=== PATIENT | female | born 1955 | race Caucasian/White ===

== ENCOUNTER 2017-06-30 00:04 | Emergency (ER) | payer MEDICAID ==
[~2017-06-30] VITALS: Ht 154.9 cm; Wt 59.0 kg
[~2017-06-30 00:04] MED LIST: LEVO500T21 PO; METO25TA5 PO
[2017-06-30] MEDS ORDERED: ADENOSINE 6 MG/2 ML INJ IV ONE (00:30)
[2017-06-30 01:19] LABS: Basophils # (auto) 0.1 uL; Basophils % (auto) 0.7 % (0.0-2.0); Eosinophils # (auto) 0.2 uL; Eosinophils % (auto) 2.3 % (0.0-7.0); Hematocrit 44.2 % (36.0-46.0); Hemoglobin 14.4 g/dL (12.2-16.2); Lymphocytes # (auto) 3.3 uL; Lymphocytes % (auto) 39.5 % (10.0-50.0); Mean Corpuscular Hemoglobin 28.9 pg (28.0-32.0); Mean Corpuscular Hgb Conc. 32.5 g/dL (32.0-36.0); Mean Corpuscular Volume 88.8 fL (80.0-100.0); Mean Platelet Volume 9.6 fL (6.9-10.8); Monocytes # (auto) 0.5 uL; Monocytes % (auto) 5.6 % (0.0-12.0); Neutrophils # (auto) 4.3 uL; Neutrophils % (auto) 51.9 % (37.0-80.0); Nucleated Red Blood Cells % 0.1 %; Platelet Count (auto) 275 10^3/uL (140-450); Red Cell Distribution Width 14.9 % (11.8-14.3); White Blood Cell 8.3 10^3/uL (4.4-10.8)
[2017-06-30 01:31] LABS: Albumin 3.2 g/dL (3.4-5.0); BUN/Creatinine Ratio 17.3; Calcium 8.1 mg/dL (8.5-10.1); Magnesium 2.5 mg/dL (1.6-2.6)
[2017-06-30 01:34] LABS: Bilirubin, Total 0.2 mg/dL (0.2-1.0); Total Protein 6.8 g/dL (6.4-8.2)
[2017-06-30 01:41] LABS: Temperature: 21.1 C (20.0-25.0)
[2017-06-30 02:11] VITALS: BP 168/108
[2017-06-30] MEDS ORDERED: FUROSEMIDE 20 MG/2 ML VIAL IV ONE (02:15)
== END 2017-06-30 02:58 | disposition home or self-care (01) ==
LOC: EDBD 00:04 → ER 00:16
DX: I47.1 Supraventricular tachycardia (principal); I50.9 Heart failure, unspecified; E07.9 Disorder of thyroid, unspecified; F17.210 Nicotine dependence, cigarettes, uncomplicated; Z79.899 Other long term (current) drug therapy
CPT/HCPCS: 36415; 71010; 80053; 83735; 83880; 84484; 85025; 93005; 96374; 96375; 99285; J1940

== ENCOUNTER 2017-07-28 21:27 | Inpatient (IN) | payer MEDICAID ==
[~2017-07-28] VITALS: Ht 162.6 cm; Wt 72.6 kg
[2017-07-28 22:03] LABS: Basophils # (auto) 0.1 uL; Basophils % (auto) 1.2 % (0.0-2.0); Eosinophils # (auto) 0.1 uL; Eosinophils % (auto) 1.2 % (0.0-7.0); Hematocrit 41.2 % (36.0-46.0); Hemoglobin 13.6 g/dL (12.2-16.2); Lymphocytes # (auto) 1.7 uL; Lymphocytes % (auto) 24.5 % (10.0-50.0); Mean Corpuscular Hemoglobin 29.3 pg (28.0-32.0); Mean Corpuscular Volume 88.8 fL (80.0-100.0); Monocytes # (auto) 0.4 uL; Monocytes % (auto) 6.3 % (0.0-12.0); Neutrophils # (auto) 4.6 uL; Neutrophils % (auto) 66.8 % (37.0-80.0); Nucleated Red Blood Cells % 0.1 %; Platelet Count (auto) 298 10^3/uL (140-450); Red Blood Cells 4.64 10^6/uL (4.0-5.20); Red Cell Distribution Width 14.7 % (11.8-14.3); White Blood Cell 6.9 10^3/uL (4.4-10.8)
[2017-07-28 22:24] LABS: INR 0.93 (0.9-1.15); Partial Thromboplastin Time 26.4 sec (22.64-33.71); Prothrombin Time 10.1 sec (9.37-12.3)
[2017-07-28 22:26] LABS: Alanine Aminotransferase 24 U/L (13-56); Alkaline Phosphatase 101 U/L (45-117); Anion Gap 7 (5-15); Aspartate Aminotransferase 20 U/L (15-37); BUN/Creatinine Ratio 23.2; Bilirubin, Total 0.1 mg/dL (0.2-1.0); Blood Urea Nitrogen 22 mg/dL (7-18); Calcium 7.5 mg/dL (8.5-10.1); Carbon Dioxide 22 mmol/L (21-32); Chloride 116 mmol/L (98-107); GFR African American 77 mL/min; GFR Non-African American 63 mL/min; Glucose 84 mg/dL (74-106); Magnesium 2.5 mg/dL (1.6-2.6); Potassium 3.7 mmol/L (3.5-5.1); Sodium 145 mmol/L (136-145); Total Protein 6.3 g/dL (6.4-8.2)
[2017-07-29 00:50] LABS: Alcohol, Urine < 3.0 mg/dL (0-5); Amphetamine Screen, Urine POSITIVE (NEGATIVE); Barbiturate Scree,Urine NEGATIVE (NEGATIVE); Benzodiazephine Screen, Urine NEGATIVE (NEGATIVE); Cannabinoid Screen, Urine NEGATIVE (NEGATIVE); Cocaine Screen, Urine NEGATIVE (NEGATIVE); Opiate Scree,Urine NEGATIVE (NEGATIVE); Phencyclidine Screen, Urine NEGATIVE (NEGATIVE)
[2017-07-29 01:01] LABS: Urine Blood Normal /uL (Negative); Urine Specific Gravity 1.027 (1.001-1.035)
[2017-07-29 01:03] LABS: Urine Bacteria MODERATE /hpf (None Seen); Urine WBC 5 /hpf (0 - 5)
[2017-07-29 01:04] LABS: Urine Hyaline Cast FEW /lpf (0 - 2)
[2017-07-29] MEDS ORDERED: MORPHINE SULF INJ 2 MG/ML SYRINGE 1ML IV PRN (04:30)
[2017-07-29] MEDS ORDERED: ONDANSETRON HCL 4 MG/2 ML VIAL IV PRN (04:30)
[2017-07-29] MEDS ORDERED: ACETAMINOPHEN 500 MG TAB PO PRN (04:30)
[2017-07-29] MEDS ORDERED: NITROGLYCERIN 0.4 MG SL TAB SL PRN (04:30)
[2017-07-29] MEDS ORDERED: HYDROcodone-ACET 5/325MG TAB PO PRN (04:30)
[2017-07-29] MEDS ORDERED: FUROSEMIDE 40 MG/4 ML VIAL IV ONE (04:30)
[2017-07-29] MEDS ORDERED: cefTRIAXone SOD 1,000 MG VL ONE (04:34)
[2017-07-29] MEDS ORDERED: cefTRIAXone 1GM/10ml IVPUSH 10 ML IV ONE (05:00)
[2017-07-29 06:05] LABS: Basophils # (auto) 0.1 uL; Basophils % (auto) 1.5 % (0.0-2.0); Eosinophils # (auto) 0.1 uL; Eosinophils % (auto) 1.7 % (0.0-7.0); Hematocrit 44.5 % (36.0-46.0); Hemoglobin 14.5 g/dL (12.2-16.2); Lymphocytes # (auto) 2.7 uL; Lymphocytes % (auto) 37.4 % (10.0-50.0); Mean Corpuscular Hemoglobin 28.8 pg (28.0-32.0); Mean Corpuscular Hgb Conc. 32.7 g/dL (32.0-36.0); Mean Corpuscular Volume 88.3 fL (80.0-100.0); Monocytes # (auto) 0.5 uL; Monocytes % (auto) 6.9 % (0.0-12.0); Neutrophils # (auto) 3.7 uL; Neutrophils % (auto) 52.5 % (37.0-80.0); Nucleated Red Blood Cells % 0.1 %; Platelet Count (auto) 289 10^3/uL (140-450); Red Blood Cells 5.03 10^6/uL (4.0-5.20); Red Cell Distribution Width 14.3 % (11.8-14.3); White Blood Cell 7.1 10^3/uL (4.4-10.8)
[2017-07-29 06:34] LABS: BUN/Creatinine Ratio 23.8; Calcium 8.1 mg/dL (8.5-10.1); Potassium 4.1 mmol/L (3.5-5.1)
[2017-07-29] MEDS ORDERED: METOPROLOL TARTRATE 25 MG TAB PO SCH (10:00)
[2017-07-29 14:28] VITALS: BP 119/74
[2017-07-30] MEDS ORDERED: cefTRIAXone 1GM/10ml IVPUSH 10 ML IV SCH (09:00)
[2017-07-30] MEDS ORDERED: FUROSEMIDE 20 MG TAB PO SCH (10:00)
== END 2017-07-29 14:57 | disposition left against medical advice (07) | DRG 201 ==
LOC: EDSEX 21:27 → EDBD 21:27 → ER 21:27 → TELE 21:28
PROVIDERS: ADMIT Nurse Practitioner Family; ATTEND Internal Medicine
DX: I47.1 Supraventricular tachycardia (principal); I50.33 Acute on chronic diastolic (congestive) heart failure; E44.0 Moderate protein-calorie malnutrition; F15.10 Other stimulant abuse, uncomplicated; I11.0 Hypertensive heart disease with heart failure; Z82.49 Family history of ischemic heart disease and other diseases of the circulatory system; Z71.6 Tobacco abuse counseling; N39.0 Urinary tract infection, site not specified; T43.625A Adverse effect of amphetamines, initial encounter
CPT/HCPCS: 36415; 71045; 80048; 80053; 80307; 81001; 83735; 83880; 84484; 85025; 85379; 85610; 85730; 93005; 96374; 96375; J0696

== ENCOUNTER 2017-08-08 03:39 | Emergency (ER) | payer MEDICAID ==
[~2017-08-08] VITALS: Ht 154.9 cm; Wt 59.0 kg
[2017-08-08] MEDS ORDERED: ADENOSINE 6 MG/2 ML INJ IV ONE ×5 (03:54→04:30)
[2017-08-08 04:52] LABS: Basophils # (auto) 0 uL; Basophils % (auto) 0.9 % (0.0-2.0); Eosinophils # (auto) 0.2 uL; Eosinophils % (auto) 3.8 % (0.0-7.0); Hematocrit 41.4 % (36.0-46.0); Hemoglobin 13.5 g/dL (12.2-16.2); Lymphocytes # (auto) 1.8 uL; Lymphocytes % (auto) 34.8 % (10.0-50.0); Mean Corpuscular Hemoglobin 28.7 pg (28.0-32.0); Mean Corpuscular Hgb Conc. 32.6 g/dL (32.0-36.0); Mean Corpuscular Volume 88.2 fL (80.0-100.0); Monocytes # (auto) 0.4 uL; Monocytes % (auto) 7.6 % (0.0-12.0); Neutrophils # (auto) 2.7 uL; Neutrophils % (auto) 52.9 % (37.0-80.0); Nucleated Red Blood Cells % 0.1 %; Platelet Count (auto) 219 10^3/uL (140-450); Red Blood Cells 4.69 10^6/uL (4.0-5.20); Red Cell Distribution Width 14.8 % (11.8-14.3)
[2017-08-08] MEDS ORDERED: ONDANSETRON HCL 4 MG/2 ML VIAL IV ONE (05:00)
[2017-08-08] MEDS ORDERED: SODIUM CHLORIDE 0.9% 1,000 ML IV ONE (05:00)
[2017-08-08 05:09] LABS: Alanine Aminotransferase 37 U/L (13-56); Albumin 3.2 g/dL (3.4-5.0); Anion Gap 9 (5-15); Calcium 8.1 mg/dL (8.5-10.1); Carbon Dioxide 24 mmol/L (21-32); Chloride 107 mmol/L (98-107); Glucose 105 mg/dL (74-106); Magnesium 2.2 mg/dL (1.6-2.6); Potassium 3.9 mmol/L (3.5-5.1); Sodium 140 mmol/L (136-145)
[2017-08-08 05:12] LABS: Alkaline Phosphatase 97 U/L (45-117); Aspartate Aminotransferase 35 U/L (15-37); Bilirubin, Total 0.2 mg/dL (0.2-1.0); Blood Urea Nitrogen 13 mg/dL (7-18); GFR African American 92 mL/min; GFR Non-African American 76 mL/min; Total Protein 6.7 g/dL (6.4-8.2)
[2017-08-08 05:56] VITALS: BP 144/94
== END 2017-08-08 06:03 | disposition home or self-care (01) ==
LOC: EDBD 03:39 → ER 03:39
DX: I47.1 Supraventricular tachycardia (principal); R00.2 Palpitations; F15.10 Other stimulant abuse, uncomplicated; F17.210 Nicotine dependence, cigarettes, uncomplicated; F12.10 Cannabis abuse, uncomplicated; Z79.2 Long term (current) use of antibiotics; Z79.899 Other long term (current) drug therapy
CPT/HCPCS: 36415; 71045; 80053; 83735; 84443; 84484; 85025; 93005; 96361; 96374; 99285; J0153

== ENCOUNTER 2017-08-19 02:21 | Emergency (ER) | payer MEDICAID ==
[~2017-08-19] VITALS: Ht 154.9 cm; Wt 59.0 kg
[2017-08-19] MEDS ORDERED: LORazepam 2MG/ML-1ML VIAL IV ONE (02:30)
[2017-08-19] MEDS ORDERED: ADENOSINE 6 MG/2 ML INJ IV ONE ×2 (02:37→02:45)
[2017-08-19 05:07] VITALS: BP 103/55
== END 2017-08-19 05:13 | disposition home or self-care (01) ==
LOC: EDBD 02:21 → ER 02:23
DX: I47.1 Supraventricular tachycardia (principal); F15.10 Other stimulant abuse, uncomplicated; E07.9 Disorder of thyroid, unspecified; F17.210 Nicotine dependence, cigarettes, uncomplicated; F12.10 Cannabis abuse, uncomplicated
CPT/HCPCS: 92960; 93005; 96374; 96375; 99284; J0153; J2060

== ENCOUNTER 2019-01-27 18:21 | Emergency (ER) | payer MEDICAID ==
[~2019-01-27] VITALS: Ht 162.6 cm; Wt 65.8 kg
[2019-01-27 18:33] VITALS: BP 171/96
[2019-01-27 19:08] LABS: Basophils # (auto) 0.1 uL; Basophils % (auto) 1.1 % (0.0-2.0); Eosinophils # (auto) 0.1 uL; Eosinophils % (auto) 1.6 % (0.0-7.0); Hematocrit 45.8 % (36.0-46.0); Hemoglobin 15.3 g/dL (12.2-16.2); Lymphocytes # (auto) 1.6 uL; Lymphocytes % (auto) 17.2 % (10.0-50.0); Mean Corpuscular Hemoglobin 28.9 pg (28.0-32.0); Mean Corpuscular Hgb Conc. 33.3 g/dL (32.0-36.0); Mean Corpuscular Volume 86.6 fL (80.0-100.0); Monocytes # (auto) 0.4 uL; Monocytes % (auto) 4.5 % (0.0-12.0); Neutrophils % (auto) 75.6 % (37.0-80.0); Platelet Count (auto) 269 10^3/uL (140-450); Red Blood Cells 5.28 10^6/uL (4.0-5.20); Red Cell Distribution Width 15.5 % (11.8-14.3); White Blood Cell 9.3 10^3/uL (4.4-10.8)
[2019-01-27 19:21] LABS: Albumin 3.9 g/dL (3.4-5.0); Anion Gap 9 (5-15); BUN/Creatinine Ratio 11.5; Blood Urea Nitrogen 12 mg/dL (7-18); Calcium 8.2 mg/dL (8.5-10.1); Carbon Dioxide 24 mmol/L (21-32); Chloride 109 mmol/L (98-107); GFR African American 69 mL/min; GFR Non-African American 57 mL/min; Glucose 108 mg/dL (74-106); Potassium 4.1 mmol/L (3.5-5.1); Sodium 142 mmol/L (136-145)
[2019-01-27 19:26] LABS: Alanine Aminotransferase 22 U/L (13-56); Alkaline Phosphatase 104 U/L (45-117); Aspartate Aminotransferase 19 U/L (15-37); Bilirubin, Total 0.4 mg/dL (0.2-1.0); Total Protein 7.5 g/dL (6.4-8.2)
== END 2019-01-27 20:22 | disposition left against medical advice (07) ==
LOC: ER 18:21 → EDBD 18:21 → ER 20:22
DX: G40.909 Epilepsy, unspecified, not intractable, without status epilepticus (principal); F17.210 Nicotine dependence, cigarettes, uncomplicated; F12.10 Cannabis abuse, uncomplicated; F15.10 Other stimulant abuse, uncomplicated; Z95.0 Presence of cardiac pacemaker; Z86.39 Personal history of other endocrine, nutritional and metabolic disease
CPT/HCPCS: 36415; 80053; 80185; 83735; 84484; 85025

== ENCOUNTER 2024-06-29 20:40 | Emergency (ER) | payer BC, MEDICAID ==
[~2024-06-29] VITALS: Ht 154.9 cm; Wt 59.0 kg
[~2024-06-29 20:40] MED LIST changes: -LEVO500T21 PO; +LEVO500T31 PO
[2024-06-29 21:57] VITALS: TEMP 98.6
[2024-06-29] MEDS ORDERED: PRED10TA PO (22:05)
[2024-06-29] MEDS ORDERED: AMOX875T4 PO (22:05)
--- NOTE | 2024-06-29 22:05 | ED.PDOC ---
SOB-HPI HPI Comments 68-year-old female presents to ER with complaints of cough x2 days. Patient reports that she has been experiencing dry cough and congestion x2 days. Denies any pain. Denies use of medications for current symptoms. Patient presents to ER ambulatory on arrival, with steady gait, in no distress. 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 History: No Pertinent FINANCIAL PLANNING ANALYST History Family History Family History: No family hx of Cancer, No family hx of DM Family History (Other): epilepsy Social History Smoker: Cigarettes, Greater Than 1 Pack/Day Alcohol: Denies ETOH Use Drugs: Denies Drug Use Lives In: Home Constitutional: denies: chills, diaphoresis, fatigue, fever, malaise, sweats, weakness, others EENTM: reports: others (As stated in HPI) Respiratory: reports: others (As stated in HPI) Cardiovascular: denies: chest pain, dizzy spells, diaphoresis, Dyspnea on exertion, edema, irregular heart beat, left arm pain, lightheadedness, palpitations, PND, syncope, others Gastrointestinal: denies: abdomen distended, abdominal pain, blood streaked bowels, constipated, diarrhea, dysphagia, difficulty swallowing, hematemesis, melena, nausea, poor appetite, poor fluid intake, rectal bleeding, rectal pain, vomiting, others Genitourinary: denies: abnormal vagina bleeding, burning, dyspareunia, dysuria, flank pain, frequency, hematuria, incontinence, pain, , vagina discharge, urgency, others Neurological: denies: dizziness, fainting, headache, left sided numbness, left sided weakness, numbness, paresthesia, pre-existing deficit, right sided numbness, right sided weakness, seizure, speech problems, tingling, tremors, weakness, others Musculoskeletal: denies: back pain, gout, joint pain, joint swelling, muscle pain, muscle stiffness, neck pain, others Integumetry: denies: bruises, change in color, change in hair/nails, dryness, laceration, lesions, lumps, rash, wounds, others Allergic/Immunocompromised: denies: Difficulty Healing, Frequent Infections, Hives, Itching, others Hematologic/Lymphatic: denies: anemia, blood clots, easy bleeding, easy bruising, swollen glands, others Endocrine: denies: excessive hunger, excessive sweating, excessive thirst, excessive urination, flushing, intolerance to cold, intolerance to heat, unexplained weight gain, unexplained weight loss, others Psychiatric: denies: anxiety, bipolar disorder, depression, hopeless, panic disorder, schizophrenia, sleepless, suicidal, others Physical Exam General Appearance: No Apparent Distress HEENT: Normal ENT Inspection, PERRL/EOMI, Pharynx Normal, TMs Normal Neck: Full Range of Motion, Non-Tender, Normal Respiratory: Chest Non-Tender, Lungs Clear, No Accessory Muscle Use, No Respiratory Distress, Normal Breath Sounds Cardiovascular: No Murmur, No Gallop, Regular Rate/Rhythm Breast Exam: Deferred Gastrointestinal: NOT DONE Genitalia: Deferred Pelvic: Deferred Rectal: Deferred Extremities: Normal capillary refill, Normal range of motion Neurologic: Alert, wrinkle chaser II-XII nml as Tested, No Motor Deficits, Normal Affect, Normal Mood, No Sensory Deficits Cerebellar Function: Normal Reflexes: Normal Skin: Dry, Normal Color, Warm Peripheral Pulses: 2+ Radial (R), 2+ Radial (L), 2+ Brachial (R), 2+ Brachial (L) Lymphatic: No Adenopathy Was a procedure done? Was a procedure done?: No Sedation Sedation?: No Differential Dx Differential Diagnosis: Pneumonia, Respiratory Distress, Pharyngitis X-Ray, Labs, Meds, VS Vital Signs Date Time Temp Pulse Resp B/P (MAP) Pulse Ox O2 Delivery O2 Flow Rate FiO2 06/29/24 21:57 99 16 94 Room Air 06/29/24 21:57 98.6 0 16 145/103 (117) 94 98.6 06/29/24 21:21 98.6 99 16 145/103 (117) 94 Current Medications Medications (Trade) Dose Ordered Sig/Lianet Route Start Time Stop Time Status Last Admin Ceftriaxone Sodium (Rocephin) 1,000 mg ONCE ONCE IM 06/29/24 22:15 06/29/24 22:16 06/29/24 22:06 Rocephin 1 g IM ordered Smoking cessation discussed and advised Patient in no distress during ER visit/prior to discharge Advised to follow up with PCP in 1-2 days Patient verbalized understanding and agreeable with current plan of care Advised to return to ER immediately if symptoms worsen Time of 1ST Reevaluation: 21:44 Reevaluation 1ST: N/A Patient Education/Counseling: Diagnosis, Treatment, Prognosis, Need For Follow Up Family Education/Counseling: No Family Present Departure 1 Departure Time of Disposition: 22:02 Impression: Primary Impression: Upper respiratory infection Qualified Codes: J06.9 - Acute upper respiratory infection, unspecified Disposition: 01 HOME / SELF CARE / HOMELESS Condition: Stable e-Prescriptions Prednisone (Prednisone) 10 Mg Tab 10 MG PO BID for 5 Days, #10 TAB 0 Refills Prov: NELY CARABALLO 06/29/24 Amoxicillin & Pot Clavulanate (Amoxicillin/Potassium Cla) 875 Mg Tab 1 TAB PO BID for 7 Days, #14 TAB 0 Refills Prov: NELY CARABALLO 06/29/24 Discharged With: Self Critical Care Note Critical Care Time?: No Stability Stability form required: No Heart Score Heart Score: Heart Score Response (Comments) Value History N/A 0 EKG N/A 0 Age N/A 0 Risk Factors N/A 0 Troponin N/A 0 Total 0 NELY CARABALLO Jun 29, 2024 22:05
[2024-06-29] MEDS: cefTRIAXone SOD 1,000 MG VL IM ONE (22:06)
[2024-06-29 22:10] VITALS: BP 108/76; PULSE 101; RESP 18; O2SAT 95
== END 2024-06-29 22:15 | disposition home or self-care (01) ==
LOC: ER 20:40
DX: J06.9 Acute upper respiratory infection, unspecified (principal); I10 Essential (primary) hypertension; F17.210 Nicotine dependence, cigarettes, uncomplicated
CPT/HCPCS: 96372; 99283; J0696

== ENCOUNTER 2024-08-19 18:28 | Emergency (ER) | payer BC, MEDICAID ==
[~2024-08-19] VITALS: Ht 157.5 cm; Wt 69.0 kg
[~2024-08-19 18:28] MED LIST changes: +AMOX875T4 PO; +PRED10TA PO
[2024-08-19 18:55] VITALS: BP 178/97; PULSE 102
--- NOTE | 2024-08-19 18:58 | ED.PDOC ---
SOB-HPI HPI Comments 68-year-old female who came to ER for shortness of breath. Patient has history of hypertension, COPD, status post pacemaker insertion, has been off her medications for 6 months. States for the past 4 days, she has been having flu- like symptoms, with productive cough of whitish sputum, congestion, shortness of breath, wheezing and body pains. Upon arrival blood pressure was 178/97 mm Hg, saturating 93% on room air. Chief Complaint: Shortness of Breath Time Seen by MD: 18:57 Primary Care Provider: ARAM Reviewed notes: Nurses Notes Information Source: Patient Mode of Arrival: Ambulatory Severity: Moderate Timing: Days Duration: Intermittent Context: With Light Exertion PE Risk Factors: None History of: COPD Prehospital treatment: None Modifying Factors: Nothing Associated Signs and Symptoms: Wheeze, Cough, Nasal Congestion If cough with SOB: Productive, White Review of Systems REVIEW OF SYSTEMS: No fever, no chills, or fatigue HEENT: No sore throat, no earache, no congestion, no neck pain. Cardiac: No chest pain. No palpitations. Lungs: (+) shortness of breath, (+) cough. GI: No nausea, no vomiting, no diarrhea, no constipation, no abdominal pain : No dysuria, frequency, or urgency. No hematuria. Musculoskeletal: No joint pain , no joint swelling, no extremity edema. Skin: No rash, no itching. Neuro: No headache, no dizziness, no weakness Vital Signs Vital Signs Date Time Temp Pulse Resp B/P (MAP) Pulse Ox O2 Delivery O2 Flow Rate FiO2 08/19/24 19:33 16 98 Room Air* 0 21 08/19/24 18:55 98.1 102 178/97 (124) Physical Exam General: Awake, alert and oriented. No acute distress. Skin: Skin in warm, dry and intact. Appropriate color for ethnicity. Nailbeds pink with no cyanosis. HEENT: The head is normocephalic and atraumatic. Conjunctivae are clear without exudates or hemorrhage. Sclera is non-icteric. EOM are intact. No signs of nystagmus. Eyelids are normal in appearance without swelling or lesions. Oral mucosa is pink and moist Neck: The neck is supple with normal range of motion. No JVD. Cardiac: Heart rate and rhythm are normal. No murmurs, gallops, or rubs are auscultated. Respiratory: No signs of respiratory distress. Lung sounds are clear in all lobes bilaterally without rales, ronchi, or wheezes. Abdominal: Abdomen is soft, non-tender without distention. Bowel sounds are present and normoactive in all four quadrants. Extremities: Upper and lower extremities are atraumatic in appearance without deformity or edema. Neurological: The patient is awake, alert and oriented to person, place, and time with normal speech. Speech is clear. There is no facial asymmetry. Psychiatric: Appropriate mood and affect. Good judgement and insight. No visual or auditory hallucinations. Past Medical History PAST MEDICAL HISTORY: COPD, HTN Surgical History: Pacemaker AIRCRAFT ENGINE MECHANIC History: No Pertinent AIRCRAFT ENGINE MECHANIC History Family History Family History: No family hx of Cancer, No family hx of DM Family History (Other): epilepsy Social History Smoker: Cigarettes Alcohol: Denies ETOH Use Drugs: Denies Drug Use Lives In: Home Was a procedure done? Was a procedure done?: No Differential Dx Differential Diagnosis: Asthma, Bronchitis, CHF, COPD, Myocardial infarction, Pneumonia, Pulmonary Embolism, Respiratory Distress, URI, Other X-Ray, Labs, Meds, VS Vital Signs Date Time Temp Pulse Resp B/P (MAP) Pulse Ox O2 Delivery O2 Flow Rate FiO2 08/19/24 19:33 16 98 Room Air* 0 21 08/19/24 18:55 98.1 102 20 178/97 (124) 94 08/19/24 18:54 20 94 Room Air* 0 21 Lab Test 08/19/24 19:30 08/19/24 18:51 Range/Units White Blood Count 7.3 4.4-10.8 10^3/uL Red Blood Count 4.85 4.0-5.20 10^6/uL Hemoglobin 14.0 12.2-16.2 g/dL Hematocrit 42.3 36.0-46.0 % Mean Corpuscular Volume 87.2 80.0-100.0 fL Mean Corpuscular Hemoglobin 28.9 28.0-32.0 pg Mean Corpuscular Hemoglobin Concent 33.1 32.0-36.0 g/dL Red Cell Distribution Width 14.1 11.8-14.3 % Platelet Count 262 140-450 10^3/uL Mean Platelet Volume 9.5 6.9-10.8 fL Neutrophils (%) (Auto) 67.3 37.0-80.0 % Lymphocytes (%) (Auto) 24.9 10.0-50.0 % Monocytes (%) (Auto) 5.1 0.0-12.0 % Eosinophils (%) (Auto) 2.0 0.0-7.0 % Basophils (%) (Auto) 0.7 0.0-2.0 % Neutrophils # (Auto) 4.9 1.6-8.6 10 ^3/uL Lymphocytes # (Auto) 1.8 0.4-5.4 10 ^3/uL Monocytes # (Auto) 0.4 0-1.3 10 ^3/uL Eosinophils # (Auto) 0.1 0-0.8 10 ^3/uL Basophils # (Auto) 0.1 0-0.2 10 ^3/uL Nucleated Red Blood Cells 0.1 % Sodium Level 142 136-145 mmol/L Potassium Level 3.5 3.5-5.1 mmol/L Chloride Level 109 H 98-107 mmol/L Carbon Dioxide Level 24 20-31 mmol/L Anion Gap 9 5-15 Blood Urea Nitrogen 9 9-23 mg/dL Creatinine 1.50 H 0.550-1.02 mg/dL Glomerular Filtration Rate Calc 37 >90 mL/min BUN/Creatinine Ratio 6.0 L 10.0-20.0 Serum Glucose 120 H 74-106 mg/dL Calcium Level 9.6 8.7-10.4 mg/dL Total Bilirubin 0.3 0.2-1.0 mg/dL Aspartate Amino Transferase (AST) 15 13-40 U/L Alanine Aminotransferase (ALT) 12 7-40 U/L Alkaline Phosphatase 126 H 46-116 U/L B-Type Natriuretic Peptide 82.46 0-100 pg/mL Total Protein 6.7 5.7-8.2 g/dL Albumin 4.5 3.2-4.8 g/dL Influenza Type A Antigen Negative Negative Influenza Type B Antigen Negative Negative SARS-CoV-2 Antigen (Rapid) Negative NEGATIVE Time of 1ST Reevaluation: 20:44 Reevaluation 1ST: N/A Patient Education/Counseling: Treatment, Other, Pt Unresponsive Family Education/Counseling: No Family Present Departure 1 Departure Time of Disposition: 20:44 Impression: Primary Impression: Cough Additional Impression: Acute kidney injury Disposition: 09 ADMITTED INPATIENT Condition: Stable Comments 68-year-old female who presents to the emergency department with flu-like symptoms. Workup significant for acute kidney injury, GFR is reduced, creatinine elevated compared to previous results. Patient has no known history of chronic kidney disease. Patient was to be admitted for further treatment, evaluation and monitoring however she eloped from the emergency department prior to discussing test results and plan of treatment. Extensive evaluation was performed in attempt to identify or rule out: (See differential diagnosis section) The following tests were ordered, and results were reviewed by me: (See diagnostic results section) The following test were independently interpreted by me: EKG I reviewed and agreed with the following test results read by other providers: N/A I reviewed the following notes from the pt's past medical encounters: July 02, 2024 ED visit Additional information was gathered from interviewing the following independent historians: N/A Discussion of management or test interpretation with external physician/other qualified health daycare teacher: N/A Decision regarding hospitalization or escalation of hospital level of care: Risk and benefits of admission for further treatment of patient's condition was considered. Due to patient's current clinical condition, high risk of decline and poor outcome if discharged and need for further inpatient management and monitoring, patient will be admitted to the hospital. Critical Care Note Critical Care Time?: No Critical care comment: Shortness of breath Stability Stability form required: No Heart Score Heart Score: Heart Score Response (Comments) Value History Moderate Suspicious 1 EKG Normal 0 Age >65 2 Risk Factors >3 or Hx ASHD 2 Troponin Normal limit 0 Total 5 I personally scribed for KENA FULLER MD ([email or web address]) on 08/19/24 at 18:58. Electronically submitted by Balta Romero ([employer]). I personally scribed for KENA FULLER MD ([email or web address]) on 08/19/24 at 20:26. Electronically submitted by Balta Romero ([employer]). KENA FULLER MD Aug 19, 2024 18:58
[2024-08-19 19:33] VITALS: RESP 16; O2SAT 98
[2024-08-19] MEDS: IPRATROPIUM BROM 0.5 MG/2.5ML INH SOL NEB ONE (19:33)
[2024-08-19] MEDS: ALBUTEROL SULF 2.5 MG/0.5ML(0.5%) NEB SOLN NEB ONE (19:33)
[2024-08-19 19:57] LABS: Basophils # (auto) 0.1 10 ^3/uL (0-0.2); Basophils % (auto) 0.7 % (0.0-2.0); Eosinophils # (auto) 0.1 10 ^3/uL (0-0.8); Hematocrit 42.3 % (36.0-46.0); Lymphocytes # (auto) 1.8 10 ^3/uL (0.4-5.4); Lymphocytes % (auto) 24.9 % (10.0-50.0); Mean Corpuscular Hemoglobin 28.9 pg (28.0-32.0); Mean Corpuscular Hgb Conc. 33.1 g/dL (32.0-36.0); Mean Corpuscular Volume 87.2 fL (80.0-100.0); Monocytes # (auto) 0.4 10 ^3/uL (0-1.3); Monocytes % (auto) 5.1 % (0.0-12.0); Neutrophils # (auto) 4.9 10 ^3/uL (1.6-8.6); Neutrophils % (auto) 67.3 % (37.0-80.0); Nucleated Red Blood Cells % 0.1 %; Platelet Count (auto) 262 10^3/uL (140-450); Red Blood Cells 4.85 10^6/uL (4.0-5.20); Red Cell Distribution Width 14.1 % (11.8-14.3); White Blood Cell 7.3 10^3/uL (4.4-10.8)
[2024-08-19 19:58] LABS: Rapid Influenza A Negative (Negative); Rapid Influenza B Negative (Negative)
[2024-08-19 19:59] LABS: COVID19 ANTIGEN SOFIA FIA NEGATIVE (NEGATIVE)
[2024-08-19 20:10] LABS: Alanine Aminotransferase 12 U/L (7-40); Anion Gap 9 (5-15); Aspartate Aminotransferase 15 U/L (13-40); Blood Urea Nitrogen 9 mg/dL (9-23); Calcium 9.6 mg/dL (8.7-10.4); Carbon Dioxide 24 mmol/L (20-31); Potassium 3.5 mmol/L (3.5-5.1); Sodium 142 mmol/L (136-145)
[2024-08-19 20:11] LABS: Albumin 4.5 g/dL (3.2-4.8); Bilirubin, Total 0.3 mg/dL (0.2-1.0); Total Protein 6.7 g/dL (5.7-8.2)
[2024-08-19 20:12] LABS: Alkaline Phosphatase 126 U/L (46-116); Chloride 109 mmol/L (98-107); Glucose 120 mg/dL (74-106)
[2024-08-19] MEDS ORDERED: SODIUM CHLORIDE 0.9% 1,000 ML IV ONE (20:45)
== END 2024-08-19 23:00 | disposition left against medical advice (07) ==
LOC: ER 18:28
DX: N17.9 Acute kidney failure, unspecified (principal); J44.9 Chronic obstructive pulmonary disease, unspecified; I10 Essential (primary) hypertension; F17.210 Nicotine dependence, cigarettes, uncomplicated; Z95.0 Presence of cardiac pacemaker; Z20.822 Contact with and (suspected) exposure to COVID-19
CPT/HCPCS: 36415; 80053; 83880; 85025; 87426; 87804; 94640

== ENCOUNTER 2024-10-15 16:21 | Emergency (ER) | payer BC, MEDICAID ==
[~2024-10-15] VITALS: Ht 154.9 cm; Wt 63.6 kg
--- NOTE | 2024-10-15 17:48 | DVH ---
Procedure: US GALLBLADDER Study Date and Requested Time: 10/15/2024 04:50 PM History: pain Comparison: None Technique: Multiple high resolution martins-scale images obtained of the right upper quadrant of the abd omen with color Doppler for evaluation of blood flow and vascularity as indicated. Findings: Liver normal in size, measuring 14 cm in length, with increased echogenicity and normal contours. No evidence of focal hepatic lesions, intrahepatic or extrahepatic ductal dilatation. Common bile duct i s not visualized. Cholelithiasis with evidence of gallbladder wall thickening or pericholecystic fluid. Negative sonogr aphic Magallanes's sign. Pancreas is obscured by bowel gas Right kidney measures 8 cm in length, with normal contours, echotexture, and cortical thickness. No e vidence of hydronephrosis, calculi, cystic or solid renal lesions. Partially visualized inferior vena cava unremarkable. Impression: Cholelithiasis with no evidence of acute cholecystitis. Slight increased hepatic echogenicity which may be from hepatic disease/hepatic steatosis. Pancreas and common bile duct are obscured by bowel gas. Mild atrophy of the right kidney.
[2024-10-15] MEDS: PANTOPRAZOLE 40 MG/10 ML VIAL INJ IV ONE (18:27)
[2024-10-15] MEDS: PROCHLORPERAZINE EDISYLATE 5 MG/ML 2ML VIAL IV ONE (18:28)
[2024-10-15] MEDS: MORPHINE SULFATE 4 MG/ML SYR/VIAL IV ONE (18:29)
[2024-10-15] MEDS: cloNIDine HCL 0.1 MG TAB PO ONE (18:36)
[2024-10-15 18:44] LABS: Basophils # (auto) 0.1 10 ^3/uL (0-0.2); Basophils % (auto) 0.5 % (0.0-2.0); Eosinophils # (auto) 0.1 10 ^3/uL (0-0.8); Eosinophils % (auto) 0.6 % (0.0-7.0); Hematocrit 51.1 % (36.0-46.0); Hemoglobin 16.7 g/dL (12.2-16.2); Lymphocytes # (auto) 1.4 10 ^3/uL (0.4-5.4); Mean Corpuscular Hemoglobin 28.6 pg (28.0-32.0); Mean Corpuscular Hgb Conc. 32.6 g/dL (32.0-36.0); Mean Corpuscular Volume 87.9 fL (80.0-100.0); Monocytes # (auto) 0.3 10 ^3/uL (0-1.3); Monocytes % (auto) 2.9 % (0.0-12.0); Neutrophils # (auto) 8.9 10 ^3/uL (1.6-8.6); Nucleated Red Blood Cells % 0.2 %; Platelet Count (auto) 234 10^3/uL (140-450); Red Blood Cells 5.82 10^6/uL (4.0-5.20); Red Cell Distribution Width 14.5 % (11.8-14.3); White Blood Cell 10.8 10^3/uL (4.4-10.8)
[2024-10-15 18:55] LABS: Alanine Aminotransferase 14 U/L (7-40); Anion Gap 9 (5-15); Aspartate Aminotransferase 16 U/L (13-40); BUN/Creatinine Ratio 10.6 (10.0-20.0); Blood Urea Nitrogen 10 mg/dL (9-23); Calcium 9.9 mg/dL (8.7-10.4); Carbon Dioxide 24 mmol/L (20-31); Lipase 42 U/L (12-53); Potassium 3.7 mmol/L (3.5-5.1); Sodium 142 mmol/L (136-145)
[2024-10-15 18:56] LABS: Bilirubin, Total 0.5 mg/dL (0.2-1.0)
[2024-10-15 19:10] LABS: Albumin 5.1 g/dL (3.2-4.8); Alkaline Phosphatase 148 U/L (46-116); Chloride 109 mmol/L (98-107); Glucose 172 mg/dL (74-106)
[2024-10-15 19:15] VITALS: RESP 88; O2SAT 95
--- NOTE | 2024-10-15 19:17 | ECG ---
[facility] Test Date: 2024-10-15 Test Time: 16:25:31 Pat Name: ROMEL ARAUJO Department: ED Room: Gender: F Bed Operator: delio : 1955 Requested By: BE FARRIS Order Number: [id number] Reading MD: Adrian Silva Measurements Intervals [place] Rate: 98 P: 50 MO: 176 QRS: -37 QRSD: 85 T: 58 QT: 375 QTc: 479 Interpretive Statements Sinus rhythm Left atrial enlargement Left axis deviation Anterior infarct, old Baseline wander in lead(s) II Electronically Signed On 10-16-2024 18:19:51 PDT by Adrian Silva Please click the below link to view image of tracing.
--- NOTE | 2024-10-15 19:55 | ED.PDOC ---
GI ASSESSMENT HPI Comments This is a 68-year-old female who comes in with chief complaint of abdominal pain times approximately 45 minutes. Patient states that she was [facility] approximately one month ago and was diagnosed with gallstones. She states that she was discharged at that time. The patient denies any nausea, vomiting or diarrhea. There has been no radiation of the pain and the patient was complaining of some bloating. Upon arrival, the patient was complaining of a significant amount of pain. 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, Medications, Allergies (No allergies to medications) Allergies: Coded Allergies: NO KNOWN ALLERGIES (Unverified , 08/19/17) Home Meds Active Scripts Prednisone (Prednisone) 10 Mg Tab, 10 MG PO BID for 5 Days, #10 TAB 0 Refills Prov:NELY CARABALLO 06/29/24 Amoxicillin & Pot Clavulanate (Amoxicillin/Potassium Cla) 875 Mg Tab, 1 TAB PO BID for 7 Days, #14 TAB 0 Refills Prov:NELY CARABALLO 06/29/24 Metoprolol Tartrate (Metoprolol Tartrate) 25 Mg Tab, 12.5 MG PO BID for 30 Days Prov:DOMINIQUE LEE MD 03/27/15 Levofloxacin (Levaquin) 500 Mg Tab, 500 MG PO DAILY for 3 Days Prov:DOMINIQUE LEE MD 03/27/15 Information Source: Patient, Emergency Med Personnel Mode of Arrival: EMS Timing: Minutes Duration: Since onset Prehospital treatment: Burning Supervisor Quality: Aching, Cramping Vomitus: None Stool: Normal Severity: Moderate Recent: None Recent Hx of: Other (Gallstones) Pain Location: Diffuse Modifying Factors: Nothing Associated sign and symptoms: Abdominal Pain, Other (Bloating) Past Medical History PAST MEDICAL HISTORY: COPD, Gallstones, HTN, Seizures Surgical History: Pacemaker 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 ASSEMBLER History: No Pertinent PUNCHBOARD ASSEMBLER History Family History Family History: No family hx of Cancer, No family hx of DM Family History (Other): epilepsy Social History Smoker: Cigarettes Alcohol: Denies ETOH Use Drugs: Denies Drug Use Lives In: Home Constitutional: denies: chills, diaphoresis, fatigue, fever, malaise, sweats, weakness, others EENTM: denies: blurred vision, double vision, ear bleeding, ear discharge, ear drainage, ear pain, ear ringing, eye pain, eye redness, hearing loss, mouth pain, mouth swelling, nasal discharge, nose bleeding, nose congestion, nose pain, photophobia, tearing, throat pain, throat swelling, voice changes, others Respiratory: denies: cough, hemoptysis, orthopnea, SOB at rest, shortness of breath, SOB with excertion, stridor, wheezing, others Cardiovascular: denies: chest pain, dizzy spells, diaphoresis, Dyspnea on exertion, edema, irregular heart beat, left arm pain, lightheadedness, palpitations, PND, syncope, others Gastrointestinal: reports: abdominal pain, nausea, vomiting; denies: abdomen distended, blood streaked bowels, constipated, diarrhea, dysphagia, difficulty swallowing, hematemesis, melena, poor appetite, poor fluid intake, rectal bleeding, rectal pain, others Genitourinary: denies: abnormal vagina bleeding, burning, dyspareunia, dysuria, flank pain, frequency, hematuria, incontinence, pain, , vagina dis charge, urgency, others Neurological: denies: dizziness, fainting, headache, left sided numbness, left sided weakness, numbness, paresthesia, pre-existing deficit, right sided numbness, right sided weakness, seizure, speech problems, tingling, tremors, weakness, others Musculoskeletal: denies: back pain, gout, joint pain, joint swelling, muscle pain, muscle stiffness, neck pain, others Integumetry: denies: bruises, change in color, change in hair/nails, dryness, laceration, lesions, lumps, rash, wounds, others Allergic/Immunocompromised: denies: Difficulty Healing, Frequent Infections, Hives, Itching, others Hematologic/Lymphatic: denies: anemia, blood clots, easy bleeding, easy bruising, swollen glands, others Endocrine: denies: excessive hunger, excessive sweating, excessive thirst, excessive urination, flushing, intolerance to cold, intolerance to heat, unexplained weight gain, unexplained weight loss, others Psychiatric: denies: anxiety, bipolar disorder, depression, hopeless, panic disorder, schizophrenia, sleepless, suicidal, others Physical Exam General Appearance: Moderate Distress HEENT: Normal ENT Inspection, Pharynx Normal, TMs Normal Neck: Full Range of Motion, Non-Tender, Normal, Normal Inspection Respiratory: Chest Non-Tender, Lungs Clear, No Accessory Muscle Use, No Respiratory Distress, Normal Breath Sounds Cardiovascular: No Edema, No JVD, No Murmur, No Gallop, Normal Peripheral Pulses, Regular Rate/Rhythm Breast Exam: Deferred Gastrointestinal: Epigastric, No Organomegaly, No Pulsatile Mass, Normal Bowel Sounds, Soft, Tenderness Genitalia: Deferred Pelvic: Deferred Rectal: Deferred Extremities: No calf tenderness, Normal capillary refill, Normal inspection, Normal range of motion, Non-tender, No pedal edema Musculoskeletal : Apperance: Normal Neurologic: Alert, 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 Was a procedure done?: No GI differential Dx Differential Diagnosis: Appendicitis, Cholangitis, Cholecystitis, Gastritis/PUD, Gastroenteritis, Inflammatory BD, Ischemic Bowel X-Ray, Labs, Meds, VS Vital Signs Date Time Temp Pulse Resp B/P (MAP) Pulse Ox O2 Delivery O2 Flow Rate FiO2 10/15/24 19:10 97 17 238/158 (184) 93 10/15/24 19:06 106 10/15/24 19:02 97 17 238/158 10/15/24 18:36 208/153 10/15/24 18:33 98.0 100 18 208/153 (171) 96 98.0 10/15/24 18:29 100 18 208/153 10/15/24 17:58 Room Air* 0 21 10/15/24 16:35 97.8 105 24 166/97 (120) 95 97.8 10/15/24 16:25 98 Lab Test 10/15/24 18:26 Range/Units White Blood Count 10.8 4.4-10.8 10^3/uL Red Blood Count 5.82 H 4.0-5.20 10^6/uL Hemoglobin 16.7 H 12.2-16.2 g/dL Hematocrit 51.1 H 36.0-46.0 % Mean Corpuscular Volume 87.9 80.0-100.0 fL Mean Corpuscular Hemoglobin 28.6 28.0-32.0 pg Mean Corpuscular Hemoglobin Concent 32.6 32.0-36.0 g/dL Red Cell Distribution Width 14.5 H 11.8-14.3 % Platelet Count 234 140-450 10^3/uL Mean Platelet Volume 9.4 6.9-10.8 fL Neutrophils (%) (Auto) 83.0 H 37.0-80.0 % Lymphocytes (%) (Auto) 13.0 10.0-50.0 % Monocytes (%) (Auto) 2.9 0.0-12.0 % Eosinophils (%) (Auto) 0.6 0.0-7.0 % Basophils (%) (Auto) 0.5 0.0-2.0 % Neutrophils # (Auto) 8.9 H 1.6-8.6 10 ^3/uL Lymphocytes # (Auto) 1.4 0.4-5.4 10 ^3/uL Monocytes # (Auto) 0.3 0-1.3 10 ^3/uL Eosinophils # (Auto) 0.1 0-0.8 10 ^3/uL Basophils # (Auto) 0.1 0-0.2 10 ^3/uL Nucleated Red Blood Cells 0.2 % Sodium Level 142 136-145 mmol/L Potassium Level 3.7 3.5-5.1 mmol/L Chloride Level 109 H 98-107 mmol/L Carbon Dioxide Level 24 20-31 mmol/L Anion Gap 9 5-15 Blood Urea Nitrogen 10 9-23 mg/dL Creatinine 0.94 0.550-1.02 mg/dL Glomerular Filtration Rate Calc 66 >90 mL/min BUN/Creatinine Ratio 10.6 10.0-20.0 Serum Glucose 172 H 74-106 mg/dL Calcium Level 9.9 8.7-10.4 mg/dL Total Bilirubin 0.5 0.2-1.0 mg/dL Aspartate Amino Transferase (AST) 16 13-40 U/L Alanine Aminotransferase (ALT) 14 7-40 U/L Alkaline Phosphatase 148 H 46-116 U/L Total Protein 8.0 5.7-8.2 g/dL Albumin 5.1 H 3.2-4.8 g/dL Lipase 42 12-53 U/L Current Medications Medications (Trade) Dose Ordered Sig/Lianet Route Start Time Stop Time Status Last Admin Morphine Sulfate 4 mg ONCE ONCE IV 10/15/24 16:30 10/15/24 16:31 DC 10/15/24 18:29 Prochlorperazine Edisylate (Compazine Inj) 10 mg ONCE ONCE IV 10/15/24 16:30 10/15/24 16:31 DC 10/15/24 18:28 Pantoprazole Sodium (Protonix) 40 mg ONCE ONCE IV 10/15/24 16:30 10/15/24 16:31 DC 10/15/24 18:27 Clonidine HCl (Catapres Tablet) 0.2 mg ONCE ONCE PO 10/15/24 18:15 10/15/24 18:18 DC 10/15/24 18:36 Gallbladder ultrasound shows: Impression: Cholelithiasis with no evidence of acute cholecystitis. Slight increased hepatic echogenicity which may be from hepatic disease/hepatic steatosis. Pancreas and common bile duct are obscured by bowel gas. Mild atrophy of the right kidney. The patient had an IV Hep-Lock established The patient was given morphine 4 mg IV push for the pain The patient was given Compazine 10 mg IV push for the nausea The patient was given Protonix 40 mg IV push The patient was also given clonidine 0.2 mg by mouth secondary to elevated blood pressure The patient was blood pressure continues to be significantly elevated so we did start the patient on a nicardipine drip The patient's CBC is within normal limits The chemistry panel is within normal limits with a normal lipase and liver enzymes Despite the pain medication, the patient was still having persistent pain The patient was being admitted with a diagnosis of intractable abdominal pain as well as cholelithiasis The patient was also admitted with accelerated hypertension Images Reviewed?: Images reviewed and evaluated by me Time of 1ST Reevaluation: 19:52 Reevaluation 1ST: Unchanged Patient Education/Counseling: Diagnosis, Treatment, Prognosis Family Education/Counseling: No Family Present Departure 1 Departure Time of Disposition: 19:51 Impression: Primary Impression: Accelerated hypertension Additional Impressions: Cholelithiasis Qualified Codes: K80.20 - Calculus of gallbladder without cholecystitis without obstruction Intractable abdominal pain Disposition: ADMITTED INPATIENT Admit to: [facility] Condition: Fair Critical Care Note Critical Care Time?: Yes (35 min-critical care time only) Stability Stability form required: Yes Unstable for transfer: ICU, CCU, PCU, [facility] (Intensive VS monitoring), ED Physician Assesment (Clinical assesment) Heart Score Heart Score: Heart Score Response (Comments) Value History N/A 0 EKG N/A 0 Age N/A 0 Risk Factors N/A 0 Troponin N/A 0 Total 0 BE FARRIS MD Oct 15, 2024 19:55
[2024-10-15] MEDS: HYDROmorphone HCL 2 MG/ML VL/or syr IV ONE (20:03)
[2024-10-15] MEDS: ONDANSETRON HCL 4 MG/2 ML VIAL IV ONE (20:04)
[2024-10-15] MEDS: LABETALOL HCL 20 MG/4 ML VL IV ONE ×2 (20:54→21:18)
[2024-10-15] MEDS: IOHEXOL 300 MG/ML 100ML BOTTLE IJ ONE (22:17)
--- NOTE | 2024-10-15 22:23 | DVH ---
Exam: CT CT AB PEL WO CON-NO ORAL OR IV History: ABdominal pain Comparison Study: None available at time of dictation. TECHNIQUE: Multidetector CT of the abdomen was performed from lung bases to pubic symphysis. Imaging was performed without IV contrast. Axial, coronal and sagittal multiplanar reformats were obtained fr om the axial data set by the technologist. Radiation Dose Information: CT Dose: CTDI volume is 12.29 mGy. Dose-length product is 729.01 mGy*cm FINDINGS: Evaluation of solid organs is limited due to lack of intravenous contrast use. Findings: Lung Bases: No acute or significant lung base finding. Normal heart size. No pleural or pericardial effusion. Liver: The liver is normal in size. No focal lesions. Gallbladder and Biliary Tree: Cholelithiasis mildly dilated gallbladder Spleen: Unremarkable Pancreas: The pancreas is grossly normal in appearance. Adrenal Glands: Unremarkable Kidneys: Kidneys are grossly normal without calculi or hydronephrosis. Bladder: Grossly unremarkable for degree of distention. Bowel: Large hiatal hernia. Small bowel and colon are normal in caliber and distribution. The append ix is not visualized; however, no secondary findings of acute appendicitis identified. Ascites: Absent Lymphadenopathy: No mesenteric, retroperitoneal or periportal lymphadenopathy. Abdominal Wall and Mesentery: Unremarkable. Vasculature: The visualized abdominal aorta is normal in size and caliber. Evaluation of abdominal a nd pelvic vessels is limited due to lack of intravenous contrast. Pelvic Organs: Unremarkable Musculoskeletal: No aggressive focal bony lesions, acute fractures or dislocation. Soft tissues: Unremarkable IMPRESSION: 1. Numerous prominent gallstones and mildly dilated gallbladder 2. No findings of bowel obstruction Radiation optimization: All CT scans at this facility use at least one of these dose optimization remigio hniques: automated exposure control mA and/or kV adjustment per patient size (includes targeted exam s where dose is matched to clinical indication) or iterative reconstruction.
[2024-10-15 23:53] VITALS: O2SAT 92
[2024-10-16 00:30] VITALS: TEMP 97.5
[2024-10-16 02:30] VITALS: BP 106/76; PULSE 72; RESP 16; O2SAT 94
--- NOTE | 2024-10-16 10:22 | DVHDS2 ---
Physician Discharge Progress N Final Diagnosis: Cholelithiasis Uncontrolled blood pressure Noncompliance with home medications Commentary: Commentary 68 y.o. female with HTN, pacemaker was brought to the ED c/o AP after eating dinner. Her SBP on arrival was over 200. Patient admitted that she is not taking her BP medications. Patient has h/o cholelithiasis and stated that "I don't know why they did not do the surgery". Her abdominal US and CT both showed cholelithiasis, otherwise unremarkable. Patient was given Clonidine 0.2 mg PO and Labetalol 20 mg IV before she was taken to CT. After that her BP normalized and remained WNL until she was discharged. Patient was advised to f/u with a [facility] surgeon and hack saw operator to check her pacemaker. She stated that she hasn't been seen by a hack saw operator "for a long time". Patient agreed with the plan. Condition on Discharge: Stable Disposition: Home SNF Discharge Will this Physician continue t: No Discharge Instructions: Diet: Cardiac 2g Na,low cholest Activity: No Restrictions, As Tolerated Follow Up/Referral: General surgery for possible cholecystectomy Cardiology for pacemaker check and blood pressure medications revision The appointments will be schaduled by [facility] and coordinated with the patient in 3 days Medications: Metoprolol 25 mg PO BID Follow Up Care: Discharge Statement: "Patient was advised to return to the ER or call 911 if any headaches, dizziness, shortness of breath, chest pain, abdominal pain, bleeding, fevers, or worsening of medical condition. Patient was counseled about treatment plan, medications, possible side effects, patientverbalized understanding. All questions were answered to the best of my ability. This discharge took greater then 30 minutes in planning, reviewing documentation, counseling the patient, and discussing with other team members." BUD JULIEN MD Oct 16, 2024 10:22
--- NOTE | 2024-10-18 12:03 | ECG ---
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
== END 2024-10-16 02:58 | disposition home or self-care (01) ==
LOC: ER 16:21 → EDBD 16:21 → EDUNIT# 16:21 → ER 10-16 02:58
DX: I10 Essential (primary) hypertension (principal); K80.20 Calculus of gallbladder without cholecystitis without obstruction; R10.84 Generalized abdominal pain; J44.9 Chronic obstructive pulmonary disease, unspecified; F17.210 Nicotine dependence, cigarettes, uncomplicated; Z95.0 Presence of cardiac pacemaker; Z79.899 Other long term (current) drug therapy; Z79.52 Long term (current) use of systemic steroids
CPT/HCPCS: 36415; 74176; 76705; 80053; 83690; 85025; 93005; 96374; 96375; 99285; J0780; J1171; J2270; J2405; J2470

== ENCOUNTER 2025-01-06 18:30 | Emergency (ER) | payer BC, MEDICAID | END 2025-01-06 18:38 | disposition left against medical advice (07) | LOC: ER 18:38 | DX: Z48.02 Encounter for removal of sutures (principal); Z53.21 Procedure and treatment not carried out due to patient leaving prior to being seen by health care provider ==

== ENCOUNTER 2025-02-08 19:45 | Observation (INO) | payer BC, MEDICAID ==
[~2025-02-08] VITALS: Ht 154.9 cm; Wt 67.4 kg
[2025-02-08] MEDS: ACCU-CHEK COMFORT CURVE STRIP VI SCH (11:29)
--- NOTE | 2025-02-08 20:24 | ED.PDOC ---
SOB-HPI HPI Comments 69 year old female presents to the ED with a chief complaint of shortness of breath onset 1 day. Patient states she has been experiencing shortness of breath and cough for the past day, worsen today. She had a CABG at [facility] 1 month ago, uses O2 4L NC at night. Upon ED arrival, O2 sat was 91% on RA. PMHx COPD, a-fib, HTN, seizure. Denies chest pain, headache, dizziness, nausea, vomiting, fever, chills. No other associated symptoms, modifiers, recent injuries or sick contacts present at this time. Chief Complaint: Shortness of Breath Time Seen by MD: 20:05 Primary Care Provider: none Reviewed notes: Medications, Allergies Information Source: Patient Mode of Arrival: Wheelchair Severity: Moderate Timing: Days Duration: Since onset Context: At Rest PE Risk Factors: Recent Surgery (CABG 1 month ago) History of: COPD Prehospital treatment: None Modifying Factors: Nothing Associated Signs and Symptoms: Cough Past Medical History PAST MEDICAL HISTORY: AFIB, COPD, Gallstones, HTN, Seizures Surgical History: CABG, Pacemaker STOREPERSON History: No Pertinent STOREPERSON History Family History Family History: No family hx of Cancer, No family hx of DM Family History (Other): epilepsy Social History Smoker: Cigarettes Alcohol: Denies ETOH Use Drugs: Denies Drug Use Lives In: Home Constitutional: denies: chills, diaphoresis, fatigue, fever, malaise, sweats, weakness, others EENTM: denies: blurred vision, double vision, ear bleeding, ear discharge, ear drainage, ear pain, ear ringing, eye pain, eye redness, hearing loss, mouth pain, mouth swelling, nasal discharge, nose bleeding, nose congestion, nose pain, photophobia, tearing, throat pain, throat swelling, voice changes, others Respiratory: reports: cough, shortness of breath; denies: hemoptysis, orthopnea, SOB at rest, SOB with excertion, stridor, wheezing, others Cardiovascular: denies: chest pain, dizzy spells, diaphoresis, Dyspnea on exertion, edema, irregular heart beat, left arm pain, lightheadedness, palpitations, PND, syncope, others Gastrointestinal: denies: abdomen distended, abdominal pain, blood streaked bowels, constipated, diarrhea, dysphagia, difficulty swallowing, hematemesis, melena, nausea, poor appetite, poor fluid intake, rectal bleeding, rectal pain, vomiting, others Genitourinary: denies: abnormal vagina bleeding, burning, dyspareunia, dysuria, flank pain, frequency, hematuria, incontinence, pain, , vagina discharge, urgency, others Neurological: denies: dizziness, fainting, headache, left sided numbness, left sided weakness, numbness, paresthesia, pre-existing deficit, right sided numbness, right sided weakness, seizure, speech problems, tingling, tremors, we akness, others Musculoskeletal: denies: back pain, gout, joint pain, joint swelling, muscle pain, muscle stiffness, neck pain, others Integumetry: denies: bruises, change in color, change in hair/nails, dryness, laceration, lesions, lumps, rash, wounds, others Allergic/Immunocompromised: denies: Difficulty Healing, Frequent Infections, Hives, Itching, others Hematologic/Lymphatic: denies: anemia, blood clots, easy bleeding, easy bruising, swollen glands, others Endocrine: denies: excessive hunger, excessive sweating, excessive thirst, excessive urination, flushing, intolerance to cold, intolerance to heat, unexplained weight gain, unexplained weight loss, others Psychiatric: denies: anxiety, bipolar disorder, depression, hopeless, panic disorder, schizophrenia, sleepless, suicidal, others All Other Systems: Reviewed and Negative Physical Exam General Appearance: Normal HEENT: Normal ENT Inspection, Pharynx Normal, TMs Normal Neck: Full Range of Motion, Non-Tender, Normal, Normal Inspection Respiratory: Chest Non-Tender, Lungs Clear, No Accessory Muscle Use, No Respiratory Distress, Normal Breath Sounds Cardiovascular: No Edema, No JVD, No Murmur, No Gallop, Normal Peripheral Pulses, Regular Rate/Rhythm Breast Exam: Deferred Gastrointestinal: No Organomegaly, Non Tender, No Pulsatile Mass, Normal Bowel Sounds, Soft Genitalia: Deferred Pelvic: Deferred Rectal: Deferred Extremities: No calf tenderness, Normal capillary refill, Normal inspection, Normal range of motion, Non-tender, No pedal edema Musculoskeletal : Apperance: Normal Neurologic: Alert, hydropulper operator II-XII nml as Tested, No Motor Deficits, Normal Affect, Normal Mood, No Sensory Deficits Cerebellar Function: Normal Reflexes: Normal Skin: Dry, Normal Color, Warm Lymphatic: No Adenopathy Was a procedure done? Was a procedure done?: No Differential Dx Differential Diagnosis: Asthma, Bronchitis, CHF, COPD, Dysrhythmia, Hypertension, Hyperventilation, Hyponatremia, Myocardial infarction, Pneumothorax, Pulmonary Embolism, Other X-Ray, Labs, Meds, VS Vital Signs Date Time Temp Pulse Resp B/P (MAP) Pulse Ox O2 Delivery O2 Flow Rate FiO2 02/08/25 20:05 80 02/08/25 19:49 97.7 87 30 143/106 91 97.7 02/08/25 19:49 91 Room Air* 0 21 Lab Test 02/08/25 22:50 02/08/25 22:00 02/08/25 20:52 Range/Units Prothrombin Time Pending Prothrombin Time INR Pending Activated Partial Thromboplast Time Pending White Blood Count 9.5 4.4-10.8 10^3/uL Red Blood Count 4.21 4.0-5.20 10^6/uL Hemoglobin 9.5 L 12.2-16.2 g/dL Hematocrit 31.2 L 36.0-46.0 % Mean Corpuscular Volume 74.0 L 80.0-100.0 fL Mean Corpuscular Hemoglobin 22.7 L 28.0-32.0 pg Mean Corpuscular Hemoglobin Concent 30.6 L 32.0-36.0 g/dL Red Cell Distribution Width 18.8 H 11.8-14.3 % Platelet Count 455 H 140-450 10^3/uL Mean Platelet Volume 8.1 6.9-10.8 fL Neutrophils (%) (Auto) 65.7 37.0-80.0 % Lymphocytes (%) (Auto) 26.0 10.0-50.0 % Monocytes (%) (Auto) 6.1 0.0-12.0 % Eosinophils (%) (Auto) 1.5 0.0-7.0 % Basophils (%) (Auto) 0.7 0.0-2.0 % Neutrophils # (Auto) 6.3 1.6-8.6 10 ^3/uL Lymphocytes # (Auto) 2.5 0.4-5.4 10 ^3/uL Monocytes # (Auto) 0.6 0-1.3 10 ^3/uL Eosinophils # (Auto) 0.1 0-0.8 10 ^3/uL Basophils # (Auto) 0.1 0-0.2 10 ^3/uL Nucleated Red Blood Cells 0.1 % Troponin I High Sensitivity 14 13 </=34 ng/L Sodium Level 141 136-145 mmol/L Potassium Level 3.8 3.5-5.1 mmol/L Chloride Level 106 98-107 mmol/L Carbon Dioxide Level 22 20-31 mmol/L Anion Gap 13 5-15 Blood Urea Nitrogen 10 9-23 mg/dL Creatinine 0.89 0.550-1.02 mg/dL Glomerular Filtration Rate Calc 70 >90 mL/min BUN/Creatinine Ratio 11.2 10.0-20.0 Serum Glucose 111 H 74-106 mg/dL Calcium Level 9.2 8.7-10.4 mg/dL Total Bilirubin 0.2 0.2-1.0 mg/dL Aspartate Amino Transferase (AST) 41 H 13-40 U/L Alanine Aminotransferase (ALT) 19 7-40 U/L Alkaline Phosphatase 204 H 46-116 U/L Total Protein 6.8 5.7-8.2 g/dL Albumin 3.8 3.2-4.8 g/dL Time of 1ST Reevaluation: 20:35 Reevaluation 1ST: Unchanged Patient Education/Counseling: Diagnosis, Treatment, Prognosis Family Education/Counseling: No Family Present Additional Information The following tests were ordered, and results were reviewed by me: EKG, CBC, TROP-x3, CMP, PTPTT, XY CHEST I reviewed and agreed with the following test results read by other providers: XY CHEST I discussed treatment and results with medical personnel and: patient Comprehensive systems review obtained and negative except for what is stated in the HPI. SEPSIS Sepsis Screen Date sepsis recognized/suspect: Feb 08, 2025 Time Sepsis recognized/suspect: 1948 Recent Procedure: Yes On Antibiotic Therapy: No Respiratory Rate >20: Yes Heart Rate >90: No Temp<36 C (96.8 F) or >38.3 C: No SBP <90 or MAP <65 mmHG: No New Acute Mental Status Change: No Is the patient on CPAP, BIPAP,: No Physician Orders Troponin-I Hs (02/09/25 00:00) Troponin-I Hs (02/09/25 03:00) Troponin-I Hs (02/09/25 06:00) Heplock Iv (02/08/25 20:32) PTPTT (02/08/25 20:32) Chest Portable (02/08/25 20:32) Paper Counter (02/08/25 20:32) B-Type Natriuretic Peptide (02/08/25 23:05) Lactic Acid W/ Reflex Order (02/08/25 23:05) Blood Culture (02/08/25 23:05) Furosemide Injection (Lasix Injection) (02/08/25 23:15) Aspirin Tablet (02/08/25 23:15) Ceftriaxone Ivpb Rocephin (02/08/25 23:15) Azithromycin 500mg/ 250ml (Zithromax 50 (02/08/25 23:15) Vital Signs Date Time Temp Pulse Resp B/P (MAP) Pulse Ox O2 Delivery O2 Flow Rate FiO2 02/08/25 20:05 80 02/08/25 19:49 97.7 87 30 143/106 91 97.7 02/08/25 19:49 91 Room Air* 0 21 Laboratory Tests Test 02/08/25 22:00 White Blood Count 9.5 10^3/uL (4.4-10.8) Departure 1 Departure Time of Disposition: 23:17 Impression: Primary Impression: CHF (congestive heart failure) Additional Impressions: Intermediate coronary syndrome Post-op pneumonia Disposition: ADMITTED INPATIENT Admit to: Tele Condition: Guarded Comments Shortness of Breath and Chest Tightness in Post-CABG Patient Chief Complaint: Shortness of breath and chest tightness for 1 day History of Present Illness: Patient is a 69-year-old female who presents to the emergency department with complaints of shortness of breath and chest tightness for the past day. Of note, she underwent coronary artery bypass grafting (CABG) one month ago. The patient reports progressive dyspnea with minimal exertion and a sensation of tightness across her anterior chest. She denies fever, productive cough, orthopnea, or lower extremity edema. Her symptoms have been gradually worsening over the past 24 hours, prompting her visit to the ED today. Review of Systems: Constitutional: No fever, chills, or night sweats. Cardiovascular: Positive for chest tightness. No palpitations or syncope. Respiratory: Positive for shortness of breath. No cough, hemoptysis, or wheezing. Gastrointestinal: No nausea, vomiting, abdominal pain, or changes in bowel habits. Musculoskeletal: No joint pain or swelling. Neurological: No headache, dizziness, or focal weakness. All other systems negative or unable to assess. Medications: Current medications not fully documented in heavy coil winder. Medications administered in ED: - Furosemide (Lasix) - Aspirin - Ceftriaxone (Rocephin) IV - Azithromycin Allergies: No known drug allergies documented in heavy coil winder. Past Medical History: Coronary artery disease, status post CABG one month ago Presumed history of congestive heart failure Anemia Additional past medical history not fully documented in heavy coil winder Past Surgical History: Coronary artery bypass grafting (CABG) one month ago Physical Exam: General: 69-year-old female in moderate respiratory distress. Cardiovascular: Surgical incisions on anterior chest that are healing well without signs of infection. Respiratory: Diminished breath sounds bilaterally. Additional physical exam findings not documented in heavy coil winder. Lab Results: CBC: - Hemoglobin: 9.5 g/dL (Low) - Hematocrit: 31.2% (Low) Chemistry Panel: - Alkaline phosphatase: 204 (Elevated) - ALT (SGPT): 41 (Borderline elevated) Cardiac Enzymes: - Initial Troponin: 13 (Normal) Imaging and Other Relevant Results: Chest X-ray: - Cardiomegaly - Pulmonary vascular congestion consistent with congestive heart failure - Small right pleural effusion - Small to moderate left pleural effusion - Associated atelectasis versus pneumonia Medical Decision Making: Summary Statement: 69-year-old female with recent CABG one month ago presenting with acute onset shortness of breath, chest tightness, and radiographic evidence of congestive heart failure and bilateral pleural effusions with possible pneumonia. Problem List: 1. Acute congestive heart failure exacerbation 2. Bilateral pleural effusions 3. Possible pneumonia 4. Anemia 5. Status post CABG one month ago 6. Mildly elevated liver enzymes Differential Diagnosis: For the patient's dyspnea and chest tightness: 1. CHF exacerbation 2. Post-CABG complication 3. Healthcare-associated pneumonia 4. Pulmonary embolism 5. Acute coronary syndrome 6. Pleural effusion 7. Anemia contributing to symptoms ED Course: Patient presented with shortness of breath and chest tightness. Initial workup revealed anemia, mildly elevated liver enzymes, and normal troponin. Chest X-ray showed cardiomegaly, pulmonary vascular congestion, and bilateral pleural effusions with possible pneumonia. Patient was treated with Lasix for CHF, aspirin for cardiac protection, and IV Rocephin and azithromycin for possible pneumonia. Decision was made to admit the patient for management of CHF exacerbation and post-operative pneumonia following recent CABG. Assessment and Plan: 1. Congestive Heart Failure Exacerbation: - Likely post-CABG complication with radiographic evidence of pulmonary vascular congestion and pleural effusions - Continue IV Lasix for diuresis - Monitor I/O strictly - Daily weights - Cardiology consultation - Consider echocardiogram to assess cardiac function 2. Bilateral Pleural Effusions: - Related to CHF and post-surgical state - Monitor with serial chest imaging - May require thoracentesis if respiratory status deteriorates 3. Possible Pneumonia: - Continue IV antibiotics with Rocephin and azithromycin - Sputum culture if productive cough develops - Monitor for clinical improvement 4. Anemia (Hgb 9.5, Hct 31.2): - Likely multifactorial: post-surgical, chronic disease - Monitor hemoglobin/hematocrit - Consider iron studies - Transfuse if symptomatic or hemodynamically significant 5. Elevated Liver Enzymes: - Alkaline phosphatase 204, ALT 41 - May be related to CHF with hepatic congestion - Monitor with repeat testing Disposition: Admit to inpatient medicine service with cardiology consultation for management of CHF exacerbation and possible pneumonia following recent CABG. Additional Notes: Patient requires admission for CHF exacerbation and possible pneumonia following recent CABG. Billing Information: ICD-10: I50.9 - Heart failure, unspecified ICD-10: J18.9 - Pneumonia, unspecified organism ICD-10: J90 - Pleural effusion, not elsewhere classified ICD-10: Z95.1 - Presence of aortocoronary bypass graft ICD-10: D64.9 - Anemia, unspecified Critical Care Note Critical Care Time?: Yes (35 min-critical care time only) Critical care comment: Total critical care time: Approximately 36 minutes Due to a high probability of clinically significant, life threatening deterioration, the patient required my highest level of preparedness to intervene emergently and I personally spent this critical care time directly and personally managing the patient. This critical care time included obtaining a history; examining the patient; pulse oximetry; ordering and review of studies; arranging urgent treatment with development of a management plan; evaluation of patient's response to treatment; frequent reassessment; and, discussions with other providers. This critical care time was performed to assess and manage the high probability of imminent, life-threatening deterioration that could result in multi-organ failure. It was exclusive of separately billable procedures and treating other patients. Stability Stability form required: No Heart Score Heart Score: Heart Score Response (Comments) Value History Moderate Suspicious 1 EKG Repolarization Disturb 1 Age >65 2 Risk Factors >3 or Hx ASHD 2 Troponin Normal limit 0 Total 6 I personally scribed for FABIAN WRAY MD ([email or web address]) on 02/08/25 at 20:23. Electronically submitted by Kandice Tilley ([email or web address]). I personally scribed for FABIAN WRAY MD ([email or web address]) on 02/08/25 at 20:41. Electronically submitted by Kandice Tilley ([email or web address]). FABIAN WRAY MD Feb 08, 2025 20:23
--- NOTE | 2025-02-08 20:33 | ECG ---
[facility] Test Date: 2025-02-08 Test Time: 20:05:24 Pat Name: ROMEL ARAUJO Department: [facility] ED Room: [address] [place] [address] Gender: F Rn Social Work: JAMES : 1955 Requested By: FABIAN WRAY Order Number: [id number] Reading MD: Adrian Silva Measurements Intervals [place] Rate: 80 P: 0 NC: 0 QRS: -8 QRSD: 95 T: 15 QT: 405 QTc: 468 Interpretive Statements Atrial flutter Ventricular premature complex Anterior infarct, old Nonspecific T abnormalities, inferior leads ST elevation, consider inferior injury Electronically Signed On 02-09-2025 17:54:25 PDT by Adrian Silva Please click the below link to view image of tracing.
--- NOTE | 2025-02-08 21:35 | DVH ---
CHEST RADIOGRAPH Indication: SOB Technique: Single frontal view of the chest was obtained Comparison: None FINDINGS: Lines and Tubes: None. Left-sided approach dual lead pacemaker terminating in the right atrium and r ight ventricle. Lungs: Diffuse interstitial prominence. Bilateral lower lung zone opacities with obscuration of bilat eral hemidiaphragm. No pneumothorax. Cardiomediastinal contours: Unremarkable Bones: No acute osseous abnormality. There is chronic resorption of the right distal clavicle. IMPRESSION: Cardiomegaly with findings suggestive of congestive heart failure and Small right with small to moder ate left-sided pleural effusions and associated atelectasis /pneumonia.
[2025-02-08 21:36] LABS: Chloride 106 mmol/L (98-107); Potassium 3.8 mmol/L (3.5-5.1); Sodium 141 mmol/L (136-145)
[2025-02-08 21:38] LABS: Anion Gap 13 (5-15)
[2025-02-08 21:44] LABS: BUN/Creatinine Ratio 11.2 (10.0-20.0)
[2025-02-08 21:53] LABS: Alanine Aminotransferase 19 U/L (7-40); Albumin 3.8 g/dL (3.2-4.8); Alkaline Phosphatase 204 U/L (46-116); Bilirubin, Total 0.2 mg/dL (0.2-1.0); Blood Urea Nitrogen 10 mg/dL (9-23); Calcium 9.2 mg/dL (8.7-10.4); Carbon Dioxide 22 mmol/L (20-31); Glucose 111 mg/dL (74-106); Total Protein 6.8 g/dL (5.7-8.2)
[2025-02-08 22:17] LABS: Nucleated Red Blood Cells % 0.1 %
[2025-02-08 22:19] LABS: Hematocrit 31.2 % (36.0-46.0); Hemoglobin 9.5 g/dL (12.2-16.2); Mean Corpuscular Hemoglobin 22.7 pg (28.0-32.0); Mean Corpuscular Volume 74.0 fL (80.0-100.0)
[2025-02-08 23:18] LABS: INR 1.05 (0.9-1.15); Partial Thromboplastin Time 27.5 SEC (24.5-34.5); Prothrombin Time 11.1 sec (9.3-11.8)
[2025-02-09] VITALS (12 sets, daily range): BP systolic 142–197; BP diastolic 85–114; PULSE 73–105; RESP 16–26; TEMP 97.9–98; O2SAT 90–100
[2025-02-09] MEDS ORDERED: DEXTROSE (50%) 50ML SYRG IV PRN (01:00)
[2025-02-09] MEDS ORDERED: ONDANSETRON HCL 4 MG/2 ML VIAL IV PRN (01:00)
[2025-02-09] MEDS: NITROGLYCERIN 0.4 MG SL TAB SL ONE (01:00)
[2025-02-09] MEDS: ALBUTEROL SULF 2.5 MG/0.5ML(0.5%) NEB SOLN NEB PRN (01:25)
--- NOTE | 2025-02-09 01:26 | DVH ---
EXAM: CT CHEST WITHOUT CONTRAST History: rule out pneumonia, SOB Comparison Study: None TECHNIQUE: Multidetector CT of the chest was performed. Imaging was performed without IV contrast. Ax ial, coronal, and sagittal multiplanar reformats were obtained from the axial data set by the technol [email or web address]. Radiation Dose : CTDI vol 8.86 mGy, DLP 309.8 mGy*cm. Findings: Evaluation is degraded by respiratory motion. Lungs/pleura: Moderate bilateral pleural effusions with adjacent opacity. 15 mm nodule within the lef t upper lobe. Heart/Great vessels: There is cardiomegaly. Trace pericardial effusion. There are mild atherosclerot ic calcifications of the aorta. There is a left-sided dual-chamber pacemaker. Mediastinum: Chronic appearing defect along the length of the sternum with associated soft tissue den sity abutting the anterior mediastinum, correlation with surgical history is suggested. Soft tissues/Bones: Chronic appearing deformity of the sternum as above. Upper abdomen: Large hiatal hernia /intrathoracic stomach. Impression: 1. Moderate bilateral pleural effusions with adjacent opacity, possibly atelectasis, though superimpo sed infectious/ inflammatory process cannot be excluded in the appropriate clinical setting. 2. 15 mm left upper lobe nodule, suboptimally assessed given respiratory motion. Comparison with any prior outside imaging is suggested. If no prior imaging is available and if the patient meets Fle[employer] hner society guidelines, further evaluation with CT at 3 months, PET-CT, or tissue sampling is sugges kurt. 3. Chronic appearing deformity of the sternum with soft tissue density along the length of the sternu m, sterility indeterminate. Correlation with procedural history and comparison with prior imaging is suggested. 4. Additional findings as detailed.
--- NOTE | 2025-02-09 01:46 | DVH ---
Bilateral Chest Sonogram Clinical history: FLUID CHECK Technique: Limited sonographic evaluation of the bilateral chest was performed. Findings/Impression: There are moderate bilateral pleural effusions.
[2025-02-09] MEDS: FUROSEMIDE 40 MG/4 ML VIAL IV ONE (02:03)
[2025-02-09] MEDS: AZITHROMYCIN 500MG/ 250ML 250 ML IV ONE (02:29)
--- NOTE | 2025-02-09 02:50 | ECG ---
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
[2025-02-09] MEDS ORDERED: VANCOMYCIN PER PHARMACY 0 MG IV SCH (03:00)
--- NOTE | 2025-02-09 04:17 | DVHHP ---
ADMIT DATE: 02/09/2025 CHIEF COMPLAINT: Coming in for shortness of breath. HISTORY OF PRESENT ILLNESS: A 69-year-old female with significant past medical history for coronary artery disease, status post CABG on 11/17/2024, history of recent hospitalization at [facility] from 12/01 to 12/20 secondary to flail sternum with nonunion and superimposed infection, history of diabetes mellitus type 2, essential hypertension, epilepsy, hyperlipidemia, COPD, chronic respiratory failure, on continuous 4 liters nasal cannula oxygen, who presents to Emergency Room with dyspnea on exertion. The patient has a complicated long history of methamphetamine abuse, says last usage was prior to her last hospitalization where she was seen at [facility] from 12/01 to 12/20 due to flail sternum and nonunion with superimposed infection with MRSA with a diagnosis of mediastinitis. The patient was seen by Cardiothoracic Surgery at the time, apparently had chest tubes due to her left pleural effusion as well as VÍCTOR drains due to her sternal infection, which was apparently debrided and was supposed to be transitioned to a [facility] facility on 12/20. The patient apparently left the following day against medical advice and apparently had another encounter after her CABG when she left against medical advice and seems to have a recurrent history of noncompliance. The patient says that she has been taking all her home medications, but is very questionable. The patient says she took her Lasix, last dose was yesterday morning. The patient says that she has noticed that she has lower extremity swelling, but says that the swelling has been there ever since she left the hospital a month ago. The patient says that the swelling possibly might be even a little better. She feels that she does have orthopnea symptoms that have been progressive over the last week. She does have a cough that is dry. No fevers, no chills or diaphoresis, and she does have dyspnea on minimal exertion, which she says is new to her. She denies any chest pain symptoms, diarrhea or constipation, bloody or tarry stools, body aches, fatigue, or nasal congestion. PAST MEDICAL HISTORY: Coronary artery disease, chronic respiratory failure, epilepsy, essential hypertension, hyperlipidemia, diabetes mellitus type 2, COPD, and nonadherence. PAST SURGICAL HISTORY: Three-vessel bypass surgery on 11/17/2024, pacemaker placement about 9 years ago. SOCIAL HISTORY: Is a tobacco user of about a half a pack a day since age 14. No alcohol. Denies any recent illicit drug use, says last time was used prior to her last admission. MEDICATIONS AT HOME: Per medical reconciliation. MEDICATION ALLERGIES: No known drug allergies. REVIEW OF SYSTEMS: A 10-point review of systems was covered with the patient and was negative with the exception to what was present in history of present illness. PHYSICAL EXAMINATION: VITAL SIGNS: Temperature 97, pulse rate 87, respiratory rate of 30, blood pressure 143/106, pulse ox about 91% on 4 liters nasal cannula. GENERAL: Seems to be alert and oriented x 4, not in acute distress female, not using extra respiratory muscles of breathing. HEENT: Normocephalic, atraumatic. Extraocular muscles were intact. Pupils were equally round and react to light and accommodations. Mucous membranes looked dry. CHEST: The patient does have scars from her recent surgery last month of her sternum. The area does not look infected. No erythema seen at the site. No open wounds. LUNGS: Seems to have diminished breath sounds bilaterally up to the mid lung patricio. There is no wheezing or rhonchi otherwise. ABDOMEN: Seems to be soft, nontender, nondistended. Positive bowel sounds. No guarding. No rebound. EXTREMITIES: Lower extremities, has 1+ pitting edema extending up to the upper thigh regions. No clubbing, no cyanosis, no focal deficits. NEUROLOGIC: Cranial nerve testing 2-12 overall seems to be intact. LABORATORY WORKUP: Shows a white count 9.5, H and H of 9.5/31.2, platelet count of 455,000. No neutrophil shift. INR of 1.05. Sodium 141, potassium 3.8, chloride 106, carbon dioxide 22, anion gap of 13, BUN of 10, creatinine 0.89, lactic acid 1.4. AST of 41, ALT of 19, alkaline phosphatase of 204, troponins of 13 and 14, BNP of 558. IMAGING: Chest x-ray was completed, shows that the patient has cardiomegaly with findings suggestive of congestive heart failure and [id number] left-sided pleural effusion and associated atelectasis/pneumonia. CT of the chest was also completed. Impression, moderate bilateral pleural effusions with adjacent opacity, possibly atelectasis, thus superimposed infectious inflammatory process cannot be excluded in appropriate clinical setting. A 15 mm left upper lobe nodule suboptimally assessed given respiratory motion. Comparison with prior outside images is suggested. If no prior imaging is available and if the patient meets Future Society guidelines, further evaluation with CT at 3 months, PET/CT or tissue sampling is suggested. Chronic-appearing deformity of the sternum with soft tissue density along the length of the sternum. Sterility is indeterminate, correlation with procedural history and comparison with prior imaging is suggested. Additional findings as detailed above. EKG shows sinus rhythm with premature ventricular complexes, ventricular rate of 80. This EKG seems to be of poor quality with too much artifact. DIAGNOSES: * Acute congestive heart failure exacerbation. * Bilateral moderate-sized pleural effusions. * 15 mm left upper lobe nodule. * History of noncompliance. SECONDARY DIAGNOSES: * Coronary artery disease s/p 3V BIPAS * Chronic respiratory failure. * Diabetes mellitus type 2. * Essential hypertension. PLAN: The patient will be admitted to the medical telemetry floor under observation for continuous cardiopulmonary monitoring. Cardiology consultation with Dr. Bryant Pabon has been requested. The patient has been initiated on Lasix 40 mg in the ED and overall seems to be improved. We will continue with Lasix 40 mg IV b.i.d. Strict I's and O's to be implemented. We will await further recommendations by Cardiology. Additionally, the patient was found to have an infection of the mediastinum back at [facility], where she was supposed to get continuous IV antibiotics for 4-6 weeks with vancomycin for her MRSA infection. The patient apparently left against medical advice, which she has done in the past and without any further treatment. Current CT imagings that were completed shows that the patient does have some form of density alongside of the length of the sternum, which they cannot determine whether the sternum is sterile. We will consult Infectious Disease for an opinion. We will at this time place the patient on vancomycin prophylactically until further recommendations by Infectious Disease. Additionally, the patient is currently requiring 4 liters, which is her baseline oxygen requirement, satting at about 99%. We will continue with oxygen supplementations to maintain pulse ox above 92%. Consultation with Radiology has been requested for ultrasound-guided thoracentesis for her moderate-sized bilateral pleural effusions. Furthermore, the patient will be placed back on her home metoprolol 25 mg twice a day, lisinopril 20 mg once a day. We will additionally give her hydralazine 10 mg IV p.r.n. q. 6 for SBPs greater than 150. Additionally, the patient will be placed on a diabetic, low-sodium, low-fat diet with Accu-Cheks a.c. and at bedtime and regular insulin, sliding scale insulin. The patient to have CBC and BMP completed in the morning. The patient to have Lovenox 40 mg subcutaneous daily for DVT prophylaxis. The patient is a full code. Further recommendations will depend on patient's hospital progression. Anjel Patel MD LM/HEM TID: [id number] RECEIPT: [id number] MTDD
[2025-02-09 04:35] LABS: Amphetamine Screen, Urine Pos (NEGATIVE); Barbiturate Scree,Urine Neg (NEGATIVE); Benzodiazephine Screen, Urine Neg (NEGATIVE); Cannabinoid Screen, Urine Neg (NEGATIVE); Cocaine Screen, Urine Neg (NEGATIVE); Opiate Scree,Urine Neg (NEGATIVE); Phencyclidine Screen, Urine Neg (NEGATIVE)
[2025-02-09] MEDS: FUROSEMIDE 40 MG/4 ML VIAL IV SCH (06:00)
[2025-02-09] MEDS: LEVOTHYROXINE SODIUM 25 MCG TAB PO SCH (06:31)
[2025-02-09] MEDS: InsuLIN REG 1unit/0.01ml Soln (100units/ml) SC SCH (06:42)
[2025-02-09] MEDS: METOPROLOL TARTRATE 25 MG TAB PO SCH (10:45)
[2025-02-09] MEDS: LISINOPRIL 20 MG TAB PO SCH (10:45)
[2025-02-09] MEDS: ENOXAPARIN SOD 40 MG/0.4 ML SYRINGE SC SCH (10:46)
--- NOTE | 2025-02-09 15:09 | DVH ---
INDICATION: POST THORACENTESIS TECHNIQUE: Single frontal view of the chest was obtained COMPARISON: US CHEST ULTRASOUND on DOS: 02/09/25, CT CHEST WITHOUT CONTRAST on DOS: 02/09/25, XY CHEST PORTABLE on DOS: 02/08/25, XY CHEST PORTABLE on DOS: 02/08/25 FINDINGS: Lines and Tubes: None. Left-sided approach dual lead pacemaker terminating in the right atrium and r ight ventricle. Lungs: Diffuse interstitial prominence. Bilateral lower lung zone opacities with obscuration of bilat eral hemidiaphragm. No pneumothorax. Cardiomediastinal contours: Unremarkable Bones: No acute osseous abnormality. There is chronic resorption of the right distal clavicle. IMPRESSION: No pneumothorax status post right thoracentesis. Decreased right pleural effusion
--- NOTE | 2025-02-09 15:54 | DVH ---
PROCEDURE: ULTRASOUND GUIDED THORACENTESIS USING TEMPORARY CATHETER HISTORY: 69 Female with requiring thoracentesis. DOCUMENTATION: Informed consent was obtained and a procedural time out was performed. TECHNIQUE: Ultrasound was used to locate the right pleural fluid collection with an image archived in the PACS. The skin over the right posterior hemithorax was sterilely prepped, draped, and infiltrate d with 1% lidocaine. Under real time ultrasound guidance, the right pleural space was accessed with a 19-gauge Yueh needle and connected to Vacutainers. The Yueh catheter was advanced, the needle was re moved and the temporary catheter was advanced and connected to the Vacutainer. Approximately 0.8 lite rs of serous fluid was removed. The temporary catheter was removed and sterile dressings were applied . FINDINGS: Ultrasound demonstrates a right pleural effusion. Imaging confirms the needle tip within th e fluid. IMPRESSION: SUCCESSFUL ULTRASOUND GUIDED THORACENTESIS. Performed by Dr. William.
[2025-02-09 16:13] LABS: Hematocrit 33.1 % (36.0-46.0); Hemoglobin 9.9 g/dL (12.2-16.2); Mean Corpuscular Hemoglobin 21.8 pg (28.0-32.0); Mean Corpuscular Volume 72.9 fL (80.0-100.0); Nucleated Red Blood Cells % 0.0 %
[2025-02-09 16:21] LABS: Chloride 103 mmol/L (98-107); Potassium 3.7 mmol/L (3.5-5.1); Sodium 142 mmol/L (136-145)
[2025-02-09 16:22] LABS: Anion Gap 10 (5-15); Calcium 8.9 mg/dL (8.7-10.4); Carbon Dioxide 29 mmol/L (20-31)
[2025-02-09 16:27] LABS: Glucose 106 mg/dL (74-106)
[2025-02-09] MEDS: PIPERACILLIN-TAZOB 3.375GM 100 ML IV SCH (16:29)
[2025-02-09] MEDS: hydrALAZINE HCL 20 MG/ML VL IV PRN (16:30)
[2025-02-09 16:52] LABS: BUN/Creatinine Ratio 15.5 (10.0-20.0); Blood Urea Nitrogen 15 mg/dL (9-23)
[2025-02-09] MEDS: LORazepam 0.5 MG TAB PO PRN (18:56)
[2025-02-09] MEDS: MORPHINE SULFATE INJ 2 MG/ml SYRG IV PRN (19:48)
[2025-02-09] MEDS: VANCOMYCIN 750mg/150ml 150 ML IV SCH (23:20)
--- NOTE | 2025-02-09 23:59 | DVHINCON2 ---
Date of service: Feb 09, 2025 Referring Physician Natty Reason for Consultation Acute diastolic heart failure exacerbation History of Present Illness This is a 69 year old female with a PMH of COPD, a-fib, HTN, seizure who is brought in by EMS with complaint of shortness of breath with a worsening cough x1 day. Patient reports she does use home oxygen at 4L [place] however only uses it at night. Upon ED arrival, patient's O2 sat was 91% on room air.Patent states she recently underwent a CABG at [facility] x1 month ago. HGB 9.5, HCT 31.2. UDS is positive for amphetamines. Chest x-ray shows cardiomegaly with findings suggestive of congestive heart failure and small right with small to moderate left-sided pleural effusions and associated atelectasis /pneumonia. Patient was admitted to the hospital. I am asked to consult on this patient. Family History: Family history: Cardiovascular disease G8 MOTHER G8 FATHER Family history: Depression (situation) G8 MOTHER Allergies: Coded Allergies: NO KNOWN ALLERGIES (Unverified , 08/19/17) Home Meds Active Scripts Prednisone (Prednisone) 10 Mg Tab, 10 MG PO BID for 5 Days, #10 TAB 0 Refills Prov:NELY CARABALLO 06/29/24 Amoxicillin & Pot Clavulanate (Amoxicillin/Potassium Cla) 875 Mg Tab, 1 TAB PO BID for 7 Days, #14 TAB 0 Refills Prov:NELY CARABALLO 06/29/24 Metoprolol Tartrate (Metoprolol Tartrate) 25 Mg Tab, 12.5 MG PO BID for 30 Days Prov:DOMINIQUE LEE MD 03/27/15 Levofloxacin (Levaquin) 500 Mg Tab, 500 MG PO DAILY for 3 Days Prov:DOMINIQUE LEE MD 03/27/15 Current Medications Current Medications Medications (Trade) Dose Ordered Sig/Lianet Route PRN Reason Start Time Stop Time Status Last Admin Ondansetron HCl (Zofran) 4 mg Q4HPRN PRN IV NAUSEA / VOMITING 02/09/25 01:00 Furosemide (Lasix Injection) 40 mg BIDD IV 02/09/25 06:00 Albuterol (Ventolin Medneb) 2.5 mg Q4HPRN PRN NEB SHORTNESS OF BREATH 02/09/25 01:00 02/09/25 11:03 Levothyroxine Sodium (Synthroid Tablet) 25 mcg QAM@0600 PO 02/09/25 06:00 02/09/25 06:31 Diagnostic Test (Pha) (Accu-Chek Comfort Curve T) 1 strip ACHS 02/09/25 07:00 02/09/25 11:43 Insulin Human Regular (InsuLIN R) ACHS SC 02/09/25 07:00 02/09/25 06:42 Dextrose 50 ml UD PRN IV Blood Sugar LESS THAN 60 02/09/25 01:00 Morphine Sulfate 2 mg Q30M PRN IV FOR CHEST PAIN 02/09/25 02:45 Metoprolol Tartrate (Lopressor Tablet) 25 mg BID PO 02/09/25 10:00 02/09/25 10:45 Lisinopril (Zestril Tablet) 20 mg DAILY PO 02/09/25 10:00 02/09/25 10:45 Enoxaparin Sodium (Lovenox) 40 mg DAILY SC 02/09/25 10:00 02/09/25 10:46 Vancomycin HCl 0 ml @ 0 mls/hr UD IV 02/09/25 03:00 Vancomycin HCl 150 ml @ 150 mls/hr Q18H IV 02/09/25 21:00 Review of Systems Constitutional: denies: chills, diaphoresis, fatigue, fever, malaise, sweats, weakness, others EENTM: denies: blurred vision, double vision, ear bleeding, ear discharge, ear drainage, ear pain, ear ringing, eye pain, eye redness, hearing loss, mouth pain, mouth swelling, nasal discharge, nose bleeding, nose congestion, nose pain, photophobia, tearing, throat pain, throat swelling, voice changes, others Respiratory: reports: cough, shortness of breath; denies: hemoptysis, orthopnea, SOB at rest, SOB with excertion, stridor, wheezing, others Cardiovascular: denies: chest pain, dizzy spells, diaphoresis, Dyspnea on exertion, edema, irregular heart beat, left arm pain, lightheadedness, palpitations, PND, syncope, others Gastrointestinal: denies: abdomen distended, abdominal pain, blood streaked bowels, constipated, diarrhea, dysphagia, difficulty swallowing, hematemesis, melena, nausea, poor appetite, poor fluid intake, rectal bleeding, rectal pain, vomiting, others Genitourinary: denies: abnormal vagina bleeding, burning, dyspareunia, dysuria, flank pain, frequency, hematuria, incontinence, pain, , vagina discharge, urgency, others Neurological: denies: dizziness, fainting, headache, left sided numbness, left sided weakness, numbness, paresthesia, pre-existing deficit, right sided numbness, right sided weakness, seizure, speech problems, tingling, tremors, weakness, others Musculoskeletal: denies: back pain, gout, joint pain, joint swelling, muscle pain, muscle stiffness, neck pain, others Integumetry: denies: bruises, change in color, change in hair/nails, dryness, laceration, lesions, lumps, rash, wounds, others Allergic/Immunocompromised: denies: Difficulty Healing, Frequent Infections, Hives, Itching, others Hematologic/Lymphatic: denies: anemia, blood clots, easy bleeding, easy bruising, swollen glands, others Endocrine: denies: excessive hunger, excessive sweating, excessive thirst, excessive urination, flushing, intolerance to cold, intolerance to heat, unexplained weight gain, unexplained weight loss, others Psychiatric: denies: anxiety, bipolar disorder, depression, hopeless, panic disorder, schizophrenia, sleepless, suicidal, others All Other Systems: Reviewed and Negative Vital Signs Vital Signs Date Time Temp Pulse Resp B/P (MAP) Pulse Ox O2 Delivery O2 Flow Rate FiO2 02/09/25 12:43 68 135/102 02/09/25 11:13 19 99 02/09/25 08:39 98.7 98.7 02/09/25 08:39 Nasal Cannula* 4 36 Physical Exam GENERAL: Alert and oriented x 3. No acute distress. EYES: PERRL, EOMI. Anicteric. HENT: Moist mucous membranes. LUNGS: Clear to auscultation bilaterally. CARDIOVASCULAR: Regular rate and rhythm. ABDOMEN: Soft, nontender and nondistended. EXTREMITIES: No edema. NEUROLOGIC: No focal neurological deficits. SKIN: Warm, dry. Labs/Diagnostic Data Labs Test 02/09/25 11:42 02/09/25 09:30 02/09/25 03:33 02/08/25 23:38 Range/Units POC Glucose 113 H 70-106 mg/dl Body Fluid pH 9.0 Urine Opiates Screen Neg NEGATIVE Urine Fentanyl Screen Neg NEGATIVE Urine Barbiturates Screen Neg NEGATIVE Urine Phencyclidine Screen Neg NEGATIVE Urine Amphetamines Screen Pos NEGATIVE Urine Benzodiazepines Screen Neg NEGATIVE Urine Cocaine Screen Neg NEGATIVE Urine Cannabinoids Screen Neg NEGATIVE Lactic Acid Level 1.4 0.4-2.0 mmol/L Test 02/08/25 22:50 02/08/25 22:00 02/08/25 20:52 Range/Units Prothrombin Time 11.1 9.3-11.8 sec Prothrombin Time INR 1.05 0.9-1.15 Activated Partial Thromboplast Time 27.5 24.5-34.5 SEC White Blood Count 9.5 4.4-10.8 10^3/uL Red Blood Count 4.21 4.0-5.20 10^6/uL Hemoglobin 9.5 L 12.2-16.2 g/dL Hematocrit 31.2 L 36.0-46.0 % Mean Corpuscular Volume 74.0 L 80.0-100.0 fL Mean Corpuscular Hemoglobin 22.7 L 28.0-32.0 pg Mean Corpuscular Hemoglobin Concent 30.6 L 32.0-36.0 g/dL Red Cell Distribution Width 18.8 H 11.8-14.3 % Platelet Count 455 H 140-450 10^3/uL Mean Platelet Volume 8.1 6.9-10.8 fL Neutrophils (%) (Auto) 65.7 37.0-80.0 % Lymphocytes (%) (Auto) 26.0 10.0-50.0 % Monocytes (%) (Auto) 6.1 0.0-12.0 % Eosinophils (%) (Auto) 1.5 0.0-7.0 % Basophils (%) (Auto) 0.7 0.0-2.0 % Neutrophils # (Auto) 6.3 1.6-8.6 10 ^3/uL Lymphocytes # (Auto) 2.5 0.4-5.4 10 ^3/uL Monocytes # (Auto) 0.6 0-1.3 10 ^3/uL Eosinophils # (Auto) 0.1 0-0.8 10 ^3/uL Basophils # (Auto) 0.1 0-0.2 10 ^3/uL Nucleated Red Blood Cells 0.1 % Troponin I High Sensitivity 14 </=34 ng/L B-Type Natriuretic Peptide 558.49 0-100 pg/mL Sodium Level 141 136-145 mmol/L Potassium Level 3.8 3.5-5.1 mmol/L Chloride Level 106 98-107 mmol/L Carbon Dioxide Level 22 20-31 mmol/L Anion Gap 13 5-15 Blood Urea Nitrogen 10 9-23 mg/dL Creatinine 0.89 0.550-1.02 mg/dL Glomerular Filtration Rate Calc 70 >90 mL/min BUN/Creatinine Ratio 11.2 10.0-20.0 Serum Glucose 111 H 74-106 mg/dL Calcium Level 9.2 8.7-10.4 mg/dL Total Bilirubin 0.2 0.2-1.0 mg/dL Aspartate Amino Transferase (AST) 41 H 13-40 U/L Alanine Aminotransferase (ALT) 19 7-40 U/L Alkaline Phosphatase 204 H 46-116 U/L Total Protein 6.8 5.7-8.2 g/dL Albumin 3.8 3.2-4.8 g/dL Assessment Acute congestive heart failure exacerbation. Bilateral moderate-sized pleural effusions. 15 mm left upper lobe nodule. History of noncompliance. Coronary artery disease. Chronic respiratory failure. Diabetes mellitus type 2. Essential hypertension. Plan/Recommendation I agree with your ongoing assessment and care of plan. Telemetry reviewed. Trend troponin. Echocardiogram. DVT prophylactics. Diuretics with Lasix. IV Hydralazine for SBP >160. Lisinopril. Metoprolol. Morphine for pain management. IV antibiotics as ordered. Additional plan as per the hospital course. A total of 45 minutes was spent reviewing the patient record, examining the patient, making a diagnostic and therapeutic plan, discussing this plan with medical personnel, following up on diagnostic studies and following the patient for clinical stability excluding any and all procedures. At least 50% of this time was spent in direct, [id number] contact. Plan discussed with: Patient JAIRO CHRISTOPHER MD Feb 09, 2025 14:16
[2025-02-10] VITALS (8 sets, daily range): BP systolic 141–165; BP diastolic 72–80; PULSE 69–82; RESP 19–20; TEMP 98.1–98.4; O2SAT 94–98
[2025-02-10 07:26] LABS: Hemoglobin 9.3 g/dL (12.2-16.2); Mean Corpuscular Hemoglobin 22.2 pg (28.0-32.0); Nucleated Red Blood Cells % 0.1 %
[2025-02-10 07:29] LABS: Chloride 100 mmol/L (98-107); Sodium 141 mmol/L (136-145)
[2025-02-10 07:30] LABS: Anion Gap 10 (5-15); Calcium 8.9 mg/dL (8.7-10.4); Hematocrit 30.2 % (36.0-46.0); Mean Corpuscular Volume 72.0 fL (80.0-100.0)
[2025-02-10 07:32] LABS: Carbon Dioxide 31 mmol/L (20-31); Potassium 3.1 mmol/L (3.5-5.1)
[2025-02-10 07:35] LABS: BUN/Creatinine Ratio 12.8 (10.0-20.0); Blood Urea Nitrogen 12 mg/dL (9-23); Glucose 103 mg/dL (74-106)
--- NOTE | 2025-02-10 10:12 | DVHINCON2 ---
Date of service: Feb 10, 2025 Family History: Family history: Cardiovascular disease G8 MOTHER G8 FATHER Family history: Depression (situation) G8 MOTHER Allergies: Coded Allergies: NO KNOWN ALLERGIES (Unverified , 08/19/17) Home Meds Active Scripts Prednisone (Prednisone) 10 Mg Tab, 10 MG PO BID for 5 Days, #10 TAB 0 Refills Prov:NELY CARABALLO 06/29/24 Amoxicillin & Pot Clavulanate (Amoxicillin/Potassium Cla) 875 Mg Tab, 1 TAB PO BID for 7 Days, #14 TAB 0 Refills Prov:NELY CARABALLO 06/29/24 Metoprolol Tartrate (Metoprolol Tartrate) 25 Mg Tab, 12.5 MG PO BID for 30 Days Prov:DOMINIQUE LEE MD 03/27/15 Levofloxacin (Levaquin) 500 Mg Tab, 500 MG PO DAILY for 3 Days Prov:DOMINIQUE LEE MD 03/27/15 Current Medications Current Medications Medications (Trade) Dose Ordered Sig/Lianet Route PRN Reason Start Time Stop Time Status Last Admin Vancomycin HCl 150 ml @ 150 mls/hr Q18H IV 02/09/25 21:00 02/09/25 23:20 Piperacillin Sod/ Tazobactam Sod 100 ml @ 25 mls/hr Q8HR IV 02/09/25 16:00 02/10/25 06:27 Hydralazine HCl (Apresoline Injection) 10 mg Q6HP PRN IV SBP>160 02/09/25 16:15 02/09/25 16:30 Lorazepam (Ativan Tablet) 1 mg Q6HP PRN PO ANXIETY 02/09/25 18:45 02/10/25 03:22 Vital Signs Vital Signs Date Time Temp Pulse Resp B/P (MAP) Pulse Ox O2 Delivery O2 Flow Rate FiO2 02/10/25 09:54 165/82 02/10/25 09:53 82 02/10/25 09:46 98.1 20 94 98.1 02/10/25 07:29 Nasal Cannula 6.0 02/10/25 07:29 44 Labs/Diagnostic Data Labs Test 02/10/25 06:31 02/10/25 06:05 02/09/25 09:30 02/09/25 03:33 Range/Units POC Glucose 104 70-106 mg/dl White Blood Count 11.6 H 4.4-10.8 10^3/uL Red Blood Count 4.20 4.0-5.20 10^6/uL Hemoglobin 9.3 L 12.2-16.2 g/dL Hematocrit 30.2 L 36.0-46.0 % Mean Corpuscular Volume 72.0 L 80.0-100.0 fL Mean Corpuscular Hemoglobin 22.2 L 28.0-32.0 pg Mean Corpuscular Hemoglobin Concent 30.8 L 32.0-36.0 g/dL Red Cell Distribution Width 19.3 H 11.8-14.3 % Platelet Count 459 H 140-450 10^3/uL Mean Platelet Volume 8.6 6.9-10.8 fL Neutrophils (%) (Auto) 63.8 37.0-80.0 % Lymphocytes (%) (Auto) 25.3 10.0-50.0 % Monocytes (%) (Auto) 9.0 0.0-12.0 % Eosinophils (%) (Auto) 0.9 0.0-7.0 % Basophils (%) (Auto) 1.0 0.0-2.0 % Neutrophils # (Auto) 7.4 1.6-8.6 10 ^3/uL Lymphocytes # (Auto) 2.9 0.4-5.4 10 ^3/uL Monocytes # (Auto) 1.0 0-1.3 10 ^3/uL Eosinophils # (Auto) 0.1 0-0.8 10 ^3/uL Basophils # (Auto) 0.1 0-0.2 10 ^3/uL Nucleated Red Blood Cells 0.1 % Sodium Level 141 136-145 mmol/L Potassium Level 3.1 L 3.5-5.1 mmol/L Chloride Level 100 98-107 mmol/L Carbon Dioxide Level 31 20-31 mmol/L Anion Gap 10 5-15 Blood Urea Nitrogen 12 9-23 mg/dL Creatinine 0.94 0.550-1.02 mg/dL Glomerular Filtration Rate Calc 65 >90 mL/min BUN/Creatinine Ratio 12.8 10.0-20.0 Serum Glucose 103 74-106 mg/dL Calcium Level 8.9 8.7-10.4 mg/dL Body Fluid pH 9.0 Urine Opiates Screen Neg NEGATIVE Urine Fentanyl Screen Neg NEGATIVE Urine Barbiturates Screen Neg NEGATIVE Urine Phencyclidine Screen Neg NEGATIVE Urine Amphetamines Screen Pos NEGATIVE Urine Benzodiazepines Screen Neg NEGATIVE Urine Cocaine Screen Neg NEGATIVE Urine Cannabinoids Screen Neg NEGATIVE Test 02/08/25 23:38 02/08/25 22:50 02/08/25 22:00 02/08/25 20:52 Range/Units Lactic Acid Level 1.4 0.4-2.0 mmol/L Prothrombin Time 11.1 9.3-11.8 sec Prothrombin Time INR 1.05 0.9-1.15 Activated Partial Thromboplast Time 27.5 24.5-34.5 SEC Troponin I High Sensitivity 14 </=34 ng/L B-Type Natriuretic Peptide 558.49 0-100 pg/mL Total Bilirubin 0.2 0.2-1.0 mg/dL Aspartate Amino Transferase (AST) 41 H 13-40 U/L Alanine Aminotransferase (ALT) 19 7-40 U/L Alkaline Phosphatase 204 H 46-116 U/L Total Protein 6.8 5.7-8.2 g/dL Albumin 3.8 3.2-4.8 g/dL Microbiology Date/Time Source Procedure Growth Status 02/08/25 23:38 Blood Blood Culture - Preliminary NO GROWTH AFTER 24 HOURS OF INCUBATION. 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 \-- Elevated white count \-- Diabetes mellitus type 2 \-- Hypertension \-- Epilepsy \-- Coronary artery disease (s/p CABG 11/17/2024) \-- Pacemaker in place (9 years ago) \-- Chronic obstructive pulmonary disease (COPD) on 4L nasal cannula \-- History of methamphetamine abuse Assessment: This is a 66-year-old female with a history of CAD (status post CABG 11/17/2024), DM2, hypertension, epilepsy, COPD (on supplemental O2), and MRSE sternal infection status post surgical debridement and placement of wound VAC, presenting for management of ongoing sternal osteomyelitis and completion of antibiotic therapy. Patient previously left AMA after her surgical hospitalization. TG was isolated from sternal wound cultures post debridement (12/07/2024). She returned for follow up, and her sternotomy wound currently appears clean, dry, and intact. Ongoing drainage was reported during follow-up with plastic surgery, wi th repeated cultures showing no growth to date. She continues to have an elevated white count. She is amenable [facility] for ongoing IV antibiotics and wound care. Plan includes completion of 6 weeks of intravenous vancomycin for TG sternal infection, with possible transition to oral doxycycline and rifampin upon discharge. Serial markers (sed rate, CRP) for monitoring resolution of infection. Consider wound VAC placement per general surgery/plastics. Patient to follow up with surgeons (cardiothoracic and plastics) and infectious diseases upon completion of antibiotics. Continue to monitor for symptoms or signs of methamphetamine withdrawal. Plan: \-- Continue intravenous vancomycin + oral rifampin to complete 6 weeks; maintain trough 15-20 mcg/mL for sternal osteomyelitis. \-- Consider transition to oral doxycycline and rifampin (rifampin 300 mg PO bid) at discharge per ID recommendations. \-- Monitor weekly ESR, CRP for infection trend. \-- Ongoing wound care; general surgery/plastics to determine wound VAC placement. \-- Monitor for methamphetamine withdrawal. \-- Arrange SNF transfer for continued wound management and IV antibiotics. \-- Outpatient follow-up with cardiothoracic surgery, plastic surgery, and infectious diseases. Isolation Precautions: Standard. Assessment and plan discussed with the patient as detailed above. Plan is subject to change pending new information or diagnostic results. Updates may be added as an addendum to this note. Thank you for the consult. Infectious Diseases will continue to follow. Rell Renae M.D. [facility] Ph: ? Teams text: [email or web address] Electronically signed by: Rell Renae MD, 02/10/2025 \ History: The patient's chart, outside records, and recent encounter history were reviewed in detail. Patient was seen and examined personally. History obtained from the patient and corroborated with chart. 66-year-old female with a complex medical history described above with recent MRSE sternal infection and ongoing management needs. Review of Systems: A complete 10-system review of systems was obtained and is negative except as noted in the HPI or here. -CONSTITUTIONAL: Denies weight loss or fever. -HEENT: Denies changes in vision or hearing. -RESPIRATORY: Denies new shortness of breath, cough, or hemoptysis beyond established dyspnea on exertion. -CARDIOVASCULAR: Denies chest pain or palpitations. -GASTROINTESTINAL: Denies abdominal pain, nausea, vomiting, or diarrhea. -GENITOURINARY: Denies dysuria or urinary frequency. -MUSCULOSKELETAL: Denies myalgias or joint pain. -SKIN: Denies rash or pruritus. -NEUROLOGICAL: Denies headache, syncope, or focal weakness. -PSYCHIATRIC: Denies recent changes in mood, anxiety, or depression. Past Medical History: Coronary artery disease, status post CABG 11/17/2024 Sternal osteomyelitis/post-mediastinitis (post-surgical) Diabetes mellitus type 2 Hypertension Epilepsy COPD History of methamphetamine abuse Past Surgical History: CABG (11/17/2024) Surgical sternal debridement, wound VAC and chest tube placement (November 2024) Pacemaker placement (9 years ago) Home Medications: Not explicitly detailed in this transcript. (If medication data appears in a different source, please cite here. Otherwise: Home medication list not provided in transcript.) Allergies: Allergies not specified in transcript. Family History: Specific family history not discussed in transcript. Social History: -Tobacco: Positive history (active user) -Alcohol: Not discussed -Illicit Drug Use: Methamphetamine abuse (ongoing/former) -Living Situation: Not specified -Sexual Activity: Not discussed Objective: Vital Signs on Admission: -Temp: 97F -BP: 143/106 mmHg -Pulse: 87 bpm -Respiratory rate: 30/min -SpO2: 94% on 4L nasal cannula Most Recent: -BP: 165/80 mmHg -Temp: 98.1F -O2: 97% on 6L nasal cannula Admission Weight: Not provided in transcript. BMI: Not provided in transcript. Physical Exam: General: NAD Neck: Supple. No masses. HEENT: PERRL. Normal lids and conjunctiva. Moist mucous membranes. Oropharynx without lesions, exudates or excessive erythema. Normal appearance of the external aspects of the nose and ears. Heart: Regular rhythm, normal rate. No murmur. No lower extremity edema. Lungs: Normal respiratory effort. Crackles bilaterally. Abdomen: Soft. Non-tender. Non-distended. No masses or abdominal hernia. Msk: No digital cyanosis. Normal strength and tone in all 4 limbs Skin: Warm and dry, no rashes. Healing sternotomy scar without erythema. Neuro: Alert. No facial droop or slurred speech. Extra-ocular movements intact. Sensation intact to soft touch in all 4 limbs. Psych: Appropriate mood. Full affect. Oriented to person, place, time, and situation. Lines: Active Lines: Not specified in transcript. Diagnostic Studies: Available diagnostic studies reviewed personally. Significant findings referenced in Assessment and Plan as well as below. Pertinent Imaging: -CT chest: Mild bilateral pleural effusions with adjacent opacity, possible atelectasis; cannot exclude inflammatory/infectious process. 15mm left upper lobe nodule (suboptimally assessed). -Chest X-ray: Cardiomegaly with findings of congestive heart failure, small right and moderate left-sided pleural effusions. -Thoracentesis (right): 0.8L serous fluid withdrawn; pleural fluid analysis pending; pH 9.0. Lab Results: -Leukocytosis: WBC 14.1 -Hemoglobin: 9.9 -Platelets: 514 -Sodium: 141 -BUN: 12 -Creatinine: 0.94 -Urine tox: Positive amphetamines -Blood cultures: No growth to date Today's encounter date: 02/10/2025 Patient Name: [facility] Provider: Rell Renae \ Plan discussed with: Patient RELL RENAE MD Feb 10, 2025 10:12
--- NOTE | 2025-02-10 11:44 | DVHPN2 ---
Progress Note - Dictate Date Seen: Feb 10, 2025 Medical Necessity Reason Pt with a Central, PICC or Fol: No Subjective Patient was seen and evaluated in follow up. Patient is on 5 LPM NC. WBC 11.6, HGB 9.3, HCT 30.2, K 3.1. Echocardiogram is ordered to evaluate cardiac function. Telemetry reviewed. vital signs Vital Sign Date Time Temp Pulse Resp B/P (MAP) Pulse Ox O2 Delivery O2 Flow Rate FiO2 02/10/25 09:54 165/82 02/10/25 09:53 82 02/10/25 09:46 98.1 20 94 98.1 02/10/25 08:18 Nasal Cannula* 5 40 Total Intake and Output 02/09/25 02/09/25 02/10/25 15:00 23:00 07:00 Intake Total 320 ml Balance 320 ml medications Current Medications Medications Dose Ordered Sig/Lianet Route Start Time Stop Time Status Last Admin Dose Admin Ondansetron HCl 4 mg Q4HPRN PRN IV 02/09/25 01:00 Furosemide 40 mg BIDD IV 02/09/25 06:00 02/10/25 06:27 40 MG Albuterol 2.5 mg Q4HPRN PRN NEB 02/09/25 01:00 02/09/25 18:59 2.5 MG Levothyroxine Sodium 25 mcg QAM@0600 PO 02/09/25 06:00 02/10/25 06:28 25 MCG Diagnostic Test (Pha) 1 strip ACHS 02/09/25 07:00 02/10/25 06:32 1 STRIP Insulin Human Regular ACHS SC 02/09/25 07:00 02/09/25 06:42 2 UNITS Dextrose 50 ml UD PRN IV 02/09/25 01:00 Morphine Sulfate 2 mg Q30M PRN IV 02/09/25 02:45 02/09/25 19:48 2 MG Metoprolol Tartrate 25 mg BID PO 02/09/25 10:00 02/10/25 09:53 25 MG Lisinopril 20 mg DAILY PO 02/09/25 10:00 02/10/25 09:54 20 MG Enoxaparin Sodium 40 mg DAILY SC 02/09/25 10:00 02/10/25 09:56 40 MG Vancomycin HCl 0 ml @ 0 mls/hr UD IV 02/09/25 03:00 Vancomycin HCl 150 ml @ 150 mls/hr Q18H IV 02/09/25 21:00 02/09/25 23:20 150 MLS/HR Piperacillin Sod/ Tazobactam Sod 100 ml @ 25 mls/hr Q8HR IV 02/09/25 16:00 02/10/25 06:27 25 MLS/HR Hydralazine HCl 10 mg Q6HP PRN IV 02/09/25 16:15 02/09/25 16:30 10 MG Lorazepam 1 mg Q6HP PRN PO 02/09/25 18:45 02/10/25 03:22 1 MG objective GENERAL: Alert and oriented x 3. No acute distress. EYES: PERRL, EOMI. Anicteric. HENT: Moist mucous membranes. LUNGS: Clear to auscultation bilaterally. CARDIOVASCULAR: Regular rate and rhythm. ABDOMEN: Soft, nontender and nondistended. EXTREMITIES: No edema. NEUROLOGIC: No focal neurological deficits. SKIN: Warm, dry. laboratory and microbiology Laboratory Tests 02/10/25 06:05 Test 02/10/25 06:05 Range/Units Serum Glucose 103 74-106 mg/dL Problem List Acute congestive heart failure exacerbation. Bilateral moderate-sized pleural effusions. 15 mm left upper lobe nodule. History of noncompliance. Coronary artery disease. Chronic respiratory failure. Diabetes mellitus type 2. Essential hypertension. Assessment/Plan Continued all current supportive medical care. Echocardiogram. DVT prophylactics. Diuretics with Lasix. Lisinopril. Metoprolol. Morphine for pain management. IV antibiotics as ordered. Additional plan as per the hospital course. Plan discussed with: Patient JAIRO CHRISTOPHER MD Feb 10, 2025 11:29
[2025-02-10 13:07] LABS: Glucose, Body Fluid 111.0 mg/dL (.); LD, Body Fluid 130.0 IU/L (.)
--- NOTE | 2025-02-10 14:39 | DVHDS2 ---
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 At that time she had pleural effusions which were drained and had a debridement all done a [facility] and she was discharged to SNF thereafter for IV Abx with vancomycin x 6 week for sternal wound infection in which wound cultures grew MRSA. She apparently signed out of SNF AMA and never completed the course of recommended IV ABx, She returns to ER now here at [facility] complaining of SOB and was noted to have B/L pleural effusions R >L and she underwent thoracentesis of R lung with 800 ml out by IR. She is normally on 5L o2 at baseline and is on the same here at [facility]. She was admitted to the hospital and started on iv vanco/zosyn and seen by cardiology, She had a echo done which showed 60% EF with mod to severe PHTN RVSP 55 and tricuspid regurgitation. She was cleared by cardiology. She was also seen by ID given her hx of MRSA sternal wound infection and recommended for PICC line placement and IV Vancomycin x 6 weeks at SNF. I spoke to the patient and and advised them of the need to complete the IV Abx with vanco x 6 weeks given her wound culture from the sternum grew MRSA. Patient and family agreed to stay this time at SNF for completion of IV Abx as recommended by ID and thus will be transferred to SNF today via [facility]. [facility] to arrange for SNF bed and transport and all paperwork signed and in chart. Treatment Plan Discharge Condition of Discharge Good Disposition [facility] Facility Discharge Instructions Diet: Cardiac 2g Na,low cholest Diet comment: dc to SNF today Activity: No Restrictions, As Tolerated Medications: see med sheet Follow Up Care Follow Up/Referral: pcp Discharge Statement: "Patient was advised to return to the ER or call 911 if any headaches, dizziness, shortness of breath, chest pain, abdominal pain, bleeding, fevers, or worsening of medical condition. Patient was counseled about treatment plan, medications, possible side effects, patientverbalized understanding. All questions were answered to the best of my ability. This discharge took greater then 30 minutes in planning, reviewing documentation, counseling the patient, and discussing with other team members." SUYAPA HERRERA MD Feb 10, 2025 14:39
--- NOTE | 2025-02-10 17:47 | DVHSR ---
APPROVED REPORT EXAM: Two-dimensional and M-mode echocardiogram with Doppler and color Doppler. Blood Pressure: 159/103 mmHg INDICATION chf Surgery/Intervention Pacemaker: [employer] Height: 5'1, Weight: 148 DIMENSIONS LVDd3.6 (3.8-5.7cm)LA (2D)4.3 (1.9-4.0cm)Aortic Root3.8 (2.0-3.7cm) LVDs3.0 (2.5-4.0cm)LA (MM) (1.9-4.0cm)Aortic Cusp Exc1.5 (1.5-2.0cm) EF (%) 45.0 (55-70%)Rt. Atrium4.3 (1.9-4.0cm)Asc. Aorta3.6 cm IVSd1.2 (0.7-1.1cm)RV (D) (1.8-2.4cm) PWd0.9 (0.7-1.1cm) Mitral Valve MitralMitral Stenosis E wave0.98m/sMV Mean GR.mmHg A wave1.17m/sMV Peak GR.105mmHg E/A ratio0.82D MVAcm2 DECEL [id number] 1/2 Timems Aortic Valve Aortic ValveAortic Stenosis V11.05m/Jennie Mean GR.4mmHg V21.47m/Jennie Peak GR.9mmHg LVOT Diameter2.3 (1.8-2.4cm)Doppler AVA2.97cm2 Pulmonic Valve V20.98m/s Tricuspid Valve TR Velocity2.94m/s [id number] Other Information Quality : TDSRhythm : Technically limited study due to PT Sitting up all the way very SOB Conclusion 1. MILD LVH AND MILD LV DIASTOLIC DYSFUNCTION 2. DYSKINESIS OF IVS 3. LV EF IS IN RANGE OF 55% 4. MODERATELY DILATED RV AND RA 5. MODERATELY SEVERE PULMONARY HYPERTENSION 6. CALCIFIED MITRAL LEAFLETS 7. MODERATE DEGREE MR AND TR 8. NO EFFUSION
[2025-02-10] MEDS: LIDOCAINE 1% (LOCAL ANESTH.) PF 5ml SDV ID ONE (18:00)
[2025-02-10] MEDS ORDERED: rifAMPin 300 MG CAP PO SCH (22:00)
[2025-02-10] MEDS ORDERED: SODIUM CHLOR 0.9% PF (SALINE LOCK) 10ML VIAL/SYR IV SCH (22:00)
== END 2025-02-10 19:09 ==
LOC: ER 19:45 → OVERFLOW 02-09 02:37 → TELE-CENTR 02-09 21:00
PROVIDERS: ADMIT Hospitalist; ATTEND Hospitalist
DX: L08.9 Local infection of the skin and subcutaneous tissue, unspecified (principal); J90 Pleural effusion, not elsewhere classified; I11.0 Hypertensive heart disease with heart failure; I50.33 Acute on chronic diastolic (congestive) heart failure; E11.9 Type 2 diabetes mellitus without complications; I25.10 Atherosclerotic heart disease of native coronary artery without angina pectoris; N17.9 Acute kidney failure, unspecified; D64.9 Anemia, unspecified; J85.3 Abscess of mediastinum; E78.5 Hyperlipidemia, unspecified; I07.1 Rheumatic tricuspid insufficiency; M86.9 Osteomyelitis, unspecified; I48.91 Unspecified atrial fibrillation; J44.9 Chronic obstructive pulmonary disease, unspecified; J96.10 Chronic respiratory failure, unspecified whether with hypoxia or hypercapnia; F15.10 Other stimulant abuse, uncomplicated; G40.909 Epilepsy, unspecified, not intractable, without status epilepticus; F17.210 Nicotine dependence, cigarettes, uncomplicated; J18.9 Pneumonia, unspecified organism; R74.8 Abnormal levels of other serum enzymes; Z91.199 Patient's noncompliance with other medical treatment and regimen due to unspecified reason; Z95.0 Presence of cardiac pacemaker; Z95.1 Presence of aortocoronary bypass graft; Z79.899 Other long term (current) drug therapy; Z86.2 Personal history of diseases of the blood and blood-forming organs and certain disorders involving the immune mechanism
CPT/HCPCS: 36415; 36569; 71045; 71250; 76604; 76942; 80048; 80053; 80307; 82962; 83605; 83880; 83986; 84484; 85025; 85610; 85652; 85730; 86141; 87040; 87070; 87205; 88104; 88305; 88342; 93005; 93306; 94640; 96365; 96366; 96367; 96368; 96372; 96375; 96376; 99291; C1729; C1751; G0378; J0360; J0456; J0696; J1650; J1815; J1938; J2270; J2543; J3373; J3375; J7050; 76937; J7042

== ENCOUNTER 2025-05-22 13:03 | Inpatient (IN) | payer MEDICARE, MEDICAID ==
[~2025-05-22] VITALS: Ht 157.5 cm; Wt 56.5 kg
[~2025-05-22 13:03] MED LIST changes: -AMOX875T4 PO; -LEVO500T31 PO; -PRED10TA PO
--- NOTE | 2025-05-22 13:52 | ED.PDOC ---
History of present illness HPI Comments 69-year-old female, presents to the emergency department with a chief complaint of hyperglycemia. Patient states she had labs drawn x1week ago and received a call today (05/22/25) from her primary care provider relaying her to the emergency department for a further evaluation due to a high blood sugar reading. Patient reports, to have associated symptoms of excessive thirst, excessive urination, and vision changes. Upon arrival to the ED, patient's blood sugar read high on glucometer. Patient endorses, being noncompliant with insulin usage x1 month. Patient denies changes in speech, dizziness, nausea, vomiting, or confusion. No other symptoms or modifying factors are present at this time. Chief Complaint: Hyperglycemia Time Seen by MD: 13:45 Primary Care Provider: none History of present illness: Nurses Notes, Medications, Allergies Allergies: Coded Allergies: NO KNOWN ALLERGIES (Unverified , 08/19/17) Home Meds Active Scripts Metoprolol Tartrate (Metoprolol Tartrate) 25 Mg Tab, 12.5 MG PO BID for 30 Days Prov:DOMINIQUE LEE MD 03/27/15 Information Source: Patient Mode of Arrival: Ambulatory Timing: Weeks Duration: Since onset Prehospital treatment: None [place]: None History of: Diabetes, Insulin use Associated signs and symptoms: Blurred Vision Past Medical History PAST MEDICAL HISTORY: AFIB, CAD, COPD, DM, Gallstones, HTN, Seizures Surgical History: CABG, Pacemaker 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: No Pertinent 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 Family History Family History: No family hx of Cancer, No family hx of DM Family History (Other): epilepsy Social History Smoker: Cigarettes Alcohol: Denies ETOH Use Drugs: Denies Drug Use Lives In: Home Constitutional: denies: chills, diaphoresis, fatigue, fever, malaise, sweats, weakness, others EENTM: reports: blurred vision; denies: double vision, ear bleeding, ear discharge, ear drainage, ear pain, ear ringing, eye pain, eye redness, hearing loss, mouth pain, mouth swelling, nasal discharge, nose bleeding, nose congestion, nose pain, photophobia, tearing, throat pain, throat swelling, voice changes, others Respiratory: denies: cough, hemoptysis, orthopnea, SOB at rest, shortness of breath, SOB with excertion, stridor, wheezing, others Cardiovascular: denies: chest pain, dizzy spells, diaphoresis, Dyspnea on exertion, edema, irregular heart beat, left arm pain, lightheadedness, palpitations, PND, syncope, others Gastrointestinal: denies: abdomen distended, abdominal pain, blood streaked bowels, constipated, diarrhea, dysphagia, difficulty swallowing, hematemesis, melena, nausea, poor appetite, poor fluid intake, rectal bleeding, rectal pain, vomiting, others Genitourinary: denies: abnormal vagina bleeding, burning, dyspareunia, dysuria, flank pain, frequency, hematuria, incontinence, pain, , vagina discharge, urgency, others Neurological: denies: dizziness, fainting, headache, left sided numbness, left sided weakness, numbness, paresthesia, pre-existing deficit, right sided numbness, right sided weakness, seizure, speech problems, tingling, tremors, weakness, others Musculoskeletal: denies: back pain, gout, joint pain, joint swelling, muscle pain, muscle stiffness, neck pain, others Integumetry: denies: bruises, change in color, change in hair/nails, dryness, laceration, lesions, lumps, rash, wounds, others Allergic/Immunocompromised: denies: Difficulty Healing, Frequent Infections, Hives, Itching, others Hematologic/Lymphatic: denies: anemia, blood clots, easy bleeding, easy bruising, swollen glands, others Endocrine: reports: excessive thirst, excessive urination; denies: excessive hunger, excessive sweating, flushing, intolerance to cold, intolerance to heat, unexplained weight gain, unexplained weight loss, others Psychiatric: denies: anxiety, bipolar disorder, depression, hopeless, panic disorder, schizophrenia, sleepless, suicidal, others All Other Systems: Reviewed and Negative Physical Exam General Appearance: Moderate Distress HEENT: Normal ENT Inspection, Pharynx Normal, TMs Normal Neck: Full Range of Motion, Non-Tender, Normal, Normal Inspection Respiratory: Chest Non-Tender, Lungs Clear, No Accessory Muscle Use, No Respiratory Distress, Normal Breath Sounds Cardiovascular: No Edema, No JVD, No Murmur, No Gallop, Normal Peripheral Pulses, Regular Rate/Rhythm Breast Exam: Deferred Gastrointestinal: No Organomegaly, Non Tender, No Pulsatile Mass, Normal Bowel Sounds, Soft Genitalia: Deferred Pelvic: Deferred Rectal: Deferred Extremities: No calf tenderness, Normal capillary refill, No pedal edema Musculoskeletal : Apperance: Normal Neurologic: furnace erector II-XII nml as Tested, Motor Weakness, Normal Affect, Normal Mood, No Sensory Deficits Cerebellar Function: Normal Reflexes: Normal Skin: Dry, Normal Color, Warm Lymphatic: No Adenopathy Was a procedure done? Was a procedure done?: No Differential Diagnosis (DM) Differential Diagnosis: Dehydration, DKA, Hyperglycemia X-Ray, Labs, Meds, VS Vital Signs Date Time Temp Pulse Resp B/P (MAP) Pulse Ox O2 Delivery O2 Flow Rate FiO2 05/22/25 14:58 98.9 91 18 174/98 (123) 97 98.9 05/22/25 13:06 97.9 92 19 167/101 94 97.9 Lab Test 05/22/25 14:26 Range/Units White Blood Count 7.6 4.4-10.8 10^3/uL Red Blood Count 4.89 4.0-5.20 10^6/uL Hemoglobin 13.1 12.2-16.2 g/dL Hematocrit 39.7 36.0-46.0 % Mean Corpuscular Volume 81.1 80.0-100.0 fL Mean Corpuscular Hemoglobin 26.7 L 28.0-32.0 pg Mean Corpuscular Hemoglobin Concent 32.9 32.0-36.0 g/dL Red Cell Distribution Width 24.3 H 11.8-14.3 % Platelet Count 215 140-450 10^3/uL Mean Platelet Volume 10.3 6.9-10.8 fL Neutrophils (%) (Auto) 62.2 37.0-80.0 % Lymphocytes (%) (Auto) 30.8 10.0-50.0 % Monocytes (%) (Auto) 4.5 0.0-12.0 % Eosinophils (%) (Auto) 1.9 0.0-7.0 % Basophils (%) (Auto) 0.6 0.0-2.0 % Neutrophils # (Auto) 4.7 1.6-8.6 10 ^3/uL Lymphocytes # (Auto) 2.3 0.4-5.4 10 ^3/uL Monocytes # (Auto) 0.3 0-1.3 10 ^3/uL Eosinophils # (Auto) 0.1 0-0.8 10 ^3/uL Basophils # (Auto) 0 0-0.2 10 ^3/uL Nucleated Red Blood Cells 0.2 % Sodium Level 130 L 136-145 mmol/L Potassium Level 4.3 3.5-5.1 mmol/L Chloride Level 100 98-107 mmol/L Carbon Dioxide Level 25 20-31 mmol/L Anion Gap 5 5-15 Blood Urea Nitrogen 6 L 9-23 mg/dL Creatinine 1.23 H 0.550-1.02 mg/dL Glomerular Filtration Rate Calc 47 >90 mL/min BUN/Creatinine Ratio 4.9 L 10.0-20.0 Serum Glucose 691 *H 74-106 mg/dL Hemoglobin A1c > 14.0 H <5.7 % A1C Serum Osmolality 321 H 278-298 mOsm/kg Calcium Level 8.6 L 8.7-10.4 mg/dL Total Bilirubin Pending Direct Bilirubin Pending Aspartate Amino Transferase (AST) Pending Alanine Aminotransferase (ALT) Pending Alkaline Phosphatase Pending B-Type Natriuretic Peptide 88.40 0-100 pg/mL Total Protein Pending Albumin Pending Triglycerides Level 121 < 150 mg/dL Cholesterol Level 106 < 200 mg/dL LDL Cholesterol 48 < 100 mg/dL HDL Cholesterol 37 L 40-59 mg/dL Beta-Hydroxybutyric Acid 0.203 < 0.4 mmol/L Thyroid Stimulating Hormone (TSH) Pending [place] [id number] Ph: [phone] DIAGNOSTIC IMAGING Diagnostic Imaging Report : [id number] Signed PATIENT: ROMEL ARAUJO ACCT: [id number] UNIT: [id number] : 1955 LOC: ER ROOM / BED: / AGE / SEX: 69 / F ADM STATUS: REG ER SERVICE 1351 ORDERING PHYSICIAN: BE FARRIS MD PROCEDURE(s): CXR2 - CHEST TWO VIEWS ROUTINE REASON: weakness ORDER NUMBER(s): [id number], ACCESSION NUMBER(s): [id number] XY CHEST TWO VIEWS ROUTINE CLINICAL HISTORY: weakness COMPARISON: XR CHEST 2 VIEWS on DOS: 08/28/23, XR CHEST 2 VIEWS on DOS: 01/31/23, XR CHEST 2 VIEWS on DOS: 09/10/18 TECHNIQUE: Frontal and lateral view of the chest was obtained FINDINGS: Lines and Tubes: Bipolar pacemaker in place with pulse generator over the left chest. Lungs: No focal consolidation. Large hiatal hernia in the retrocardiac area containing air-fluid level. Pleura: No effusion. No pneumothorax. Cardiomediastinal contours: Unremarkable Bones: No acute osseous abnormality. IMPRESSION: 1. Large hiatal hernia with air-fluid level in the retrocardiac area consistent with previous chest film of 02/09/2025. ATED BY: PEDRITO ALEXANDER Jr., DO DICTATED DATE/TIME: 05/22/251428 SIGNED BY: PEDRITO ALEXANDER Jr., SIGNED DATE/TIME: 05/22/251428 CC: IV Hep-Lock was established. The patient is being admitted with intractable abdominal pain The patient's CBC is within normal limits The chemistry panel came back with a blood sugar of 691 The CO2 level and the anion gap are within normal limits. The patient is being admitted at this time.. Images Reviewed?: Images reviewed and evaluated by me Time of 1ST Reevaluation: 14:15 Reevaluation 1ST: Unchanged Patient Education/Counseling: Diagnosis, Treatment, Prognosis Family Education/Counseling: Diagnosis, Treatment, Prognosis SEPSIS Sepsis Screen Date sepsis recognized/suspect: May 22, 2025 Time Sepsis recognized/suspect: 1306 Recent Procedure: No On Antibiotic Therapy: No Respiratory Rate >20: No Heart Rate >90: Yes Temp<36 C (96.8 F) or >38.3 C: No SBP <90 or MAP <65 mmHG: No New Acute Mental Status Change: No Is the patient on CPAP, BIPAP,: No Physician Orders Urinalysis (05/22/25 13:51) Chest Two Views Routine (05/22/25 13:51) Heplock Iv (05/22/25 13:51) Actuarial Trainee (05/22/25 13:51) Blood Pressure (05/22/25 13:51) Pulse Oximetry (05/22/25 13:51) Vital Signs Date Time Temp Pulse Resp B/P (MAP) Pulse Ox O2 Delivery O2 Flow Rate FiO2 05/22/25 14:58 98.9 91 18 174/98 (123) 97 98.9 05/22/25 13:06 97.9 92 19 167/101 94 97.9 Laboratory Tests Test 05/22/25 14:26 White Blood Count 7.6 10^3/uL (4.4-10.8) Departure 1 Departure Time of Disposition: 16:59 Impression: Primary Impression: Accelerated hypertension Additional Impression: Uncontrolled diabetes mellitus Qualified Codes: E13.65 - Other specified diabetes mellitus with hyperglycemia Disposition: 09 ADMITTED INPATIENT Admit to: Tele Condition: Fair Critical Care Note Critical Care Time?: Yes (45 min-critical care time only) Stability Stability form required: Yes Unstable for transfer: Telemetry monitoring (Telemetry monitoring required), ED Physician Assesment (Clinical assesment) Heart Score Heart Score: Heart Score Response (Comments) Value History N/A 0 EKG N/A 0 Age N/A 0 Risk Factors N/A 0 Troponin N/A 0 Total 0 I personally scribed for BE FARRIS MD ([email or web address]) on 05/22/25 at 13:52. Electronically submitted by Jie Clemens ([email or web address]). I personally scribed for BE FARRIS MD ([email or web address]) on 05/22/25 at 14:36. Electronically submitted by Akilah Miller ([email or web address]). I personally scribed for BE FARRIS MD ([email or web address]) on 05/22/25 at 15:15. Electronically submitted by Jie Clemens [email or web address]). BE FARRIS MD May 22, 2025 13:52
[2025-05-22] MEDS ORDERED: SODIUM CHLORIDE 0.9% 1,000 ML IV ONE (14:00)
[2025-05-22] MEDS ORDERED: InsuLIN REG 1unit/0.01ml Soln (100units/ml) IV ONE (14:00)
--- NOTE | 2025-05-22 14:31 | DVH ---
XY CHEST TWO VIEWS ROUTINE CLINICAL HISTORY: weakness COMPARISON: XR CHEST 2 VIEWS on DOS: 08/28/23, XR CHEST 2 VIEWS on DOS: 01/31/23, XR CHEST 2 VIEWS on DOS: 09/10/18 TECHNIQUE: Frontal and lateral view of the chest was obtained FINDINGS: Lines and Tubes: Bipolar pacemaker in place with pulse generator over the left chest. Lungs: No focal consolidation. Large hiatal hernia in the retrocardiac area containing air-fluid level. Pleura: No effusion. No pneumothorax. Cardiomediastinal contours: Unremarkable Bones: No acute osseous abnormality. IMPRESSION: 1. Large hiatal hernia with air-fluid level in the retrocardiac area consistent with previous chest film of 02/09/2025.
[2025-05-22 14:58] VITALS: BP 174/98; PULSE 91; RESP 18; TEMP 98.9; O2SAT 97
[2025-05-22 14:58] LABS: Mean Corpuscular Volume 81.1 fL (80.0-100.0)
[2025-05-22 15:00] LABS: Hematocrit 39.7 % (36.0-46.0); Hemoglobin 13.1 g/dL (12.2-16.2); Mean Corpuscular Hemoglobin 26.7 pg (28.0-32.0); Nucleated Red Blood Cells % 0.2 %
[2025-05-22 15:08] LABS: Chloride 100 mmol/L (98-107); Potassium 4.3 mmol/L (3.5-5.1)
[2025-05-22 15:09] LABS: Anion Gap 5 (5-15); Carbon Dioxide 25 mmol/L (20-31)
[2025-05-22 15:14] LABS: BUN/Creatinine Ratio 4.9 (10.0-20.0)
[2025-05-22 15:18] LABS: Blood Urea Nitrogen 6 mg/dL (9-23); Calcium 8.6 mg/dL (8.7-10.4); Sodium 130 mmol/L (136-145)
[2025-05-22 15:19] LABS: Glucose 691 mg/dL (74-106)
[2025-05-22] MEDS ORDERED: ONDANSETRON HCL 4 MG/2 ML VIAL IV PRN (15:45)
[2025-05-22] MEDS ORDERED: ACETAMINOPHEN 325 MG TAB PO PRN (15:45)
[2025-05-22] MEDS ORDERED: InsuLIN REG 1unit/0.01ml Soln (100units/ml) SC SCH (16:00)
[2025-05-22] MEDS ORDERED: INSULIN LANTUS (GLARGINE) 1 /0.01ml (100units/ml) SC SCH (16:00)
[2025-05-22] MEDS ORDERED: DEXTROSE (50%) 50ML SYRG IV PRN (16:00)
[2025-05-22] MEDS ORDERED: IPRATROPIUM BROM 0.5 MG/2.5ML INH SOL NEB PRN (16:00)
[2025-05-22] MEDS ORDERED: ACCU-CHEK COMFORT CURVE STRIP VI SCH (16:00)
--- NOTE | 2025-05-22 16:09 | DVHHPRES ---
History of Present Illness Resident Creating Document: CANOHARI RESIDENT History of Present Illness Patient is a 69-year-old female with past medical history of congestive heart failure, SVTs, COPD, type 2 diabetes, epilepsy but seizure-free for 10 years not on any home medication, essential hypertension, dyslipidemia, chronic respiratory failure currently not on home O2, noncompliance, coronary artery disease s/p CABG in November 2024 who comes in due to high blood glucose levels. According to the patient, she was called by her PCP who told the patient to come to the ER as she has very high blood glucose levels. Patient denies any symptoms, however, does not note seeing rainbow colored dots in her vision. 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 On review of systems patient is complaining of chills, dry cough, shortness of breath on exertion and urinary frequency. Blood glucose in the hospital was noted to be 691, beta hydroxybutyric acid 0.203, serum bicarbonate 25 and anion gap of 5. Past Medical History congestive heart failure, SVTs, COPD, type 2 diabetes, epilepsy but seizure- free for 10 years not on any home medication, essential hypertension, dyslipidemia, chronic respiratory failure currently not on home O2, noncompliance, coronary artery disease s/p CABG in November 2024 Past Surgical History CABG Past Social History Smoking: Half a pack per day for 50 years Alcohol: Denies Drugs: Uses methamphetamine daily for the past 30 years Lives in [place] with boyfriend Review of Systems Constitutional: Yes: Chills; No: Fever, Sweats, Weakness, Malaise, Other Eyes: Vision change; No: Pain, Conjunctivae inflammation, Eyelid inflammation, Other, Redness ENT: No: Ear pain, Ear discharge, Nose pain, Nose discharge, Nose congestion, Mouth pain, Mouth swelling, Throat pain, Throat swelling, Other Respiratory: Cough, Dry, SOB with excertion; No: Shortness of breath, Wheezing, Hemoptysis, Pleuritic Pain, Sputum, Wheezing, Other Cardiovascular: No: Chest Pain, Palpitations, Orthopnea, Paroxysmal Noc. Dyspnea, Edema, Lt Headedness, Other Gastrointestinal: No: Nausea, Vomiting, Abdominal Pain, Diarrhea, Constipation, Melena, Hematochezia, Other Genitourinary: No Dysuria; Frequency; No Incontinence, No Hematuria, No Retention, No Other Musculoskeletal: No: other, neck pain, shoulder pain, arm pain, back pain, hand pain, leg pain, foot pain Skin: No: Rash, Lesions, Jaundice, Bruising, Other Neurological: No: Weakness, Numbness, Incoordination, Change in speech, Confusion, Seizures, Other Allergies: Coded Allergies: NO KNOWN ALLERGIES (Unverified , 08/19/17) Medications Current Medications Medications Dose Ordered Sig/Lianet Route Start Time Stop Time Status Last Admin Dose Admin Acetaminophen 325 mg Q4HP PRN PO 05/22/25 15:45 Ondansetron HCl 4 mg Q4HP PRN IV 05/22/25 15:45 Pantoprazole Sodium 40 mg DAILY IV 05/23/25 10:00 Insulin Glargine 8 units HS SC 05/22/25 16:00 Diagnostic Test (Pha) 1 strip IQ4HR 05/22/25 16:00 Insulin Human Regular IQ4HR SC 05/22/25 16:00 Dextrose 50 ml UD PRN IV 05/22/25 16:00 Ipratropium [place] 0.5 mg Q4HPRN PRN NEB 05/22/25 16:00 Levalbuterol HCl 1.25 mg Q6HR NEB 05/22/25 18:00 Atorvastatin Calcium 40 mg HS PO 05/22/25 22:00 Exam Vital Signs Vital Signs Date Time Temp Pulse Resp B/P (MAP) Pulse Ox O2 Delivery O2 Flow Rate FiO2 05/22/25 14:58 98.9 91 18 174/98 (123) 97 98.9 General Appearance: Alert, Oriented X3, Cooperative, No acute distress HEENT: Atraumatic, PERRLA, Other (Dry mucous membranes, soft growth noted on left lateral scalp) Respiratory: Normal air movement, Other (Trace bilateral crackles) Cardiovascular: Regular rate Abdominal: Normal bowel sounds, Soft, No tenderness Extremities: Other (1+ lower extremity pitting edema) Neuro: Normal gait, Normal speech Psych/Mental Status: Mental status NL, Mood NL Labs/Xrays Labs Test 05/22/25 14:26 Range/Units White Blood Count 7.6 4.4-10.8 10^3/uL Red Blood Count 4.89 4.0-5.20 10^6/uL Hemoglobin 13.1 12.2-16.2 g/dL Hematocrit 39.7 36.0-46.0 % Mean Corpuscular Volume 81.1 80.0-100.0 fL Mean Corpuscular Hemoglobin 26.7 L 28.0-32.0 pg Mean Corpuscular Hemoglobin Concent 32.9 32.0-36.0 g/dL Red Cell Distribution Width 24.3 H 11.8-14.3 % Platelet Count 215 140-450 10^3/uL Mean Platelet Volume 10.3 6.9-10.8 fL Neutrophils (%) (Auto) 62.2 37.0-80.0 % Lymphocytes (%) (Auto) 30.8 10.0-50.0 % Monocytes (%) (Auto) 4.5 0.0-12.0 % Eosinophils (%) (Auto) 1.9 0.0-7.0 % Basophils (%) (Auto) 0.6 0.0-2.0 % Neutrophils # (Auto) 4.7 1.6-8.6 10 ^3/uL Lymphocytes # (Auto) 2.3 0.4-5.4 10 ^3/uL Monocytes # (Auto) 0.3 0-1.3 10 ^3/uL Eosinophils # (Auto) 0.1 0-0.8 10 ^3/uL Basophils # (Auto) 0 0-0.2 10 ^3/uL Nucleated Red Blood Cells 0.2 % Sodium Level 130 L 136-145 mmol/L Potassium Level 4.3 3.5-5.1 mmol/L Chloride Level 100 98-107 mmol/L Carbon Dioxide Level 25 20-31 mmol/L Anion Gap 5 5-15 Blood Urea Nitrogen 6 L 9-23 mg/dL Creatinine 1.23 H 0.550-1.02 mg/dL Glomerular Filtration Rate Calc 47 >90 mL/min BUN/Creatinine Ratio 4.9 L 10.0-20.0 Serum Glucose 691 *H 74-106 mg/dL Calcium Level 8.6 L 8.7-10.4 mg/dL Beta-Hydroxybutyric Acid 0.203 < 0.4 mmol/L SEPSIS Sepsis Screen Date sepsis recognized/suspect: May 22, 2025 Time Sepsis recognized/suspect: 1305 Recent Procedure: No On Antibiotic Therapy: No Respiratory Rate >20: No Heart Rate >90: Yes Temp<36 C (96.8 F) or >38.3 C: No SBP <90 or MAP <65 mmHG: No New Acute Mental Status Change: No Is the patient on CPAP, BIPAP,: No Physician Orders Urinalysis (05/22/25 13:51) Chest Two Views Routine (05/22/25 13:51) Heplock Iv (05/22/25 13:51) Luggage Attendant (05/22/25 13:51) Blood Pressure (05/22/25 13:51) Pulse Oximetry (05/22/25 13:51) Admit (05/22/25 15:40) Allergies (05/22/25 15:40) Code Status (05/22/25 15:40) Acetaminophen Tablet (Tylenol Tablet) (05/22/25 15:45) Ondansetron Hcl (Zofran) (05/22/25 15:45) Complete Blood Count (05/23/25 04:00) Comprehensive Metabolic Panel (05/23/25 04:00) Pt Request For Service (05/22/25 15:40) Echo 2d Mode Cardiac Dop (05/22/25 15:40) Condition: Unstable (05/22/25 15:40) Sequential Compression Device (05/22/25 ) Notify Md Of Changes From Base (05/22/25 15:40) Osmolality, Serum (05/22/25 15:43) B-Type Natriuretic Peptide (05/22/25 15:43) Covid19 Antigen Emili (05/22/25 ) Rapid Influenza A&B (05/22/25 15:43) Blood Culture (05/22/25 15:43) Mrsa Screen (05/22/25 15:43) Pantoprazole (Protonix) (05/23/25 10:00) Electrocardigram (05/22/25 15:43) Insulin Lantus (Glargine) (Lantus) (05/22/25 16:00) Glucose Blood (Accu-Chek Comfort Curve T (05/22/25 16:00) Insulin R (Human) (Insulin R) (05/22/25 16:00) Dextrose 50% Syringe (05/22/25 16:00) Consistent Carb(Ccho)Diabetes (05/22/25 Dinner) Provide Diabetic Education (05/22/25 15:51) *Rn Clothing Examiner Referral (05/22/25 15:51) Hepatic Panel (05/22/25 15:51) Drug Screen (05/22/25 15:51) Hemoglobin A1c (05/22/25 15:55) Lipid Panel (05/22/25 15:55) Ipratropium Medneb (Atrovent Medneb) (05/22/25 16:00) Levalbuterol Hcl (Xopenex Medneb) (05/22/25 18:00) Thyroid Stimulating Hormone (05/22/25 15:56) Atorvastatin (Lipitor) (05/22/25 22:00) Vital Signs Date Time Temp Pulse Resp B/P (MAP) Pulse Ox O2 Delivery O2 Flow Rate FiO2 05/22/25 14:58 98.9 91 18 174/98 (123) 97 98.9 05/22/25 13:06 97.9 92 19 167/101 94 97.9 Laboratory Tests Test 05/22/25 14:26 White Blood Count 7.6 10^3/uL (4.4-10.8) Assessment/Plan Assessment/Plan Type 2 diabetes, uncontrolled and insulin dependent but noncompliant - Hb A1c greater than 14 - insulin Lantus 8 units - moderate sliding scale insulin - diabetic education Acute on chronic heart failure, systolic versus diastolic - IV Lasix Left scalp hematoma - consider imaging versus outpatient follow up JENNIFER, likely hemodynamically mediated/VMN - holding fluids owing to heart failure exacerbation - monitor Methamphetamine abuse - counseled patient extensively PUD prophylaxis: protonix 40mg DVT prophylaxis: Levonox 40mg Goals of care: Full code, discussed for >16 minutes on 05/22/2025 Plan discussed with patient Plan discussed with Dr. Lozano Plan discussed with: Patient, Other (RN) My Orders Orders - HARI CANO RESIDENT Procedure Category Date Status Time Admit ADMIT 05/22/25 Transmitted 15:40 Allergies AARTI 05/22/25 In Process 15:40 Code Status CODE 05/22/25 Transmitted 15:40 Acetaminophen Tablet PHA 05/22/25 In Process (Tylenol Tablet) 15:45 Ondansetron Hcl PHA 05/22/25 In Process (Zofran) 15:45 Complete Blood Count LAB 05/23/25 Verified 04:00 Comprehensive LAB 05/23/25 Verified Metabolic Panel 04:00 Pt Request For Service PT 05/22/25 Transmitted 15:40 Echo 2d Mode Cardiac US 05/22/25 Logged DOP 15:40 Condition: Unstable AARTI 05/22/25 In Process 15:40 Sequential AARTI 05/22/25 In Process Compression Device Notify Md Of Changes AARTI 05/22/25 In Process From Base 15:40 Osmolality, Serum LAB 05/22/25 In Process 15:43 B-Type Natriuretic LAB 05/22/25 In Process Peptide 15:43 Covid19 Antigen Emili LAB 05/22/25 Logged Rapid Influenza A&B LAB 05/22/25 Logged 15:43 Blood Culture INES 05/22/25 Logged 15:43 Mrsa Screen INES 05/22/25 Logged 15:43 Pantoprazole PHA 05/23/25 In Process (Protonix) 10:00 Electrocardigram EKG 05/22/25 Logged 15:43 Insulin Lantus PHA 05/22/25 In Process (Glargine) (Lantus) 16:00 Glucose Blood PHA 05/22/25 In Process (Accu-Chek Comfort 16:00 Insulin R (Human) PHA 05/22/25 In Process (Insulin R) 16:00 Dextrose 50% Syringe PHA 05/22/25 In Process 16:00 Consistent DIET 05/22/25 Transmitted Carb(Ccho)Diabetes Dinner Provide Diabetic ORDERS 05/22/25 Transmitted Education 15:51 *Rn Clothing Examiner REFER 05/22/25 Transmitted Referral 15:51 Hepatic Panel LAB 05/22/25 In Process 15:51 Drug Screen LAB 05/22/25 Logged 15:51 Hemoglobin A1c LAB 05/22/25 In Process 15:55 Lipid Panel LAB 05/22/25 In Process 15:55 Ipratropium Medneb PHA 05/22/25 In Process (Atrovent Medneb) 16:00 Levalbuterol Hcl PHA 05/22/25 In Process (Xopenex Medneb) 18:00 Thyroid Stimulating LAB 05/22/25 In Process Hormone 15:56 Atorvastatin (Lipitor) PHA 05/22/25 In Process 22:00 Date of Service: May 22, 2025 Billing Provider: ROXANA LOZANO MD Common Visit Codes: [id number] INP/OBS CARE (HIGH) Secondary Visit Codes: [id number] CARE PLAN 30 MINUTES HARI CANO RESIDENT May 22, 2025 16:09
[2025-05-22 16:28] LABS: Triglycerides 121 mg/dL (< 150)
[2025-05-22 16:30] LABS: Cholesterol 106 mg/dL (< 200)
[2025-05-22 16:31] LABS: HDL Cholesterol 37 mg/dL (40-59)
[2025-05-22] MEDS ORDERED: LEVALBUTEROL HCL 1.25 MG/3 ML NEB NEB SCH (18:00)
--- NOTE | 2025-05-22 18:25 | DVHDSRES ---
Discharge Summary Date of Admission Resident Creating Document: HARI CANO RESIDENT May 22, 2025 at 15:40 Date of Discharge: May 22, 2025 Admitting Diagnosis Hyperglycemia Labs/Diagnostic Data: Laboratory Results Test 05/22/25 14:26 White Blood Count 7.6 10^3/uL (4.4-10.8) Red Blood Count 4.89 10^6/uL (4.0-5.20) Hemoglobin 13.1 g/dL (12.2-16.2) Hematocrit 39.7 % (36.0-46.0) Mean Corpuscular Volume 81.1 fL (80.0-100.0) Mean Corpuscular Hemoglobin 26.7 pg (28.0-32.0) Mean Corpuscular Hemoglobin Concent 32.9 g/dL (32.0-36.0) Red Cell Distribution Width 24.3 % (11.8-14.3) Platelet Count 215 10^3/uL (140-450) Mean Platelet Volume 10.3 fL (6.9-10.8) Neutrophils (%) (Auto) 62.2 % (37.0-80.0) Lymphocytes (%) (Auto) 30.8 % (10.0-50.0) Monocytes (%) (Auto) 4.5 % (0.0-12.0) Eosinophils (%) (Auto) 1.9 % (0.0-7.0) Basophils (%) (Auto) 0.6 % (0.0-2.0) Neutrophils # (Auto) 4.7 10 ^3/uL (1.6-8.6) Lymphocytes # (Auto) 2.3 10 ^3/uL (0.4-5.4) Monocytes # (Auto) 0.3 10 ^3/uL (0-1.3) Eosinophils # (Auto) 0.1 10 ^3/uL (0-0.8) Basophils # (Auto) 0 10 ^3/uL (0-0.2) Nucleated Red Blood Cells 0.2 % Sodium Level 130 mmol/L (136-145) Potassium Level 4.3 mmol/L (3.5-5.1) Chloride Level 100 mmol/L (98-107) Carbon Dioxide Level 25 mmol/L (20-31) Anion Gap 5 (5-15) Blood Urea Nitrogen 6 mg/dL (9-23) Creatinine 1.23 mg/dL (0.550-1.02) Glomerular Filtration Rate Calc 47 mL/min (>90) BUN/Creatinine Ratio 4.9 (10.0-20.0) Serum Glucose 691 mg/dL (74-106) Hemoglobin A1c > 14.0 % A1C (<5.7) Serum Osmolality 321 mOsm/kg (278-298) Calcium Level 8.6 mg/dL (8.7-10.4) B-Type Natriuretic Peptide 88.40 pg/mL (0-100) Triglycerides Level 121 mg/dL (< 150) Cholesterol Level 106 mg/dL (< 200) LDL Cholesterol 48 mg/dL (< 100) HDL Cholesterol 37 mg/dL (40-59) Beta-Hydroxybutyric Acid 0.203 mmol/L (< 0.4) Other Laboratory Tests 05/22/25 14:26 Brief Hx & Hospital Course: Patient is a 69-year-old female with past medical history of congestive heart failure, SVTs, COPD, type 2 diabetes, epilepsy but seizure-free for 10 years not on any home medication, essential hypertension, dyslipidemia, chronic respiratory failure currently not on home O2, noncompliance, coronary artery disease s/p CABG in November 2024 who comes in due to high blood glucose levels. According to the patient, she was called by her PCP who told the patient to come to the ER as she has very high blood glucose levels. Patient denies any symptoms, however, does not note seeing rainbow colored dots in her vision. Per patient, she is not on any home medication or insulin regimen for her diabetes, patient notes she has never been prescribed any medications to manage her diabetes, however, upon review of external medication history patient was prescribed insulin which he did not picker and sorter load and unload. On review of systems patient is complaining of chills, dry cough, shortness of breath on exertion and urinary frequency. Blood glucose in the hospital was noted to be 691, beta hydroxybutyric acid 0.203, serum bicarbonate 25 and anion gap of 5. Patient was started on basal bolus insulin, pain management. Echocardiogram was ordered, BNP COVID influenza testing was ordered as well as blood culture urine culture. Patient was started on a consistent carb diet and diabetic education was provided. Breathing treatments p.r.n. were also started for the patient, however, patient eloped before further evaluation and management could be completed. Condition at Discharge: Undetermined Final Diagnosis/Problems List Type 2 diabetes, uncontrolled on insulin dependent Noncompliance Acute on chronic heart failure, systolic versus diastolic Left scalp hematoma JENNIFER, likely hemodynamically mediated/VMN Methamphetamine abuse Discharge Disposition: Eloped Discharge Instruct/Medications Scheduled Metoprolol Tartrate (Metoprolol Tartrate), 12.5 MG PO BID Discharge Statement: "Patient was advised to return to the ER or call 911 if any headaches, dizziness, shortness of breath, chest pain, abdominal pain, bleeding, fevers, or worsening of medical condition. Patient was counseled about treatment plan, medications, possible side effects, patientverbalized understanding. All questions were answered to the best of my ability. This discharge took greater then 30 minutes in planning, reviewing documentation, counseling the patient, and discussing with other team members." ASSESSMENT ASSESSMENT Assessment Date of Service: May 22, 2025 Billing Provider: ROXANA RESENDEZ MD Common Visit Codes: 67601-FPQ/OBS DISCH DAY <30MIN HARI CANO RESIDENT May 22, 2025 18:25
[2025-05-22] MEDS ORDERED: ATORVASTATIN 20 MG TAB PO SCH (22:00)
[2025-05-23] MEDS ORDERED: PANTOPRAZOLE 40 MG/10 ML VIAL INJ IV SCH (10:00)
== END 2025-05-22 18:06 | disposition left against medical advice (07) | DRG 637 ==
LOC: ER 13:03 → OVERFLOW 15:40
PROVIDERS: ATTEND Emergency Medicine
DX: E11.00 Type 2 diabetes mellitus with hyperosmolarity without nonketotic hyperglycemic-hyperosmolar coma (NKHHC) (principal); I50.43 Acute on chronic combined systolic (congestive) and diastolic (congestive) heart failure; N17.0 Acute kidney failure with tubular necrosis; I11.0 Hypertensive heart disease with heart failure; E11.65 Type 2 diabetes mellitus with hyperglycemia; J44.9 Chronic obstructive pulmonary disease, unspecified; F15.10 Other stimulant abuse, uncomplicated; Z95.1 Presence of aortocoronary bypass graft; F17.210 Nicotine dependence, cigarettes, uncomplicated; I25.10 Atherosclerotic heart disease of native coronary artery without angina pectoris; I48.91 Unspecified atrial fibrillation; S00.03XA Contusion of scalp, initial encounter; K80.20 Calculus of gallbladder without cholecystitis without obstruction; E78.5 Hyperlipidemia, unspecified; Z79.4 Long term (current) use of insulin; Z82.0 Family history of epilepsy and other diseases of the nervous system; Z79.899 Other long term (current) drug therapy; Z91.148 Patient's other noncompliance with medication regimen for other reason; Z53.21 Procedure and treatment not carried out due to patient leaving prior to being seen by health care provider; Y99.8 Other external cause status; X58.XXXA Exposure to other specified factors, initial encounter; Y93.89 Activity, other specified; Y92.89 Other specified places as the place of occurrence of the external cause
CPT/HCPCS: 36415; 71046; 80048; 80061; 82010; 83036; 83880; 83930; 85025; 99291; G0378

== ENCOUNTER 2025-05-23 12:30 | Inpatient (IN) | payer MEDICARE, MEDICAID ==
[~2025-05-23] VITALS: Ht 154.9 cm; Wt 56.1 kg
--- NOTE | 2025-05-23 12:54 | ECG ---
[facility] Test Date: 2025-05-23 Test Time: 12:41:07 Pat Name: ROMEL ARAUJO Department: [facility] ED Patient ID: [id number] Room: 0282 Gender: F Genetic Counselor: lyndsey : 1955 Requested By: ASHLEY PARKER Order Number: [id number] Reading MD: Adrian Silva Measurements Intervals Gary Rate: 86 P: 57 ME: 159 QRS: -23 QRSD: 87 T: 33 QT: 376 QTc: 450 Interpretive Statements Sinus arrhythmia Borderline left axis deviation Anterior infarct, old Baseline wander in lead(s) V1 Electronically Signed On 05-27-2025 15:39:35 PST by Adrian Silva Please click the below link to view image of tracing.
--- NOTE | 2025-05-23 13:03 | ED.PDOC ---
History of Present Illness HPI Comments 69 year old female with PMHx a-fib, CAD, COPD, DM, HTN, Seizures, presents to the ED with a chief complaint of dizziness onset 5 days. Patient states she has been experiencing dizziness, excessive thirst for the past 5 days. Patient states she has not been able to get prescription of insulin. BG upon ED arrival was 574. Patient is a poor historian. No other symptoms or modifying factors present at this time. Chief Complaint: Dizziness Time Seen by MD: 12:50 Primary Care Provider: none Reviewed Notes: Medications, Allergies Allergies: Coded Allergies: NO KNOWN ALLERGIES (Unverified , 08/19/17) Home Meds Active Scripts Metoprolol Tartrate (Metoprolol Tartrate) 25 Mg Tab, 12.5 MG PO BID for 30 Days Prov:DOMINIQUE LEE MD 03/27/15 Information Source: Patient Mode of Arrival: Ambulatory Severity: Moderate Timing: Days Duration: Since onset Prehospital treatment: None Past Medical History PAST MEDICAL HISTORY: AFIB, CAD, COPD, DM, Gallstones, HTN, Seizures Surgical History: CABG, Pacemaker US MARKETING DIRECTOR History: No Pertinent US MARKETING DIRECTOR History Family History Family History: No family hx of Cancer, No family hx of DM Family History (Other): epilepsy Social History Smoker: Cigarettes Alcohol: Denies ETOH Use Drugs: Denies Drug Use Lives In: Home Constitutional: denies: chills, diaphoresis, fatigue, fever, malaise, sweats, weakness, others EENTM: denies: blurred vision, double vision, ear bleeding, ear discharge, ear drainage, ear pain, ear ringing, eye pain, eye redness, hearing loss, mouth pain, mouth swelling, nasal discharge, nose bleeding, nose congestion, nose pain, photophobia, tearing, throat pain, throat swelling, voice changes, others Respiratory: denies: cough, hemoptysis, orthopnea, SOB at rest, shortness of breath, SOB with excertion, stridor, wheezing, others Cardiovascular: denies: chest pain, dizzy spells, diaphoresis, Dyspnea on exertion, edema, irregular heart beat, left arm pain, lightheadedness, palpitations, PND, syncope, others Gastrointestinal: denies: abdomen distended, abdominal pain, blood streaked bowels, constipated, diarrhea, dysphagia, difficulty swallowing, hematemesis, melena, nausea, poor appetite, poor fluid intake, rectal bleeding, rectal pain, vomiting, others Genitourinary: denies: abnormal vagina bleeding, burning, dyspareunia, dysuria, flank pain, frequency, hematuria, incontinence, pain, , vagina discharge, urgency, others Neurological: reports: dizziness; denies: fainting, headache, left sided numbness, left sided weakness, numbness, paresthesia, pre-existing deficit, right sided numbness, right sided weakness, seizure, speech problems, tingling, tremors, weakness, others Musculoskeletal: denies: back pain, gout, joint pain, joint swelling, muscle pain, muscle stiffness, neck pain, others Integumetry: denies: bruises, change in color, change in hair/nails, dryness, laceration, lesions, lumps, rash, wounds, others Allergic/Immunocompromised: denies: Difficulty Healing, Frequent Infections, Hives, Itching, others Hematologic/Lymphatic: denies: anemia, blood clots, easy bleeding, easy bruising, swollen glands, others Endocrine: reports: excessive thirst; denies: excessive hunger, excessive sweating, excessive urination, flushing, intolerance to cold, intolerance to heat, unexplained weight gain, unexplained weight loss, others Psychiatric: denies: anxiety, bipolar disorder, depression, hopeless, panic disorder, schizophrenia, sleepless, suicidal, others All Other Systems: Reviewed and Negative Physical Exam General Appearance: Normal HEENT: Normal ENT Inspection, Pharynx Normal, TMs Normal Neck: Full Range of Motion, Non-Tender, Normal, Normal Inspection Respiratory: Chest Non-Tender, Lungs Clear, No Accessory Muscle Use, No Respiratory Distress, Normal Breath Sounds Cardiovascular: No Edema, No JVD, No Murmur, No Gallop, Normal Peripheral Pulses, Regular Rate/Rhythm Breast Exam: Deferred Gastrointestinal: No Organomegaly, Non Tender, No Pulsatile Mass, Normal Bowel Sounds, Soft Genitalia: Deferred Pelvic: Deferred Rectal: Deferred Extremities: No calf tenderness, Normal capillary refill, Normal inspection, Normal range of motion, Non-tender, No pedal edema Musculoskeletal : Apperance: Normal Neurologic: Disoriented Cerebellar Function: Normal Reflexes: Normal Skin: Dry, Normal Color, Warm Lymphatic: No Adenopathy Was a procedure done? Was a procedure done?: No Differential Dx Considerations may include: ACS, CVA, viral syndrome, electrolyte abnormality, infectious abnormality X-Ray, Labs, Meds, VS Vital Signs Date Time Temp Pulse Resp B/P (MAP) Pulse Ox O2 Delivery O2 Flow Rate FiO2 05/23/25 16:00 98.4 87 16 138/89 (105) 93 98.4 05/23/25 14:00 98.4 87 16 130/87 (101) 93 98.4 05/23/25 13:20 98.4 86 16 135/86 (102) 97 98.4 05/23/25 13:20 86 16 97 Room Air* 0 21 05/23/25 12:41 86 05/23/25 12:31 98.3 82 16 127/89 97 98.3 Lab Test 05/23/25 15:15 05/23/25 15:01 05/23/25 13:45 05/23/25 13:44 Range/Units POC Glucose 510 *H 70-106 mg/dl Troponin I High Sensitivity 14 15 </=34 ng/L B-Type Natriuretic Peptide 142.17 0-100 pg/mL White Blood Count 6.6 4.4-10.8 10^3/uL Red Blood Count 6.10 H 4.0-5.20 10^6/uL Hemoglobin 16.2 # 12.2-16.2 g/dL Hematocrit 50.5 #H 36.0-46.0 % Mean Corpuscular Volume 82.9 80.0-100.0 fL Mean Corpuscular Hemoglobin 26.5 L 28.0-32.0 pg Mean Corpuscular Hemoglobin Concent 32.0 32.0-36.0 g/dL Red Cell Distribution Width 23.9 H 11.8-14.3 % Platelet Count 195 140-450 10^3/uL Mean Platelet Volume 10.1 6.9-10.8 fL Neutrophils (%) (Auto) 72.8 37.0-80.0 % Lymphocytes (%) (Auto) 22.8 10.0-50.0 % Monocytes (%) (Auto) 2.5 0.0-12.0 % Eosinophils (%) (Auto) 1.2 0.0-7.0 % Basophils (%) (Auto) 0.7 0.0-2.0 % Neutrophils # (Auto) 4.8 1.6-8.6 10 ^3/uL Lymphocytes # (Auto) 1.5 0.4-5.4 10 ^3/uL Monocytes # (Auto) 0.2 0-1.3 10 ^3/uL Eosinophils # (Auto) 0.1 0-0.8 10 ^3/uL Basophils # (Auto) 0 0-0.2 10 ^3/uL Nucleated Red Blood Cells 0.1 % Platelet Estimate Adequate Giant Platelets Few Sodium Level 134 L 136-145 mmol/L Potassium Level 4.4 3.5-5.1 mmol/L Chloride Level 97 L 98-107 mmol/L Carbon Dioxide Level 25 20-31 mmol/L Anion Gap 12 5-15 Blood Urea Nitrogen 8 L 9-23 mg/dL Creatinine 1.19 H 0.550-1.02 mg/dL Glomerular Filtration Rate Calc 49 >90 mL/min BUN/Creatinine Ratio 6.7 L 10.0-20.0 Serum Glucose 646 *H 74-106 mg/dL Lactic Acid Level 1.6 0.4-2.0 mmol/L Calcium Level 9.2 8.7-10.4 mg/dL Total Bilirubin 0.6 0.2-1.0 mg/dL Aspartate Amino Transferase (AST) 21 13-40 U/L Alanine Aminotransferase (ALT) 19 7-40 U/L Alkaline Phosphatase 180 H 46-116 U/L Total Protein 7.3 5.7-8.2 g/dL Albumin 4.7 3.2-4.8 g/dL Plasma/Serum Blood Alcohol < 3.0 <10 mg/dL Test 05/23/25 13:00 05/23/25 12:57 Range/Units POC Glucose > 600 *H 574 *H 70-106 mg/dl Current Medications Medications (Trade) Dose Ordered Sig/Lianet Route Start Time Stop Time Status Last Admin Sodium Chloride 1,000 ml @ 1,000 mls/hr Q1H ONCE IV 05/23/25 14:15 05/23/25 15:14 DC 05/23/25 14:18 Time of 1ST Reevaluation: 13:20 Reevaluation 1ST: Unchanged Patient Education/Counseling: Diagnosis, Treatment, Need For Follow Up Family Education/Counseling: No Family Present SEPSIS Sepsis Screen Date sepsis recognized/suspect: May 23, 2025 Time Sepsis recognized/suspect: 1231 Recent Procedure: No On Antibiotic Therapy: No Respiratory Rate >20: No Heart Rate >90: No Temp<36 C (96.8 F) or >38.3 C: No SBP <90 or MAP <65 mmHG: No New Acute Mental Status Change: No Is the patient on CPAP, BIPAP,: No Physician Orders Urinalysis (05/23/25 12:52) Chest Portable (05/23/25 12:52) Head Without Contrast (05/23/25 12:52) Blood Culture (05/23/25 12:52) Troponin-I Hs (05/23/25 15:52) Electrocardigram (05/23/25 13:52) Electrocardigram (05/23/25 15:52) Insulin R (Human) (Insulin R) (05/23/25 16:45) Vital Signs Date Time Temp Pulse Resp B/P (MAP) Pulse Ox O2 Delivery O2 Flow Rate FiO2 05/23/25 16:00 98.4 87 16 138/89 (105) 93 98.4 05/23/25 14:00 98.4 87 16 130/87 (101) 93 98.4 05/23/25 13:20 98.4 86 16 135/86 (102) 97 98.4 05/23/25 13:20 86 16 97 Room Air* 0 21 05/23/25 12:41 86 05/23/25 12:31 98.3 82 16 127/89 97 98.3 Laboratory Tests Test 05/23/25 13:44 Lactic Acid Level 1.6 mmol/L (0.4-2.0) White Blood Count 6.6 10^3/uL (4.4-10.8) Medications Medications Dose Ordered Sig/Lianet Route Start Time Stop Time Status Last Admin Dose Admin Sodium Chloride 1,000 ml @ 1,000 mls/hr Q1H ONCE IV 05/23/25 14:15 05/23/25 15:14 DC 05/23/25 14:18 Departure 1 Departure Time of Disposition: 16:39 (Patient with a acute metabolic encephalopathy. Patient with a worsening confusion found to have a elevated blood glucose. We will start patient on insulin admit for further workup) Impression: Primary Impression: Acute metabolic encephalopathy Additional Impression: Uncontrolled diabetes mellitus Disposition: ADMITTED INPATIENT Admit to: Med Surg Condition: Guarded Critical Care Note Critical Care Time?: Yes Critical care comment: Altered mental status concern for CVA Authorized and Performed by: Ashley Sykes MD Total critical care time: Approximately 38 minutes Due to a high probability of clinically significant, life threatening deterioration, the patient required my highest level of preparedness to intervene emergently and I personally spent this critical care time directly and personally managing the patient. This critical care time included obtaining a history; examining the patient; pulse oximetry; ordering and review of studies; arranging urgent treatment with development of a management plan; evaluation of patient's response to treatment; frequent reassessment; and, discussions with other providers. This critical care time was performed to assess and manage the high probability of imminent, life-threatening deterioration that could result in multi-organ failure. It was exclusive of separately billable procedures and treating other patients and teaching time. Please see my other sections and the rest of the note for further information on patient assessment and treatment. Stability Stability form required: No Heart Score Heart Score: Heart Score Response (Comments) Value History N/A 0 EKG N/A 0 Age N/A 0 Risk Factors N/A 0 Troponin N/A 0 Total 0 I personally scribed for ASHLEY SYKES MD ([email or web address]) on 05/23/25 at 13:03. Electronically submitted by Kandice Tilley ([email or web address]). ASHLEY SYKES MD May 23, 2025 13:03
[2025-05-23 13:20] VITALS: PULSE 86; RESP 16; O2SAT 97
--- NOTE | 2025-05-23 13:56 | DVH ---
AP portable chest Comparison: 05/22/2025 CLINICAL INDICATION: ams FINDINGS: Heart size is enlarged. There are pacer leads in the heart. There is prominence the pulmonary vascular markings in the perihilar regions. Question small left pleural effusion. IMPRESSION: 1. Compared to previous exam signs of mild or early congestive changes are present
[2025-05-23 14:12] LABS: Hematocrit 50.5 % (36.0-46.0); Hemoglobin 16.2 g/dL (12.2-16.2); Nucleated Red Blood Cells % 0.1 %
[2025-05-23 14:15] LABS: Mean Corpuscular Hemoglobin 26.5 pg (28.0-32.0); Mean Corpuscular Volume 82.9 fL (80.0-100.0)
[2025-05-23] MEDS: SODIUM CHLORIDE 0.9% 1,000 ML IV ONE (14:18)
[2025-05-23 14:25] LABS: Alanine Aminotransferase 19 U/L (7-40); Calcium 9.2 mg/dL (8.7-10.4); Carbon Dioxide 25 mmol/L (20-31)
[2025-05-23 14:26] LABS: Albumin 4.7 g/dL (3.2-4.8); BUN/Creatinine Ratio 6.7 (10.0-20.0); Bilirubin, Total 0.6 mg/dL (0.2-1.0); Potassium 4.4 mmol/L (3.5-5.1); Total Protein 7.3 g/dL (5.7-8.2)
[2025-05-23 14:34] LABS: Alkaline Phosphatase 180 U/L (46-116); Blood Urea Nitrogen 8 mg/dL (9-23); Sodium 134 mmol/L (136-145)
[2025-05-23 14:35] LABS: Glucose 646 mg/dL (74-106)
[2025-05-23 14:37] LABS: Anion Gap 12 (5-15); Chloride 97 mmol/L (98-107)
[2025-05-23 14:52] LABS: Giant Platelets Few
--- NOTE | 2025-05-23 15:09 | DVH ---
CLINICAL HISTORY: Mental status change. TECHNIQUE: Helical scanning was performed of the head from the skull base to the vertex. Multiplanar reconstructions were performed. This exam was performed according to our departmental dose optimization program. Up-to-date CT equipment and radiation dose reduction techniques are utilized as appropriate. CTDI 54 DLP 967 COMPARISON: CT BRAIN on DOS: 09/10/18 FINDINGS: There is no evidence for acute intracranial hemorrhage, acute ischemic changes, mass, mass effect, or extra-axial fluid collection. There is no hydrocephalus or midline shift. There is no effacement of the cerebral sulci and basal subarachnoid cisterns. The martins-white matter differentiation is well maintained. There is mild brain volume loss and chronic small vessel ischemic change. There is a 4 cm left posterior scalp subcutaneous lesion with scattered calcifications. The imaged paranasal sinuses are clear. IMPRESSION: No acute intracranial abnormality seen. 4 cm left posterior scalp lesion, favor sebaceous cyst. Please correlate with physical exam.
[2025-05-23] MEDS: InsuLIN REG 1unit/0.01ml Soln (100units/ml) IV ONE (16:53)
[2025-05-23] MEDS ORDERED: DEXTROSE (50%) 50ML SYRG IV PRN (19:00)
[2025-05-23] MEDS ORDERED: ONDANSETRON HCL 4 MG/2 ML VIAL IV PRN (19:00)
[2025-05-23] MEDS: InsuLIN REG 1unit/0.01ml Soln (100units/ml) SC SCH (20:00)
[2025-05-23] MEDS: ACCU-CHEK COMFORT CURVE STRIP VI SCH (20:50)
[2025-05-23] MEDS: METOPROLOL TARTRATE 25 MG TAB PO SCH (22:00)
[2025-05-23 22:30] VITALS: BP 125/90; PULSE 89; RESP 18; TEMP 98.2; O2SAT 99
[2025-05-23 23:15] VITALS: BP 125/90; PULSE 87; RESP 18; TEMP 98.2; O2SAT 99
[2025-05-24] VITALS (8 sets, daily range): BP systolic 100–148; BP diastolic 66–98; PULSE 63–95; RESP 18; TEMP 97.4–98.6; O2SAT 94–99
--- NOTE | 2025-05-24 00:15 | DVHHP2 ---
History of Present Illness Reason for Visit: Dizziness History of Present Illness 69-year-old female presents for evaluation of generalized weakness with dizziness. Patient reports a five day history of generalized weakness with associated dizziness as well as excessive thirst and urination. Patient reports running out of her insulin and has not been able to get a refill. Denies nausea or vomiting. No abdominal pain. Past Medical History Diabetes mellitus, hypertension, seizures, COPD, CAD, AFib Past Surgical History CABG, pacemaker Family History Noncontributory Smoke: <1 pack per day ALCOHOL: none Drugs: None Lives: with Family Review of Systems Review of Systems Review of systems are currently negative otherwise addressed in HPI. Allergies: Coded Allergies: NO KNOWN ALLERGIES (Unverified , 08/19/17) Medications Current Medications Medications Dose Ordered Sig/Lianet Route Start Time Stop Time Status Last Admin Dose Admin Metoprolol Tartrate 25 mg BID PO 05/23/25 22:00 Levothyroxine Sodium 25 mcg QAM@0600 PO 05/24/25 06:00 Furosemide 40 mg DAILY PO 05/24/25 10:00 Atorvastatin Calcium 40 mg HS PO 05/23/25 22:00 Hydralazine HCl 25 mg Q12HR PO 05/23/25 22:00 Diagnostic Test (Pha) 1 strip IQ4HR 05/23/25 20:00 05/23/25 20:50 1 STRIP Insulin Human Regular IQ4HR SC 05/23/25 20:00 05/23/25 20:00 10 UNITS Dextrose 50 ml UD PRN IV 05/23/25 19:00 Ondansetron HCl 4 mg Q4HP PRN IV 05/23/25 19:00 Acetaminophen 650 mg Q6HP PRN PO 05/23/25 19:00 Exam Vital Signs Vital Signs Date Time Temp Pulse Resp B/P (MAP) Pulse Ox O2 Delivery O2 Flow Rate FiO2 05/23/25 22:30 98.2 89 18 125/90 (102) 99 98.2 05/23/25 13:20 Room Air* 0 21 Exam Gen: 69-year-old female in mild distress Skin: Warm, dry, normal color and texture, no rash. HEENT: Normocephalic atraumatic, mucous membranes moist and pink. Neck: Cervical and supraclavicular nodes normal without enlargement, trachea is midline, thyroid gland is normal without masses. Pulmonary: Clear to auscultation and percussion bilaterally. Cardiac: Regular rate and rhythm. No murmur Abdomen: Soft, nontender, nondistended, bowel sounds present all 4 quadrants, no guarding, no rigidity, no organomegaly. Extremities: No cyanosis, clubbing, no edema Neuro: Cranial nerves II through XII grossly intact, normal affect and speech, no focal motor deficits. Labs/Xrays ORDERING PHYSICIAN: ASHLEY PARKER MD PROCEDURE(s): CXRP - CHEST PORTABLE REASON: [facility] ORDER NUMBER(s): [id number], ACCESSION NUMBER(s): [id number] AP portable chest Comparison: 05/22/2025 CLINICAL INDICATION: ams FINDINGS: Heart size is enlarged. There are pacer leads in the heart. There is prominence the pulmonary vascular markings in the perihilar regions. Question small left pleural effusion. IMPRESSION: 1. Compared to previous exam signs of mild or early congestive changes are present RING PHYSICIAN: ASHLEY PARKER MD PROCEDURE(s): HWOCT - HEAD WITHOUT CONTRAST REASON: [facility] ORDER NUMBER(s): [id number], ACCESSION NUMBER(s): [id number] CLINICAL HISTORY: Mental status change. TECHNIQUE: Helical scanning was performed of the head from the skull base to the vertex. Multiplanar reconstructions were performed. This exam was performed according to our departmental dose optimization program. Up-to-date CT equipment and radiation dose reduction techniques are utilized as appropriate. CTDI 54 DLP 967 COMPARISON: CT BRAIN on DOS: 09/10/18 FINDINGS: There is no evidence for acute intracranial hemorrhage, acute ischemic changes, mass, mass effect, or extra-axial fluid collection. There is no hydrocephalus or midline shift. There is no effacement of the cerebral sulci and basal subarachnoid cisterns. The martins-white matter differentiation is well maintained. There is mild brain volume loss and chronic small vessel ischemic change. There is a 4 cm left posterior scalp subcutaneous lesion with scattered calcifications. The imaged paranasal sinuses are clear. IMPRESSION: No acute intracranial abnormality seen. 4 cm left posterior scalp lesion, favor sebaceous cyst. Please correlate with physical exam. Labs Test 05/23/25 20:46 05/23/25 16:49 05/23/25 13:45 05/23/25 13:44 Range/Units POC Glucose 556 *H 70-106 mg/dl Troponin I High Sensitivity 14 </=34 ng/L B-Type Natriuretic Peptide 142.17 0-100 pg/mL White Blood Count 6.6 4.4-10.8 10^3/uL Red Blood Count 6.10 H 4.0-5.20 10^6/uL Hemoglobin 16.2 # 12.2-16.2 g/dL Hematocrit 50.5 #H 36.0-46.0 % Mean Corpuscular Volume 82.9 80.0-100.0 fL Mean Corpuscular Hemoglobin 26.5 L 28.0-32.0 pg Mean Corpuscular Hemoglobin Concent 32.0 32.0-36.0 g/dL Red Cell Distribution Width 23.9 H 11.8-14.3 % Platelet Count 195 140-450 10^3/uL Mean Platelet Volume 10.1 6.9-10.8 fL Neutrophils (%) (Auto) 72.8 37.0-80.0 % Lymphocytes (%) (Auto) 22.8 10.0-50.0 % Monocytes (%) (Auto) 2.5 0.0-12.0 % Eosinophils (%) (Auto) 1.2 0.0-7.0 % Basophils (%) (Auto) 0.7 0.0-2.0 % Neutrophils # (Auto) 4.8 1.6-8.6 10 ^3/uL Lymphocytes # (Auto) 1.5 0.4-5.4 10 ^3/uL Monocytes # (Auto) 0.2 0-1.3 10 ^3/uL Eosinophils # (Auto) 0.1 0-0.8 10 ^3/uL Basophils # (Auto) 0 0-0.2 10 ^3/uL Nucleated Red Blood Cells 0.1 % Platelet Estimate Adequate Giant Platelets Few Sodium Level 134 L 136-145 mmol/L Potassium Level 4.4 3.5-5.1 mmol/L Chloride Level 97 L 98-107 mmol/L Carbon Dioxide Level 25 20-31 mmol/L Anion Gap 12 5-15 Blood Urea Nitrogen 8 L 9-23 mg/dL Creatinine 1.19 H 0.550-1.02 mg/dL Glomerular Filtration Rate Calc 49 >90 mL/min BUN/Creatinine Ratio 6.7 L 10.0-20.0 Serum Glucose 646 *H 74-106 mg/dL Lactic Acid Level 1.6 0.4-2.0 mmol/L Calcium Level 9.2 8.7-10.4 mg/dL Total Bilirubin 0.6 0.2-1.0 mg/dL Aspartate Amino Transferase (AST) 21 13-40 U/L Alanine Aminotransferase (ALT) 19 7-40 U/L Alkaline Phosphatase 180 H 46-116 U/L Total Protein 7.3 5.7-8.2 g/dL Albumin 4.7 3.2-4.8 g/dL Plasma/Serum Blood Alcohol < 3.0 <10 mg/dL SEPSIS Sepsis Screen Date sepsis recognized/suspect: May 23, 2025 Time Sepsis recognized/suspect: 132 Recent Procedure: No On Antibiotic Therapy: No Respiratory Rate >20: No Heart Rate >90: No Temp<36 C (96.8 F) or >38.3 C: No SBP <90 or MAP <65 mmHG: No New Acute Mental Status Change: No Is the patient on CPAP, BIPAP,: No Physician Orders Metoprolol Tartrate Tablet (Lopressor Ta (05/23/25 22:00) Levothyroxine Tablet (Synthroid Tablet) (05/24/25 06:00) Furosemide Tablet (Lasix Tablet) (05/24/25 10:00) Atorvastatin (Lipitor) (05/23/25 22:00) Hydralazine Hcl Tablet (Apresoline Table (05/23/25 22:00) Basic Metabolic Panel (05/24/25 04:00) Urinalysis (05/23/25 18:48) Glucose Blood (Accu-Chek Comfort Curve T (05/23/25 20:00) Insulin R (Human) (Insulin R) (05/23/25 20:00) Dextrose 50% Syringe (05/23/25 19:00) Admit (05/23/25 18:48) Ondansetron Hcl (Zofran) (05/23/25 19:00) Condition: Stable (05/23/25 18:48) Acetaminophen Tablet (Tylenol Tablet) (05/23/25 19:00) Bedrest With Bathroom Privileg (05/23/25 18:48) Vital Signs Date Time Temp Pulse Resp B/P (MAP) Pulse Ox O2 Delivery O2 Flow Rate FiO2 05/23/25 22:30 98.2 89 18 125/90 (102) 99 98.2 05/23/25 22:00 88 18 101/72 (82) 97 05/23/25 22:00 103/73 05/23/25 22:00 80 103/73 05/23/25 20:31 93 14 109/74 (86) 95 05/23/25 20:00 98.5 96 16 109/74 (86) 99 98.5 05/23/25 18:00 98.5 93 16 100/65 (77) 99 98.5 Laboratory Tests Test 05/23/25 13:44 Lactic Acid Level 1.6 mmol/L (0.4-2.0) White Blood Count 6.6 10^3/uL (4.4-10.8) Medications Medications Dose Ordered Sig/Lianet Route Start Time Stop Time Status Last Admin Dose Admin Diagnostic Test (Pha) 1 strip IQ4HR 05/23/25 20:00 05/23/25 20:50 1 STRIP Insulin Human Regular IQ4HR SC 05/23/25 20:00 05/23/25 20:00 10 UNITS Insulin Human Regular 10 units ONCE ONCE IV 05/23/25 16:45 05/23/25 16:46 DC 05/23/25 16:53 10 UNITS Sodium Chloride 1,000 ml @ 1,000 mls/hr Q1H ONCE IV 05/23/25 14:15 05/23/25 15:14 DC 05/23/25 14:18 1,000 MLS/HR Assessment/Plan Assessment/Plan Assessment Uncontrolled diabetes mellitus Acute kidney injury Hypertension Plan Admit the patient to [facility] to the hospitalist Q.4 hour Accu-Cheks Resume home medications Continue treatment per orders Plan discussed with: Patient My Orders Orders - ROCCO LOGAN Procedure Category Date Status Time Metoprolol Tartrate PHA 05/23/25 In Process Tablet (Lopressor Ta 22:00 Levothyroxine Tablet PHA 05/24/25 In Process (Synthroid Tablet) 06:00 Furosemide Tablet PHA 05/24/25 In Process (Lasix Tablet) 10:00 Atorvastatin (Lipitor) PHA 05/23/25 In Process 22:00 Hydralazine Hcl PHA 05/23/25 In Process Tablet (Apresoline 22:00 Basic Metabolic Panel LAB 05/24/25 Logged 04:00 Urinalysis LAB 05/23/25 Logged 18:48 Glucose Blood PHA 05/23/25 In Process (Accu-Chek Comfort 20:00 Insulin R (Human) PHA 05/23/25 In Process (Insulin R) 20:00 Dextrose 50% Syringe PHA 05/23/25 In Process 19:00 Admit ADMIT 05/23/25 Transmitted 18:48 Ondansetron Hcl PHA 05/23/25 In Process (Zofran) 19:00 Condition: Stable AARTI 05/23/25 In Process 18:48 Acetaminophen Tablet PHA 05/23/25 In Process (Tylenol Tablet) 19:00 Bedrest With Bathroom AARTI 05/23/25 In Process Privileg 18:48 Date of Service: May 23, 2025 Billing Provider: ROCCO LOGAN Common Visit Codes: [id number] INP/OBS CARE (MOD) ROCCO LOGAN May 24, 2025 00:15
[2025-05-24] MEDS: ATORVASTATIN 20 MG TAB PO SCH (01:41)
[2025-05-24] MEDS: LEVOTHYROXINE SODIUM 25 MCG TAB PO SCH (05:05)
[2025-05-24] MEDS: FUROSEMIDE 40 MG TAB PO SCH (08:57)
[2025-05-24 09:13] LABS: Chloride 106 mmol/L (98-107); Potassium 3.5 mmol/L (3.5-5.1); Sodium 142 mmol/L (136-145)
[2025-05-24 09:14] LABS: Anion Gap 9 (5-15); Carbon Dioxide 27 mmol/L (20-31)
[2025-05-24 09:19] LABS: BUN/Creatinine Ratio 11.0 (10.0-20.0)
[2025-05-24 09:20] LABS: Blood Urea Nitrogen 9 mg/dL (9-23); Calcium 8.5 mg/dL (8.7-10.4); Glucose 276 mg/dL (74-106)
--- NOTE | 2025-05-24 12:21 | DVHPN2 ---
Reviewed: Care Plan, H&P, Labs, Medications, Previous Orders, Radiology Changes from previous H/P or p: No Changes Objective Vitals Vital Signs Date Time Temp Pulse Resp B/P (MAP) Pulse Ox O2 Delivery O2 Flow Rate FiO2 05/24/25 09:00 97.4 83 18 100/69 (79) 95 97.4 05/24/25 08:00 Room Air* 0 21 Intake/Output Intake and Output 05/24/25 07:00 Intake Total 1400 ml Balance 1400 ml Intake Oral 400 ml IV Total 1000 ml # Voids 1 Medications Current Medications Medications Dose Ordered Sig/Lianet Route Start Time Stop Time Status Last Admin Dose Admin Metoprolol Tartrate 25 mg BID PO 05/23/25 22:00 05/24/25 08:57 25 MG Levothyroxine Sodium 25 mcg QAM@0600 PO 05/24/25 06:00 05/24/25 05:05 25 MCG Furosemide 40 mg DAILY PO 05/24/25 10:00 05/24/25 08:57 40 MG Atorvastatin Calcium 40 mg HS PO 05/23/25 22:00 05/24/25 01:41 40 MG Hydralazine HCl 25 mg Q12HR PO 05/23/25 22:00 05/24/25 08:56 25 MG Diagnostic Test (Pha) 1 strip IQ4HR 05/23/25 20:00 05/24/25 11:49 1 STRIP Insulin Human Regular IQ4HR SC 05/23/25 20:00 05/24/25 11:55 8 UNITS Dextrose 50 ml UD PRN IV 05/23/25 19:00 Ondansetron HCl 4 mg Q4HP PRN IV 05/23/25 19:00 Acetaminophen 650 mg Q6HP PRN PO 05/23/25 19:00 Laboratory Results Laboratory Tests 05/23/25 13:44 05/24/25 08:39 Chemistry Test 05/23/25 13:44 05/24/25 08:39 Albumin 4.7 g/dL (3.2-4.8) Calcium Level 9.2 mg/dL (8.7-10.4) 8.5 mg/dL (8.7-10.4) L Total Protein 7.3 g/dL (5.7-8.2) Cardiac Markers Test 05/23/25 13:45 B-Type Natriuretic Peptide 142.17 pg/mL (0-100) LFT Test 05/23/25 13:44 Alanine Aminotransferase (ALT) 19 U/L (7-40) Alkaline Phosphatase 180 U/L (46-116) H Aspartate Amino Transferase (AST) 21 U/L (13-40) Total Bilirubin 0.6 mg/dL (0.2-1.0) Labs and/or images reviewed: Labs reviewed by me, Image(s) reviewed by me Assessment/Plan Assessment/Plan Type 2 diabetes, uncontrolled on insulin dependent blood sugar 650: Abusive insulin sliding scale diabetic education Hypotension History of seizures COPD Coronary artery disease status post CABG and pacemaker Atrial fibrillation Noncompliance Acute on chronic heart failure, systolic versus diastolic JENNIFER, likely hemodynamically mediated/VMN Methamphetamine abuse Art Albarado [phone] at bedside Frequent admissions Time Spent 70 minutes Advanced care planning time 20 minutes Patient is full code Plan discussed with: Patient Date of Service: May 24, 2025 Billing Provider: RICHY COYNE MD Common Visit Codes: [id number] CARE 30-74 MIN RICHY COYNE MD May 24, 2025 12:21
[2025-05-24] MEDS ORDERED: DEXTROSE (50%) 50ML SYRG IV PRN (13:30)
[2025-05-24] MEDS: InsuLIN REG 1unit/0.01ml Soln (100units/ml) SC SCH (16:14)
[2025-05-24] MEDS ORDERED: INSULIN LANTUS (GLARGINE) 1 /0.01ml (100units/ml) SC SCH (22:00)
[2025-05-25] VITALS (8 sets, daily range): BP systolic 86–129; BP diastolic 62–95; PULSE 68–78; RESP 18–20; TEMP 97.3–99.1; O2SAT 91–98
[2025-05-25] MEDS: ACETAMINOPHEN 325 MG TAB PO PRN (04:16)
--- NOTE | 2025-05-25 11:33 | DVHPN2 ---
Reviewed: Care Plan, H&P, Labs, Medications, Previous Orders, Radiology Changes from previous H/P or p: No Changes Objective Vitals Vital Signs Date Time Temp Pulse Resp B/P (MAP) Pulse Ox O2 Delivery O2 Flow Rate FiO2 05/25/25 10:52 103/62 05/25/25 09:00 98.6 77 18 94 98.6 05/24/25 20:00 Room Air* 0 21 Intake/Output Intake and Output 05/25/25 07:00 Intake Total 1745 ml Balance 1745 ml Intake Oral 1745 ml # Voids 8 Medications Current Medications Medications Dose Ordered Sig/Liaent Route Start Time Stop Time Status Last Admin Dose Admin Metoprolol Tartrate 25 mg BID PO 05/23/25 22:00 05/24/25 21:32 25 MG Levothyroxine Sodium 25 mcg QAM@0600 PO 05/24/25 06:00 05/25/25 05:34 25 MCG Furosemide 40 mg DAILY PO 05/24/25 10:00 05/25/25 10:52 40 MG Atorvastatin Calcium 40 mg HS PO 05/23/25 22:00 05/24/25 21:29 40 MG Hydralazine HCl 25 mg Q12HR PO 05/23/25 22:00 05/24/25 21:32 25 MG Diagnostic Test (Pha) 1 strip IQ4HR 05/23/25 20:00 05/25/25 08:21 1 STRIP Dextrose 50 ml UD PRN IV 05/23/25 19:00 Cancel Ondansetron HCl 4 mg Q4HP PRN IV 05/23/25 19:00 Acetaminophen 650 mg Q6HP PRN PO 05/23/25 19:00 05/25/25 04:16 650 MG Insulin Human Regular IQ4HR SC 05/24/25 16:00 05/25/25 09:00 4 UNITS Dextrose 50 ml UD PRN IV 05/24/25 13:30 Laboratory Results Laboratory Tests 05/23/25 13:44 05/24/25 08:39 Microbiology Microbiology Date/Time Source Procedure Growth Status 05/23/25 13:56 Blood Blood Culture - Preliminary NO GROWTH AFTER 24 HOURS OF INCUBATION. Resulted Labs and/or images reviewed: Labs reviewed by me, Image(s) reviewed by me Assessment/Plan Assessment/Plan Type 2 diabetes, uncontrolled on insulin dependent blood sugar 650: Aggressive insulin sliding scale diabetic education Hypertension History of seizures COPD Coronary artery disease status post CABG and pacemaker Atrial fibrillation Noncompliance Acute on chronic heart failure, systolic versus diastolic JENNIFER, likely hemodynamically mediated/VMN Methamphetamine abuse Art Albarado [phone] at bedside Frequent admissions Time Spent 60 minutes Advanced care planning time 20 minutes Patient is full code Plan discussed with: Patient My Orders Orders - RICHY COYNE MD Procedure Category Date Status Time Drug Screen LAB 05/24/25 Logged 12:36 * Call Worker CONS 05/24/25 Transmitted Consult Insulin R (Human) PHA 05/24/25 In Process (Insulin R) 16:00 Dextrose 50% Syringe PHA 05/24/25 In Process 13:30 Stat Ekg For Chest AARTI 05/25/25 In Process Pain 03:52 Date of Service: May 25, 2025 Billing Provider: RICHY COYNE MD Common Visit Codes: [id number] INP/OBS CARE(HIGH) RICHY COYNE MD May 25, 2025 11:33
[2025-05-25 13:25] LABS: Urine Protein, UAD Negative (Negative)
[2025-05-25 13:38] LABS: Amphetamine Screen, Urine Pos (NEGATIVE)
[2025-05-25 13:45] LABS: Barbiturate Scree,Urine Neg (NEGATIVE); Benzodiazephine Screen, Urine Neg (NEGATIVE); Cannabinoid Screen, Urine Neg (NEGATIVE); Cocaine Screen, Urine Neg (NEGATIVE); Opiate Scree,Urine Neg (NEGATIVE); Phencyclidine Screen, Urine Neg (NEGATIVE)
--- NOTE | 2025-05-25 19:30 | ECG ---
[facility] Test Date: 2025-05-25 Test Time: 03:42:35 Pat Name: ROMEL ARAUJO Department: Room: 0282 Gender: F Composite [employer] Worker: mnaisha rainey : 1955 Requested By: RICHY COYNE Order Number: [id number] Reading MD: Adrian Silva Measurements Intervals [place] Rate: 69 P: 47 FL: 153 QRS: -25 QRSD: 87 T: 71 QT: 416 QTc: 446 Interpretive Statements Sinus rhythm Probable left atrial enlargement Inferior infarct, old Anterior infarct, old Electronically Signed On 05-27-2025 15:32:52 PST by Adrian Silva Please click the below link to view image of tracing.
[2025-05-26] VITALS (7 sets, daily range): BP systolic 83–143; BP diastolic 54–99; PULSE 67–105; RESP 17–20; TEMP 97.2–99.2; O2SAT 94–97
--- NOTE | 2025-05-26 12:07 | DVHPN2 ---
Reviewed: Care Plan, H&P, Labs, Medications, Previous Orders, Radiology Changes from previous H/P or p: No Changes Objective Vitals Vital Signs Date Time Temp Pulse Resp B/P (MAP) Pulse Ox O2 Delivery O2 Flow Rate FiO2 05/26/25 09:00 97.2 83 18 109/72 (84) 96 97.2 05/25/25 20:00 Room Air* 0 21 Intake/Output Intake and Output 05/26/25 07:00 Intake Total 1080 ml Balance 1080 ml Intake Oral 1080 ml # Voids 6 # Bowel Movements 1 Medications Current Medications Medications Dose Ordered Sig/Lianet Route Start Time Stop Time Status Last Admin Dose Admin Metoprolol Tartrate 25 mg BID PO 05/23/25 22:00 05/25/25 21:36 25 MG Levothyroxine Sodium 25 mcg QAM@0600 PO 05/24/25 06:00 05/26/25 05:45 25 MCG Furosemide 40 mg DAILY PO 05/24/25 10:00 05/25/25 10:52 40 MG Atorvastatin Calcium 40 mg HS PO 05/23/25 22:00 05/25/25 21:36 40 MG Hydralazine HCl 25 mg Q12HR PO 05/23/25 22:00 05/25/25 21:36 25 MG Diagnostic Test (Pha) 1 strip IQ4HR 05/23/25 20:00 05/26/25 09:48 1 STRIP Dextrose 50 ml UD PRN IV 05/23/25 19:00 Cancel Ondansetron HCl 4 mg Q4HP PRN IV 05/23/25 19:00 Acetaminophen 650 mg Q6HP PRN PO 05/23/25 19:00 05/25/25 04:16 650 MG Insulin Human Regular IQ4HR SC 05/24/25 16:00 05/26/25 09:58 20 UNITS Dextrose 50 ml UD PRN IV 05/24/25 13:30 Insulin Glargine 30 units HS SC 05/26/25 22:00 UNV Laboratory Results Laboratory Tests 05/23/25 13:44 05/24/25 08:39 Urinalysis Test 05/25/25 12:55 Urine Color Light-yellow (Yellow) Urine Clarity Clear (Clear) Urine pH 6.0 (5.0-9.0) Urine Specific [place] 1.014 (1.001-1.035) Urine Protein Negative (Negative) Urine Ketones Negative (Negative) Urine Blood Negative /uL (Negative) Urine Nitrite Negative (Negative) Urine Bilirubin Negative (Negative) Urine Urobilinogen Normal mg/dL (Negative) Urine Leukocyte Esterase 1+ /uL (Negative) Urine RBC 1 /hpf (0 - 4) Urine Microscopic WBC 2 /HPF (0-5) Urine Squamous Epithelial Cells Few /hpf (<5) Urine Calcium Oxalate Crystals Few (None Seen) Urine Bacteria None seen /hpf (None Seen) Urine Glucose 4+ mg/dL (Normal) H Microbiology Microbiology Date/Time Source Procedure Growth Status 05/23/25 13:56 Blood Blood Culture - Preliminary NO GROWTH AFTER 48 HOURS OF INCUBATION. Resulted Labs and/or images reviewed: Labs reviewed by me, Image(s) reviewed by me Assessment/Plan Assessment/Plan Type 2 diabetes, uncontrolled on insulin dependent blood sugar 650: Aggressive insulin sliding scale Lantus 30 units q.h.s., metformin 1000 mg p.o. b.i.d. diabetic education Uncontrolled diabetes A1c more than 14.5 on 05/22/2025 Hypertension History of seizures COPD Coronary artery disease status post CABG and pacemaker Atrial fibrillation Noncompliance Acute on chronic heart failure, systolic versus diastolic JENNIFER, likely hemodynamically mediated/VMN Methamphetamine abuse counseling Art Albarado [phone] at bedside Frequent admissions Time Spent 60 minutes Advanced care planning time 20 minutes Patient is full code Plan discussed with: Patient My Orders Orders - RICHY COYNE MD Procedure Category Date Status Time Insert Midline ORDERS 05/25/25 Transmitted 14:41 Mrsa Screen INES 05/25/25 In Process 17:56 Potassium LAB 05/26/25 Logged 10:59 Insulin Lantus PHA 05/26/25 Logged (Glargine) (Lantus) 22:00 Date of Service: May 26, 2025 Billing Provider: RICHY COYNE MD Common Visit Codes: [id number] INP/OBS CARE(HIGH) RICHY COYNE MD May 26, 2025 12:07
[2025-05-26] MEDS: MUPIROCIN 2% OINT 15gm or 22gm FOR MRSA NARES EACHNOSTRI SCH (22:00)
[2025-05-26] MEDS: INSULIN LANTUS (GLARGINE) 1 /0.01ml (100units/ml) SC SCH (22:59)
[2025-05-27 01:00] VITALS: BP 104/78; PULSE 68; RESP 19; TEMP 99.9; O2SAT 94
[2025-05-27 05:08] VITALS: BP 90/69; PULSE 59; RESP 19; TEMP 97.8; O2SAT 95
[2025-05-27 09:00] VITALS: BP 148/88; PULSE 94; RESP 15; TEMP 97.8; O2SAT 98
--- NOTE | 2025-05-27 11:04 | DVHPN2 ---
Reviewed: Care Plan, H&P, Labs, Medications, Previous Orders, Radiology Changes from previous H/P or p: No Changes Objective Vitals Vital Signs Date Time Temp Pulse Resp B/P (MAP) Pulse Ox O2 Delivery O2 Flow Rate FiO2 05/27/25 10:25 148/88 05/27/25 10:25 94 05/27/25 09:00 97.8 15 98 97.8 05/27/25 08:00 Room Air* 0 21 Intake/Output Intake and Output 05/27/25 07:00 Intake Total 1700 ml Balance 1700 ml Intake Oral 1700 ml # Voids 4 Medications Current Medications Medications Dose Ordered Sig/Lianet Route Start Time Stop Time Status Last Admin Dose Admin Metoprolol Tartrate 25 mg BID PO 05/23/25 22:00 05/27/25 10:25 25 MG Levothyroxine Sodium 25 mcg QAM@0600 PO 05/24/25 06:00 05/27/25 06:22 25 MCG Furosemide 40 mg DAILY PO 05/24/25 10:00 05/27/25 10:25 40 MG Atorvastatin Calcium 40 mg HS PO 05/23/25 22:00 05/26/25 22:51 40 MG Hydralazine HCl 25 mg Q12HR PO 05/23/25 22:00 05/27/25 10:25 25 MG Diagnostic Test (Pha) 1 strip IQ4HR 05/23/25 20:00 05/27/25 08:22 1 STRIP Dextrose 50 ml UD PRN IV 05/23/25 19:00 Cancel Ondansetron HCl 4 mg Q4HP PRN IV 05/23/25 19:00 Acetaminophen 650 mg Q6HP PRN PO 05/23/25 19:00 05/25/25 04:16 650 MG Insulin Human Regular IQ4HR SC 05/24/25 16:00 05/27/25 08:33 20 UNITS Dextrose 50 ml UD PRN IV 05/24/25 13:30 Metformin HCl 1,000 mg BIDWM PO 05/26/25 18:00 05/27/25 08:23 1,000 MG Mupirocin 1 applic BID EACHNOSTRI 05/26/25 22:00 05/31/25 21:59 05/26/25 22:00 1 APPLIC Insulin Glargine 40 units HS SC 05/27/25 22:00 Laboratory Results Laboratory Tests 05/23/25 13:44 05/24/25 08:39 05/26/25 12:05 Urinalysis Test 05/25/25 12:55 Urine Color Light-yellow (Yellow) Urine Clarity Clear (Clear) Urine pH 6.0 (5.0-9.0) Urine Specific [place] 1.014 (1.001-1.035) Urine Protein Negative (Negative) Urine Ketones Negative (Negative) Urine Blood Negative /uL (Negative) Urine Nitrite Negative (Negative) Urine Bilirubin Negative (Negative) Urine Urobilinogen Normal mg/dL (Negative) Urine Leukocyte Esterase 1+ /uL (Negative) Urine RBC 1 /hpf (0 - 4) Urine Microscopic WBC 2 /HPF (0-5) Urine Squamous Epithelial Cells Few /hpf (<5) Urine Calcium Oxalate Crystals Few (None Seen) Urine Bacteria None seen /hpf (None Seen) Urine Glucose 4+ mg/dL (Normal) H Microbiology Microbiology Date/Time Source Procedure Growth Status 05/25/25 14:00 Nose MRSA Screen - Final Methicillin Resistant S.aureus Complete 05/23/25 13:56 Blood Blood Culture - Preliminary NO GROWTH AFTER 72 HOURS OF INCUBATION. Resulted Labs and/or images reviewed: Labs reviewed by me, Image(s) reviewed by me Assessment/Plan Assessment/Plan Uncontrolled Type 2 diabetes, A1c 14.5 uncontrolled on insulin dependent blood sugar 650: Aggressive insulin sliding scale Lantus 40 units q.h.s., metformin 1000 mg p.o. b.i.d. diabetic education Hypertension History of seizures COPD Coronary artery disease status post CABG and pacemaker Atrial fibrillation Acute on chronic heart failure, systolic versus diastolic JENNIFER, likely hemodynamically mediated/VMN Methamphetamine abuse counseling Art Albarado [phone] at bedside Frequent admissions Time Spent 60 minutes Advanced care planning time 20 minutes Patient is full code Plan discussed with: Patient My Orders Orders - RICHY COYNE MD Procedure Category Date Status Time Metformin PHA 05/26/25 In Process Hydrochloride 18:00 Mupirocin 2% Oint PHA 05/26/25 In Process Mrsa Nares (Bactroban 22:00 Insulin Lantus PHA 05/27/25 In Process (Glargine) (Lantus) 22:00 Date of Service: May 27, 2025 Billing Provider: RICHY COYNE MD Common Visit Codes: [id number] INP/OBS CARE(HIGH) RICHY COYNE MD May 27, 2025 11:04
--- NOTE | 2025-05-27 11:14 | DVHDS2 ---
Discharge Summary Date of Admission May 23, 2025 at 18:48 Date of Discharge: May 27, 2025 Admitting Diagnosis Generalized weakness secondary to uncontrolled diabetes Wounds: None Labs/Diagnostic Data: Laboratory Results Test 05/27/25 10:27 05/26/25 12:05 05/25/25 12:55 05/24/25 12:55 POC Glucose 328 mg/dl (70-106) Potassium Level 3.5 mmol/L (3.5-5.1) Urine Color Light-yellow (Yellow) Urine Clarity Clear (Clear) Urine pH 6.0 (5.0-9.0) Urine Specific [place] 1.014 (1.001-1.035) Urine Protein Negative (Negative) Urine Ketones Negative (Negative) Urine Blood Negative /uL (Negative) Urine Nitrite Negative (Negative) Urine Bilirubin Negative (Negative) Urine Urobilinogen Normal mg/dL (Negative) Urine Leukocyte Esterase 1+ /uL (Negative) Urine RBC 1 /hpf (0 - 4) Urine Microscopic WBC 2 /HPF (0-5) Urine Squamous Epithelial Cells Few /hpf (<5) Urine Calcium Oxalate Crystals Few (None Seen) Urine Bacteria None seen /hpf (None Seen) Urine Glucose 4+ mg/dL (Normal) Urine Opiates Screen Neg (NEGATIVE) Urine Fentanyl Screen Neg (NEGATIVE) Urine Barbiturates Screen Neg (NEGATIVE) Urine Phencyclidine Screen Neg (NEGATIVE) Urine Amphetamines Screen Pos (NEGATIVE) Urine Benzodiazepines Screen Neg (NEGATIVE) Urine Cocaine Screen Neg (NEGATIVE) Urine Cannabinoids Screen Neg (NEGATIVE) Test 05/24/25 08:39 05/23/25 16:49 05/23/25 13:45 05/23/25 13:44 Sodium Level 142 mmol/L (136-145) Chloride Level 106 mmol/L (98-107) Carbon Dioxide Level 27 mmol/L (20-31) Anion Gap 9 (5-15) Blood Urea Nitrogen 9 mg/dL (9-23) Creatinine 0.82 mg/dL (0.550-1.02) Glomerular Filtration Rate Calc 77 mL/min (>90) BUN/Creatinine Ratio 11.0 (10.0-20.0) Serum Glucose 276 mg/dL (74-106) Calcium Level 8.5 mg/dL (8.7-10.4) Troponin I High Sensitivity 14 ng/L (</=34) B-Type Natriuretic Peptide 142.17 pg/mL (0-100) White Blood Count 6.6 10^3/uL (4.4-10.8) Red Blood Count 6.10 10^6/uL (4.0-5.20) Hemoglobin 16.2 g/dL (12.2-16.2) Hematocrit 50.5 % (36.0-46.0) Mean Corpuscular Volume 82.9 fL (80.0-100.0) Mean Corpuscular Hemoglobin 26.5 pg (28.0-32.0) Mean Corpuscular Hemoglobin Concent 32.0 g/dL (32.0-36.0) Red Cell Distribution Width 23.9 % (11.8-14.3) Platelet Count 195 10^3/uL (140-450) Mean Platelet Volume 10.1 fL (6.9-10.8) Neutrophils (%) (Auto) 72.8 % (37.0-80.0) Lymphocytes (%) (Auto) 22.8 % (10.0-50.0) Monocytes (%) (Auto) 2.5 % (0.0-12.0) Eosinophils (%) (Auto) 1.2 % (0.0-7.0) Basophils (%) (Auto) 0.7 % (0.0-2.0) Neutrophils # (Auto) 4.8 10 ^3/uL (1.6-8.6) Lymphocytes # (Auto) 1.5 10 ^3/uL (0.4-5.4) Monocytes # (Auto) 0.2 10 ^3/uL (0-1.3) Eosinophils # (Auto) 0.1 10 ^3/uL (0-0.8) Basophils # (Auto) 0 10 ^3/uL (0-0.2) Nucleated Red Blood Cells 0.1 % Platelet Estimate Adequate Giant Platelets Few Lactic Acid Level 1.6 mmol/L (0.4-2.0) Total Bilirubin 0.6 mg/dL (0.2-1.0) Aspartate Amino Transferase (AST) 21 U/L (13-40) Alanine Aminotransferase (ALT) 19 U/L (7-40) Alkaline Phosphatase 180 U/L (46-116) Total Protein 7.3 g/dL (5.7-8.2) Albumin 4.7 g/dL (3.2-4.8) Plasma/Serum Blood Alcohol < 3.0 mg/dL (<10) Other Laboratory Tests 05/26/25 12:05 05/24/25 08:39 05/23/25 13:44 Brief Hx & Hospital Course: 69-year-old female with a history of insulin-dependent diabetes hypotension seizures COPD coronary artery disease status post CABG AFib chronic congestive heart failure chronic current meth abuse recently discharged from this hospital five days ago came back next today for uncontrolled diabetes and generalized weakness blood sugars range of 650. A1c 14.5 patient is very noncompliant patient was placed on aggressive insulin sliding scale and Lantus 30 units HS and increased to 40 units HS medications continued for comorbid conditions patient was counseled against using methamphetamine. Patient is very noncompliant and has poor social support. Being discharged to nursing home facility for medication management and rehab. The plan acceptable to the patient Consults/Reason for consult None Operations or Procedures None Condition at Discharge: Fair Final Diagnosis/Problems List Uncontrolled Type 2 diabetes, A1c 14.5 uncontrolled on insulin dependent blood sugar 650: Aggressive insulin sliding scale Lantus 40 units q.h.s., metformin 1000 mg p.o. b.i.d. diabetic education Hypertension History of seizures COPD Coronary artery disease status post CABG and pacemaker Atrial fibrillation Acute on chronic heart failure, systolic versus diastolic JENNIFER, likely hemodynamically mediated/VMN Methamphetamine abuse counseling Discharge Disposition: Assisted Facility Discharge Instruct/Medications Diet: Consistent carbohydrate Activity: Light activity Follow Up/Referral: Follow up with the shelter dr Medications: see list Scheduled Metoprolol Tartrate (Metoprolol Tartrate), 12.5 MG PO BID 39 (Time taken for discharge summary 39 minutes) Discharge Statement: "Patient was advised to return to the ER or call 911 if any headaches, dizziness, shortness of breath, chest pain, abdominal pain, bleeding, fevers, or worsening of medical condition. Patient was counseled about treatment plan, medications, possible side effects, patientverbalized understanding. All questions were answered to the best of my ability. This discharge took greater then 30 minutes in planning, reviewing documentation, counseling the patient, and discussing with other team members." ASSESSMENT ASSESSMENT Hospital Course Marginally improved Assessment Uncontrolled Type 2 diabetes, A1c 14.5 uncontrolled on insulin dependent blood sugar 650: Aggressive insulin sliding scale Lantus 40 units q.h.s., metformin 1000 mg p.o. b.i.d. diabetic education Hypertension History of seizures COPD Coronary artery disease status post CABG and pacemaker Atrial fibrillation Acute on chronic heart failure, systolic versus diastolic JENNIFER, likely hemodynamically mediated/VMN Methamphetamine abuse counseling Date of Service: May 27, 2025 Billing Provider: RICHY COYNE MD Common Visit Codes: 38821-SKF/OBS DISCH DAY >30min RICHY COYNE MD May 27, 2025 11:14
[2025-05-27 12:33] VITALS: BP 102/71; PULSE 67; RESP 20; TEMP 98.6; O2SAT 97
[2025-05-27 16:45] VITALS: BP 129/98; PULSE 78; RESP 19; TEMP 98.8; O2SAT 96
[2025-05-27 21:00] VITALS: BP 145/98; PULSE 82; RESP 19; TEMP 98.1; O2SAT 96
[2025-05-27] MEDS: INSULIN LANTUS (GLARGINE) 1 /0.01ml (100units/ml) SC SCH (21:46)
[2025-05-28 01:00] VITALS: BP 117/73; PULSE 68; RESP 19; TEMP 98.4; O2SAT 98
[2025-05-28 05:00] VITALS: BP 115/62; PULSE 81; RESP 20; TEMP 98.1; O2SAT 96
[2025-05-28 09:00] VITALS: BP 86/54; PULSE 61; RESP 20; TEMP 98.2; O2SAT 100
[2025-05-28 12:28] VITALS: BP 122/76; PULSE 76; RESP 20; TEMP 98.7; O2SAT 96
[2025-05-28 12:33] VITALS: BP 101/69; PULSE 73; RESP 18; TEMP 37.1; O2SAT 98
== END 2025-05-28 14:52 | disposition home or self-care (01) | DRG 637 ==
LOC: ER 12:30 → OVERFLOW 18:48 → WEST WING 22:17
PROVIDERS: ADMIT Family Medicine; ATTEND Family Medicine
DX: E11.65 Type 2 diabetes mellitus with hyperglycemia (principal); G93.41 Metabolic encephalopathy; I50.43 Acute on chronic combined systolic (congestive) and diastolic (congestive) heart failure; N17.0 Acute kidney failure with tubular necrosis; I11.0 Hypertensive heart disease with heart failure; J44.9 Chronic obstructive pulmonary disease, unspecified; F15.10 Other stimulant abuse, uncomplicated; I48.91 Unspecified atrial fibrillation; I25.10 Atherosclerotic heart disease of native coronary artery without angina pectoris; F17.210 Nicotine dependence, cigarettes, uncomplicated; Z60.8 Other problems related to social environment; Z95.1 Presence of aortocoronary bypass graft; Z95.0 Presence of cardiac pacemaker; Z82.0 Family history of epilepsy and other diseases of the nervous system; Z79.4 Long term (current) use of insulin; Z91.199 Patient's noncompliance with other medical treatment and regimen due to unspecified reason; Z79.84 Long term (current) use of oral hypoglycemic drugs
CPT/HCPCS: 36415; 70450; 71045; 80048; 80053; 80307; 80320; 81001; 82962; 83605; 83880; 84132; 84484; 85025; 87040; 87081; 93005; 96361; 96374; 99291; G0378; J1815